=== PATIENT | female | born 1990 | race Caucasian/White ===

== ENCOUNTER 2022-04-04 09:40 | Emergency (ER) | payer OTHER, SELFPAY ==
--- NOTE | 2022-04-04 | ECG_ITS ---
Test Reason : syncopal episode Blood Pressure : / mmHG Vent. Rate : 076 BPM Atrial Rate : 076 BPM P-R Int : 142 ms QRS Dur : 086 ms QT Int : 360 ms P-R-T Axes : 047 057 038 degrees QTc Int : 405 ms Normal sinus rhythm Normal ECG No previous ECGs available Referred By: Generic ED Physician Electronically Signed By:Jaycob Gutiérrez
--- NOTE | ~2022-04-04 | XR_ITS ---
EXAMINATION: XR CHEST CLINICAL INFORMATION: Shortness of breath. COMPARISON: None TECHNIQUE: 2 views of the chest were obtained. FINDINGS: The lungs are clear. The cardiomediastinal silhouette is normal in size. There is no pleural effusion or pneumothorax. No acute osseous abnormality. XR/XR chest 2V IMPRESSION: No acute cardiopulmonary findings.
[2022-04-04 09:59] VITALS: BP 119/75; PULSE 78; RESP 18; TEMP 36.6; O2SAT 98; BMI 23.3
[2022-04-04 10:11] LABS: MANUAL DIFF FLAG NO
[2022-04-04 10:12] LABS: Basophils Percent Auto 0.2 % (0-2); Eosinophils Percent Auto 0.8 % (0-4); Hematocrit 38.3 % (37.0-47.0); Hemoglobin 12.8 g/dl (12.0-16.0); Imm Gran Abs Auto 0.01 X10*3/uL (0.00-0.03); Imm Gran Pct Auto 0.2 % (0.0-0.4); Lymphocytes Absolute Auto 0.7 X10*3/uL (1.2-4.9); Lymphocytes Percent Auto 13.1 % (20-40); Mean Corpuscular HGB Conc 33.4 g/dl (31.0-35.0); Mean Corpuscular Hemoglobin 29.9 pg (27.0-33.0); Mean Corpuscular Volume 89.5 fL (80.0-98.0); Mean Platelet Volume 10.2 fL (9.4-12.3); Monocytes Absolute Auto 0.2 X10*3/uL (0.1-1.2); Monocytes Percent Auto 4.8 % (2-11); Neutrophils Percent Auto 80.9 % (45-73); Platelet Count 203 X10*3/uL (160-400); Red Blood Count 4.28 X10*6/uL (4.20-5.50); Red Cell Distribution Width 13.2 % (11.0-16.0)
[2022-04-04 10:26] LABS: Alanine Aminotransferase < 6 U/L (0-31); Albumin Level 4.1 g/dL (3.5-5.0); Alkaline Phosphatase 53 U/L (39-117); Anion Gap 13 (12-20); Aspartate Amino Transferase 11 U/L (5-31); Bilirubin Total 0.6 mg/dL (0.0-1.0); Blood Urea Nitrogen 11 mg/dL (9-16); Calcium 8.4 mg/dL (8.4-10.2); Carbon Dioxide 22 mmol/L (22-29); Chloride 107 mmol/L (96-108); Creatinine Clr Calc Pharmacy 99.5; Estimated Glomerular Filt Rate > 60; Glucose Random 96 mg/dL (60-115); Potassium 3.7 mmol/L (3.3-5.1); Sodium 138 mmol/L (135-145); Total Protein 6.7 g/dL (6.5-8.0)
[2022-04-04 10:31] VITALS: BP 106/69; PULSE 83
[2022-04-04 10:33] VITALS: BP 118/79; PULSE 87
--- NOTE | 2022-04-04 10:33 | ED_ITS ---
HPI - General Adult General Chief complaint: Syncope Stated complaint: Syncope Time Seen by Provider: 04/04/22 10:16 Source: patient Mode of arrival: ambulatory History of Present Illness HPI narrative: 31-year-old female who presents after a reported ?passing out? last night at approximately 01:00. Patient states that yesterday she began feeling unwell with some epigastric discomfort that is not sharp in nature and denies any vomiting, patient states that she was experiencing a headache and went to take the dog outside and felt lightheaded as well some mild shortness of breath and then states ?it's the next thing I knew I was on the ground?. She then states that when she awoke she was sweaty, continues to feel mildly unwell with some ?body soreness?. Related Data Allergies Allergy/AdvReac Type Severity Reaction Status Date / Time Sulfa (Sulfonamide Allergy Intermediate Swelling Verified 04/04/22 10:25 Antibiotics) Review of Systems Review of Systems: Pertinent positives and negatives as stated in HPI [facility] Past Medical History Source: nursing notes reviewed Medical History Patient denies medical problems Social History Social History Alcohol intake: current Alcohol intake frequency: holidays/special occasions only Smoked in Last 30 Days: No Use of substances other than those prescribed or required for medical reasons: No Advance Directives: No Advance Directives Information Provided: No Patient : No Physical Exam ED Vital Signs: Vital Signs - 24 hr 04/04/22 09:59 04/04/22 10:31 04/04/22 10:33 Temperature 98 F Pulse Rate 78 83 87 Respiratory Rate 18 Blood Pressure 119/75 106/69 118/79 Pulse Oximetry 98 Oxygen Delivery Method Room Air 04/04/22 10:35 Temperature Pulse Rate 99 Respiratory Rate Blood Pressure 110/81 Pulse Oximetry Oxygen Delivery Method BMI result Body Mass Index 23.3 VITAL SIGNS: Reviewed. GENERAL: Well developed, well nourished, in no acute distress. HEAD: Normocephalic/atraumatic EYES: PERRLA, EOMI, no nystagmus EARS: Ext canals without abnormality, TMs non-bulging and non-erythematous NOSE: Nares patent bilateral OROPHARYNX: no oral lesions noted, posterior pharynx clear and non-erythematous without noted tonsillar enlargement/erythema/exudates NECK: Supple, no adenopathy LUNGS: Normal breath sounds. No adventitious sounds or accessory muscle use. SpO2<98> CARDIOVASCULAR: Regular rate and rhythm without noted murmurs, no JVD or lower extremity edema. ABDOMEN: Soft, non-tender, non-distended with bowel sounds. MUSCULOSKELETAL: No tenderness, deformities, or effusions noted on gross insp ection. EXTREMITIES: No cyanosis, clubbing or edema. SKIN: Inspection of the skin reveals no rashes NEUROLOGIC: Alert and oriented x 4. Strength and sensation to light touch were grossly intact x 4. Medical Decision Making Medical Decision Making [facility] Narrative: 31-year-old female with history of vasovagal syncope and on review of all investigations my interpretation is there is no evidence of acute infection, anemia, arrhythmia and viral testing at this time for COVID-19 and influenza is negative. Patient's orthostatics are negative. Review of all investigations and my interpretation is that although this patient is testing negative for COVID/RSV/influenza I suspect that this is a viral illness in etiology and she is otherwise discharged home with instructions for supportive treatment such as Tylenol/ibuprofen for body aches and headache, drinking plenty of fluids and resting. Orthostatics are negative and there are no focal findings. Differential Diagnosis Differential Diagnoses: The differential diagnosis associated with the presentation includes Please see the discussion above Lab Data [facility] Lab Attestation statement: I reviewed the patient's lab results. Please see the discussion above 04/04/22 10:07 04/04/22 10:07 Labs: Lab Results 04/04/22 04/04/22 04/04/22 Range/Units 10:07 10:07 10:07 WBC 5.0 (4.8-10.8) X10*3/uL RBC 4.28 (4.20-5.50) X10*6/uL Hgb 12.8 (12.0-16.0) g/dl Hct 38.3 (37.0-47.0) % MCV 89.5 (80.0-98.0) fL MCH 29.9 (27.0-33.0) pg MCHC 33.4 (31.0-35.0) g/dl RDW 13.2 (11.0-16.0) % Plt Count 203 (160-400) X10*3/uL MPV 10.2 (9.4-12.3) fL Immature Gran % (Auto) 0.2 (0.0-0.4) % Neut % (Auto) 80.9 H (45-73) % Lymph % (Auto) 13.1 L (20-40) % Amelia % (Auto) 4.8 (2-11) % Eos % (Auto) 0.8 (0-4) % Baso % (Auto) 0.2 (0-2) % Lymph # (Auto) 0.7 L (1.2-4.9) X10*3/uL Amelia # (Auto) 0.2 (0.1-1.2) X10*3/uL Eos # (Auto) 0.0 (0.0-0.4) X10*3/uL Baso # (Auto) 0.0 (0.0-0.2) X10*3/uL Abs Immat Gran (auto) 0.01 (0.00-0.03) X10*3/uL Absolute Neuts (auto) 4.0 (2.0-8.3) x10*3/uL Absolute Nucleated RBC 0.000 (0.0-0.012) X10*3/uL Nucleated RBC % (auto) 0.0 (0.0-0.2) /100WBC Sodium 138 (135-145) mmol/L Potassium 3.7 (3.3-5.1) mmol/L Chloride 107 (96-108) mmol/L Carbon Dioxide 22 (22-29) mmol/L Anion Gap 13 (12-20) BUN 11 (9-16) mg/dL Creatinine 0.75 (0.5-1.4) mg/dL Estim Creat Clear Calc 99.5 Estimated GFR > 60 Random Glucose 96 (60-115) mg/dL Calcium 8.4 (8.4-10.2) mg/dL Total Bilirubin 0.6 (0.0-1.0) mg/dL AST 11 (5-31) U/L ALT < 6 (0-31) U/L Alkaline Phosphatase 53 (39-117) U/L Total Protein 6.7 (6.5-8.0) g/dL Albumin 4.1 (3.5-5.0) g/dL Urine Color Urine Appearance Urine pH (5.0-9.0) Ur Specific [place] (1.005-1.025) Urine Protein (Neg-Trace) mg/dL Urine Glucose (UA) (Negative) mg/dL Urine Ketones (Negative) mg/dL Urine Blood (Negative) Urine Nitrite (Negative) Ur Leukocyte Esterase (Negative) Urine Test (NEGATIVE) Monoscreen (Negative) Influenza Type A (PCR) NEGATIVE (Negative) Influenza Type B (PCR) NEGATIVE (Negative) RSV RNA Qual (PCR) NEGATIVE (Negative) SARS-CoV-2 RNA (RT-PCR) NEGATIVE (Negative) 04/04/22 04/04/22 04/04/22 Range/Units 10:07 10:30 10:30 WBC (4.8-10.8) X10*3/uL RBC (4.20-5.50) X10*6/uL Hgb (12.0-16.0) g/dl Hct (37.0-47.0) % MCV (80.0-98.0) fL MCH (27.0-33.0) pg MCHC (31.0-35.0) g/dl RDW (11.0-16.0) % Plt Count (160-400) X10*3/uL MPV (9.4-12.3) fL Immature Gran % (Auto) (0.0-0.4) % Neut % (Auto) (45-73) % Lymph % (Auto) (20-40) % Amelia % (Auto) (2-11) % Eos % (Auto) (0-4) % Baso % (Auto) (0-2) % Lymph # (Auto) (1.2-4.9) X10*3/uL Amelia # (Auto) (0.1-1.2) X10*3/uL Eos # (Auto) (0.0-0.4) X10*3/uL Baso # (Auto) (0.0-0.2) X10*3/uL Abs Immat Gran (auto) (0.00-0.03) X10*3/uL Absolute Neuts (auto) (2.0-8.3) x10*3/uL Absolute Nucleated RBC (0.0-0.012) X10*3/uL Nucleated RBC % (auto) (0.0-0.2) /100WBC Sodium (135-145) mmol/L Potassium (3.3-5.1) mmol/L Chloride (96-108) mmol/L Carbon Dioxide (22-29) mmol/L Anion Gap (12-20) BUN (9-16) mg/dL Creatinine (0.5-1.4) mg/dL Estim Creat Clear Calc Estimated GFR Random Glucose (60-115) mg/dL Calcium (8.4-10.2) mg/dL Total Bilirubin (0.0-1.0) mg/dL AST (5-31) U/L ALT (0-31) U/L Alkaline Phosphatase (39-117) U/L Total Protein (6.5-8.0) g/dL Albumin (3.5-5.0) g/dL Urine Color Yellow Urine Appearance Clear Urine pH 6.0 (5.0-9.0) Ur Specific [place] <= 1.005 (1.005-1.025) Urine Protein Negative (Neg-Trace) mg/dL Urine Glucose (UA) Negative (Negative) mg/dL Urine Ketones Negative (Negative) mg/dL Urine Blood Negative (Negative) Urine Nitrite Negative (Negative) Ur Leukocyte Esterase Negative (Negative) Urine Test NEGATIVE (NEGATIVE) Monoscreen Negative (Negative) Influenza Type A (PCR) (Negative) Influenza Type B (PCR) (Negative) RSV RNA Qual (PCR) (Negative) SARS-CoV-2 RNA (RT-PCR) (Negative) Independent Interpretation I performed an independent interpretation of an: EKG Interpretation: Normal sinus rhythm, HR-76, no STEMI, OH/QRS/QTC is within normal limits. Radiology Impression Radiologist Impression: My interpretation is in agreement with radiology's impression of the imaging study. Discharge Plan Discharge Clinical Impression: Vasovagal syncope, Viral syndrome Patient Disposition: Home, Self-Care Additional Instructions: 1. Recommend [id number] Tylenol/ibuprofen as needed for any headaches or body aches or temperatures greater than 100.4. Drink plenty of water, rest, recommend bland diet. 2. Please follow-up with your primary care provider by calling the office on Tuesday and setting up an appointment for re-evaluation. Return to the ER for any worsening symptoms. Stand Alone Forms: Work/School Release
[2022-04-04 10:35] VITALS: BP 110/81; PULSE 99
--- NOTE | 2022-04-04 10:36 | PC.NURSE ---
AOx3, vss stable. 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 Ortho vitals obtained. waiting for provider.
[2022-04-04 10:38] LABS: Appearance Urine Clear; Color Urine Yellow; Glucose Urine UA Negative (Negative); Leukocyte Esterase Urine Negative (Negative); Nitrite Urine Negative (Negative); Specific Gravity - Urine <= 1.005 (1.005-1.025); Urine Blood Negative (Negative); Urine Ketones Negative (Negative); Urine Protein Negative (Neg-Trace)
[2022-04-04 10:40] LABS: UPreg QC Valid YES; Urine Pregnancy NEGATIVE (NEGATIVE)
[2022-04-04 10:50] LABS: Influenza A PCR NEGATIVE (Negative); Influenza B PCR NEGATIVE (Negative); Resp Syncy Virus RNA Qual PCR NEGATIVE (Negative); SARS COV2 PCR INHOUSE NEGATIVE (Negative)
[2022-04-04 11:33] LABS: Monotest Negative (Negative)
== END 2022-04-04 12:39 | disposition home or self-care (01) ==
PROVIDERS: Emergency Provider Student in an Organized Health Care Education/Training Program
DX: R55 Syncope and collapse (principal); B34.9 Viral infection, unspecified; R51.9 Headache, unspecified; M79.10 Myalgia, unspecified site; Z20.822 Contact with and (suspected) exposure to COVID-19; Z20.828 Contact with and (suspected) exposure to other viral communicable diseases; Z79.899 Other long term (current) drug therapy
CPT/HCPCS: 0241U; 36415; 71046; 80053; 81003; 81025; 85025; 86308; 93005; 99284

== ENCOUNTER 2024-01-12 11:00 | Outpatient (AMB) | payer OTHER, SELFPAY ==
--- NOTE | 2024-01-12 11:15 | MHC.OFFVIS ---
Vital Signs 01/12/24 11:18 Height 5 ft 5 in Weight 146 lb 8 oz BMI 24.4 BP 115/78 Blood Pressure Location Lt brachial Position Sitting Pulse 68 Pulse Source Pulse Oximeter Pulse Oximetry (%) 99 Oxygen Delivery Method Room Air Intake Visit Reasons: J-XL-Ztq-suncope/Change visual/fatigue Engagement Quality Consultant Required: No Accompanied by: Self / Same As Patient Allergies Sulfa (Sulfonamide Antibiotics) Allergy (Intermediate, Verified 01/12/24 11:19) Swelling Medication List - Last Reconciled 01/12/24 by CARLENE Vang sertraline 25 mg PO DAILY 30 days sumatriptan succinate 50 - 100 mg orally at onset of headache, may repeat in 2 hrs PRN; max 2 tabs per day or 4 tabs/week (may take with Ibuprofen) 30 days Do you need a note to return to daycare/school/sports/work: No HPI Comments Details: Right-handed 33-yr-old female presents for new pt evaluation of headache and brain fog. Pt reports she has had episodes of brain fog, poor recall, forgetfulness. The brain fog started about a year after having mild case of Covid-19 in Feb 2020. She has always been a prone to forgetfulness. The brain fog does not occur every day. Often feels that she cannot think, has run out of battery by the end of the day. She forgets why she went into a room, has poor time management, is always late, procrastinates- her whole life. She completed highschool- was a good student, but could not do work w/o waiting until the last minute. Started an associate's program- did not finish, ? difficulty focusing. Also reports her left eye became worse over a year period- saw an ferryboat operator cable at [facility], who dx'd dry eye. Pt reports that this has not improved. Her most bothersome symptoms are brain fog, forgetfulness, and back pain. 2022 Brain MRI w/wo- unremarkable Rheumatology work-up- labs and x-rays were normal. Was referred to cardiology- but missed appt. She also endorses constant phonophobia. When she the brain fog- has episodes of retroorbital or temporal mild sharp shooting pains She has a pressure headache about once a week which lasts until she goes to sleep, a/w eyes feel straining, photophobia, more phonophobia, overall tiredness. Bending over exacerbates head pressure and causes runny nose. She always feels off-balance. She has had a couple of syncope- states she knew she was about to pass out. She had stood up to take her dog out in the middle of the night- started sweating, ear ringing, f/b passing out for a brief moment (still felt like she was thinking)- denies interictal tongue biting or loss of spincter control. Denies being ill prior to the syncopal event. She has had other episodes of feeling near syncopal, which resolve with sitting down. She also endorses anemia. She works in [email or web address] in [place] [employer]. PMH and ROS are notable for:? General: anemia, purplish/blue extremities Musculoskeletal disorders or injury: neck and back pain. feeling of hair tied around her left 3rd toe. easily prone to limb falling asleep if limb compressed. Mood d/o: Anxiety History of syncope GI d/o: GERD, diarrhea alternating w/ constipation. Had stool sample for OP- neg. 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 History of concussion/head injury, Respiratory d/o, CV disease, Clotting or hematology d/o, Endocrine d/o, metabolic d/o. History of seizure. Family history of similar s/s [facility] [place] Medical History Patient denies medical problems Social History Alcohol intake: current Alcohol intake frequency: holidays/special occasions only Physical Exam Vital Signs: Last Vital Signs Pulse 68 01/12/24 11:18 BP 115/78 01/12/24 11:18 Pulse Ox 99 01/12/24 11:18 Oxygen Delivery Method Room Air 01/12/24 11:18 BMI result Body Mass Index 24.4 Const Orientation/consciousness: patient oriented x3 Resp Effort & Inspection: normal respiratory effort and able to speak in complete sentences Neuro Other: Bilateral marked posterior cervical tightness. Cervical ROM: limited cervical extension Kyphosis Bilateral Spurling: negative, though does induce posterior cervical discomfort Right shoulder drooped at rest Negative Fletcher's BLE purplish at rest, resolves with taking a few steps, but quickly returns General: patient oriented x3 Cranial nerves: Yes CN's II-XII intact bilaterally Cognition (Neuro): normal cognition Gait exam (Neuro): Normal gait present Motor exam (neuro): 5/5 motor strength present throughout Deep tendon reflexes (DTR's): Right triceps reflex intensity grade: 2+, Left triceps reflex intensity grade: 2+, Rt Biceps (C5, C6): 2+, Left biceps reflex intensity grade: 2+, Right brachioradialis reflex intensity grade: 2+, Left brachioradialis reflex intensity grade: 2+, Right patellar reflex intensity grade: 2+ and Left patellar reflex intensity grade: 2+ Coordination: [id number]-[id number] test normal, tandem gait normal and Romberg test negative Pupils: Normal pupillary reactivity/response: bilateral Psych Appearance: grossly normal Mental Status: mental status grossly normal Speech and movement: Normal speech and movement present Affect: normal affect Attitude: cooperative Thought process: Normal thought process present Assessment & Plan Assessment & Plan (1) Syncope: Code(s): R55 - Syncope and collapse Category: Medical Qualifiers: Syncope type: unspecified Qualified Code(s): R55 - Syncope and collapse (2) Pre-syncope: Code(s): R55 - Syncope and collapse Category: Medical (3) Brain fog: Comment: DDx includes migraine, vestibular migraine, ADHD, vascular d/o. Code(s): R41.89 - Other symptoms and signs involving cognitive functions and awareness Category: Medical (4) Cervicalgia: Code(s): M54.2 - Cervicalgia Category: Medical (5) Kyphosis: Code(s): M40.209 - Unspecified kyphosis, site unspecified Category: Medical Qualifiers: Kyphosis type: unspecified Spinal region: cervicothoracic Qualified Code(s): M40.203 - Unspecified kyphosis, cervicothoracic region (6) Decreased vision of left eye: Code(s): H54.62 - Unqualified visual loss, left eye, normal vision right eye Category: Medical (7) Anxiety: Code(s): F41.9 - Anxiety disorder, unspecified Category: Medical (8) Migraine without aura: Code(s): G43.009 - Migraine without aura, not intractable, without status migrainosus Category: Medical Qualifiers: Status migrainosus presence: without status migrainosus Intractability: not intractable Qualified Code(s): G43.009 - Migraine without aura, not intractable, without status migrainosus Plan Reviewed previous c-spine and t-spine XR reprots from July 2023 at the [facility]- read as normal. Pt advised to undergo: Cardiology consult d/t h/o syncope Psychiatry consult to eval for cognitive s/s, ? ADD Ophthalmology consult for visual testing if not completed PT eval & tx For overall management: Optimize good self-care, including but not limited to maintaining a healthy diet, adequate fluid intake, adequate sleep, and engaging in regular physical activity. Track headaches/brain fog/syncopal s/s, especially after any treatment regimen changes. Migraine [employer] is one of many headache tracking apps. Information shared on non-pharmacological interventions which may help to alleviate headache attack burden. For light sensitivity: Patient may benefit from trying blue light filtering glasses, green glasses orlight tx. For sound sensitivity: Patent may benefit from trying noise cancellation ear plugs. For acute headache treatment: Discussed importance of taking acute medications at the first sign of headache, however stressed importance of avoiding acute medication overuse (especially with combined headache medications). Trial Sumatriptan 100mg tab, 1/2 - 1 tab (50-100mg) at onset of headache, may repeat in 2 hours. Max of 2 tabs (200mg) per 24 hours. May adjunct with OTC Tylenol 650mg q 4 hours, Ibuprofen 600mg q 6 hours, or Naproxen 440mg q 12 hrs prn. Potential adverse effects of triptans, include but are not limited to nausea, fatigue, chest tightness/tingling (usually passes within a few minutes), medication overuse headaches. Would like to see which of her s/s are triptan responsive. Previous acute migraine medication trials: none at this time Acute migraine medication contraindications: None at this time For headache prevention medication: Preventative medications should be taken routinely as prescribed for best effect, it may take several weeks for full effect to take effect. Start Sertraline 25mg qam- may help syncopal/pre-syncopal episodes, dizziness, brain fog. Previous migraine prevention medication trials: none at this time Migraine prevention medication contraindications: caution w/ anti-hypertensives d/t h/o syncope. Aimovig d/t possible Raynaud's or diminished peripheral circulation. Pt seen in collaboration w/ Dr Kesha Pickens. Pt to follow-up in 3 months or sooner prn. Orders: Orders PT Evaluation and Treatment 01/12/24 M40.209 - Unspecified kyphosis, site unspecified, M54.2 - Cervicalgia, M54.9 - Dorsalgia, unspecified Referrals Ophthalmology Referral H54.62 - Unqualified visual loss, left eye, normal vision right eye Cardiology Referral R55 - Syncope and collapse Psychiatry Referral F41.9 - Anxiety disorder, unspecified, R41.89 - Other symptoms and signs involving cognitive functions and awareness Medications: New sertraline 25 mg PO DAILY 30 tabs 3RF 30 days sumatriptan succinate 50 - 100 mg orally at onset of headache, may repeat in 2 hrs PRN; max 2 tabs per day or 4 tabs/week (may take with Ibuprofen) 12 tabs 6RF migraine headache 30 days Coding Level of Care Code New Pt Level 4 (11650) Diagnoses Syncope, unspecified syncope type R55 Syncope type: unspecified Pre-syncope R55 Brain fog R41.89 Cervicalgia M54.2 Kyphosis of cervicothoracic region, unspecified kyphosis type M40.203 Kyphosis type: unspecified Spinal region: cervicothoracic Decreased vision of left eye H54.62 Anxiety F41.9 Migraine without aura and without status migrainosus, not intractable G43.009 Status migrainosus presence: without status migrainosus Intractability: not intractable
[2024-01-12 11:18] VITALS: BP 115/78; PULSE 68; O2SAT 99; BMI 24.4
== END 2024-01-12 12:33 | disposition home or self-care (01) ==
LOC: HO.HSMS 11:01
PROVIDERS: PCP Internal Medicine; Visit Provider Nurse Practitioner Family
DX: R55 Syncope and collapse (principal); R41.89 Other symptoms and signs involving cognitive functions and awareness; M54.2 Cervicalgia; M40.203 Unspecified kyphosis, cervicothoracic region; H54.62 Unqualified visual loss, left eye, normal vision right eye; F41.9 Anxiety disorder, unspecified; G43.009 Migraine without aura, not intractable, without status migrainosus
CPT/HCPCS: 99204

== ENCOUNTER 2024-02-09 13:53 | Outpatient (AMB) | payer OTHER, SELFPAY ==
--- NOTE | 2024-02-09 13:55 | A.OFFPSYCH_ITS ---
Intake Intake Visit Reasons: consultation Director Of Distance Learning Required: No Allergies Sulfa (Sulfonamide Antibiotics) Allergy (Intermediate, Verified 01/12/24 11:19) Swelling Medication List - Last Reconciled 02/09/24 by Lakisha Bruce APRN sertraline 25 mg PO DAILY 30 days sumatriptan succinate 50 - 100 mg orally at onset of headache, may repeat in 2 hrs PRN; max 2 tabs per day or 4 tabs/week (may take with Ibuprofen) 30 days HPI- Psychiatric Chief Complaint: consultation HPI Narrative: pt was referred by neurologist for evaluation of attention and concentration difficulties. Pt reports she is struggling with brain fog difficulty focusing, mind all ove rthe place frequently feeling overwhelemed with too much on her plate, too much nois, interuptions by others. She reports she has always struggled with these symptoms but she has more demands on her and finds herself tired from trying to deal with the symptoms; she has tried many things to cope. She uses reminders and calendars. she got good grades in school growing up but always waited till the last minute to do things. she procrastinated until she got so anxious and stressed that she would then complete assignments. Pt says she worries and feels anxious about lists of things she needs to do. she can get anxious and irritable if daughter interupts her focus or when tries to tell her too many items on schedule. She feels tired all the time. she finds it hard to relax and unwind. She is very forgetful. She scored an 18 on ADHD scale (ASRS-v1.1) Her PHQ9= 1 and her GAD7= 3. Pt does have trauma in her upbringing but has coped well and some intrusive memories but they are not overwhelming and her sleep is intact; she has nightmares occasionally but not consistently. she did not describe avoidance of traumatic reminders. Past Psychiatric History: none Subjective Subjective Subjective Medication Compliance: Yes Side effects from medications: No Review of Systems Medical Review of Systems: unchanged Mental Status Exam Mental Status Exam Patient Appearance: Well Grooomed and Appropriate Patient Orientation: Person, Place and Time Level of Consciousness: Awake, Appropriate and Alert Patient Behavior: Appropriate, Cooperative and Good Eye Contact Mood Description: Appropriate and Anxious Affect Description: Appropriate and Anxious Patient Cognition Impaired: No Ability to Follow Directions: Good Speech Pattern: Clear, Appropriate and Soft-Spoken Memory Description: Intact Hallucinations: None Delusions: Not Present Thought Process: Intact and Goal Oriented Thought Content: positive for Intact and positive for Goal Oriented Judgement: Good Assessment and Plan Assessment & Plan (1) ADHD (attention deficit hyperactivity disorder): Status: Acute Qualifiers: Attention deficit-hyperactivity disorder type: combined inattentive- hyperactive Qualified Code(s): F90.2 - Attention-deficit hyperactivity disorder, combined type Code(s): F90.9 - Attention-deficit hyperactivity disorder, unspecified type Plan Differential dx is PTSD discussed options for treating Adult ADHD trial of addertall 5mg BID; start with 1/2 tab and if no SE then increase to 5 mg and may increase to 10mg BID 4 hours apart return in 4 weeks labs ordered as below to rule out medical etiology to inattention and distractibility Medications: New dextroamphetamine-amphetamine 5 mg (Adderall) administer doses at least 4-6 hours apart; Partial Fill upon patient request. 5 mg PO BID 60 tabs 0RF Orders: Orders Vitamin B12 and Folate Today F90.9 - Attention-deficit hyperactivity disorder, unspecified type Vitamin B1 Today F90.9 - Attention-deficit hyperactivity disorder, unspecified type Vitamin B6 Today F90.9 - Attention-deficit hyperactivity disorder, unspecified type TSH reflex Free T4 Today F90.9 - Attention-deficit hyperactivity disorder, unspecified type Counseling and coordination of Care Pt. Self Management counseling: Maintenance-social rhythm, Mod caffeine/ETOH intake, Sleep hygiene, Behavior activation and General coping skills Medication management counseling: Effectiveness, Side effects, Dosing range, Duration, Drug interaction and Adherence Diagnosis and Prognosis Counseling: Accuracy of diagnosis, Prognosis over time, Impact of diagnosis on life functions, Impact of family relationship, Problematic behaviors secondary to diagnosis and Adequacy of current interventions Details: I spent 75 minutes reviewing the record, seeing the patient and documenting in the medical record. Counseling provided to the patient/caregiver as outlined below. Addressed patient/caregiver concerns regarding current medication regime including effective adherence. Addressed patient/caregiver concerns regarding diagnosis and prognosis including accuracy of diagnosis, prognosis over time, impact of diagnosis. Addressed patient/caregiver concerns regarding impact of recent stressors. 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 Grew up mostaly with grandmother as parents had addiction issues; she and her younger sister went to foster care off and on. She and sister spent 2 yrs in foster care until pt turned 20 and then she took custody of her younger sister. she also has 2 older sister one of whom recently from metastatic breast cancer. Substance History: none Trauma History: yes childhood Coding Level of Care Code Psych Diag Eval w/Med (24102) Diagnoses Attention deficit hyperactivity disorder (ADHD), combined type F90.2 Attention deficit-hyperactivity disorder type: combined inattentive-hyperactive
== END 2024-02-09 15:19 | disposition home or self-care (01) ==
LOC: HO.HOP 13:53
PROVIDERS: PCP Internal Medicine; Visit Provider Clinical Nurse Specialist Psychiatric/Mental Health
DX: F90.2 Attention-deficit hyperactivity disorder, combined type (principal)
CPT/HCPCS: 90792

== ENCOUNTER → 2024-02-09 13:53 | Outpatient (BNVA) | payer OTHER, SELFPAY | PROVIDERS: PCP Internal Medicine; Visit Provider Clinical Nurse Specialist Psychiatric/Mental Health | DX: F90.2 Attention-deficit hyperactivity disorder, combined type (principal); Z71.89 Other specified counseling | CPT/HCPCS: 90792 ==

== ENCOUNTER 2024-03-05 09:00 | Outpatient (RCR) | payer OTHER, SELFPAY ==
--- NOTE | 2024-02-15 09:44 | MHC.PT.EP ---
[facility] [place] Office [place] Office [place] Office [address] Evelin Madrigal [address] [phone] F: [phone] F: [phone] F: [phone] F: [phone] Physical Therapy Plan of Care Date of Evaluation: 02/15/24 Date of Surgery: n/a Diagnosis: cervicalgia Assessment: Patient is a 33 year old female presenting to PT with complaints of pain in her neck. Pt reports onset of pain began July2023 due to insidious onset. She presents today with impairments in posture, tenderness to palpation. 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 Pt expresses custodial goal of reducing pain, and is motivated to work towards this in PT. Clinical presentation today is most consistent with signs and sx associated with neck pain and pt will benefit from skilled PT 2 week x 4 weeks to address the following problems and impairments noted upon evaluation: posture, tenderness to palpation. These problems limit the patient with the following functional activities: work, ADLs, household duties. The prescribed treatment plan of care is medically necessary. Co-morbidities of hx seizure were identified and taken into considerations of plan of care. Pt was educated on HEP, role of PT, prognosis, POC. Frequency and Duration: The patient will be seen 2 x week x 4 weeks Short Term Goals: Pt will demonstrate ability to move through cervical ROM with min to no tightness in 2 weeks. Pt will demonstrate improved posture as evidence by min to no cues during session in 2 weeks. Pt will demonstrate less tenderness to palpation of UT, rhomboids, and cervical paraspinals in 2 weeks. Jail Goals: Pt will demonstrate improved NDI score by 10% in 4 weeks for improved functional mobility. Pt will demonstrate compliance and independence with HEP for custodial management of sx in 4 weeks. Pt will demonstrate ability to work a full day with min to no pain at the end in 4 weeks for return to PLOF. Treatment Plan: Modalities to reduce pain, spasms and effusion. Manual therapy to restore motion and function. Therapeutic exercise to improve strength and flexibility. Neuromuscular re-education for posture and balance. Therapeutic activities to return to functional activities of daily living. Electronically signed by: Nadine Kahn, PT, DPT, ATC Please sign and return to therapist. Thank you for your referral.
--- NOTE | 2024-04-09 08:13 | MHC.PT.DC ---
[facility] [place] Office [place] Office [place] Office [address] Evelin Madrigal [address] [phone] F: [phone] F: [phone] F: [phone] F: [phone] Physical Therapy Discharge Report Diagnosis: cervicalgia Date of Surgery: n/a Date of Evaluation: 02/15/24 Date of Discharge: 04/09/24 Treatments to Date: 3 Cancellations to Date: 2 No Shows to Date: 0 Discharge Status: Discharge Summary: Pt cancelled last scheduled appointment and has not called to be scheduled in > 30 days. Pt therefore to be d/c per policy. Electronically signed by: Nadine Kahn, PT, DPT, ATC Please sign and return to therapist. Thank you for your referral.
== END 2024-04-09 08:14 | disposition home or self-care (01) ==
LOC: HO.PTCHIC 09:00
PROVIDERS: PCP Internal Medicine; Visit Provider Nurse Practitioner Family
DX: M54.2 Cervicalgia (principal); M54.9 Dorsalgia, unspecified; M40.209 Unspecified kyphosis, site unspecified
CPT/HCPCS: 97110; 97161

== ENCOUNTER 2024-03-08 09:36 | Outpatient (AMB) | payer OTHER, SELFPAY ==
--- NOTE | 2024-03-08 09:23 | A.OFFPSYCH_ITS ---
Intake Intake Visit Reasons: consultation Director Of Financial Reporting Required: No Allergies Sulfa (Sulfonamide Antibiotics) Allergy (Intermediate, Verified 01/12/24 11:19) Swelling Medication List - Last Reconciled 03/08/24 by Lakisha Bruce APRN dextroamphetamine-amphetamine 5 mg (Adderall) 5 mg PO BID sertraline 25 mg PO DAILY 30 days sumatriptan succinate 50 - 100 mg orally at onset of headache, may repeat in 2 hrs PRN; max 2 tabs per day or 4 tabs/week (may take with Ibuprofen) 30 days HPI- Psychiatric Chief Complaint: consultation HPI Narrative: pt reports adderall 5 mg qam is very helpful; she feels calm and focused. she is more able to stay on task. no side effects; sleep and appetite intact. mood stable anxiety is reduced; no SI or HI. no medical changes. Past Psychiatric History: none Subjective Subjective Subjective Medication Compliance: Yes Side effects from medications: No Review of Systems Medical Review of Systems: unchanged Mental Status Exam Mental Status Exam Patient Appearance: Well Grooomed and Appropriate Patient Orientation: Person, Place, Time and Situation Level of Consciousness: Awake and Appropriate Patient Behavior: Appropriate, Cooperative and Good Eye Contact Mood Description: Calm Affect Description: Calm and Constricted Patient Cognition Impaired: No Ability to Follow Directions: Good Speech Pattern: Clear, Appropriate and Coherent Memory Description: Intact Hallucinations: None Delusions: Not Present Thought Process: Intact and Goal Oriented Thought Content: positive for Intact Judgement: Good Assessment and Plan Assessment & Plan (1) ADHD (attention deficit hyperactivity disorder): Status: Acute Qualifiers: Attention deficit-hyperactivity disorder type: combined inattentive- hyperactive Qualified Code(s): F90.2 - Attention-deficit hyperactivity disorder, combined type Code(s): F90.9 - Attention-deficit hyperactivity disorder, unspecified type Plan continue adderall - may increase by 5 mg increments to bis or tid 4 hours apart; pt starts day at 530am and may need tid dosing; will see again in 8 weeks to adjust dose or switch to long acting if needed Medications: New dextroamphetamine-amphetamine 10 mg (Adderall) administer doses at least 4-6 hours apart; Partial Fill upon patient request. 10 mg PO BID 60 tabs 0RF Discontinued sertraline Discontinued Reason: Doctor's Order 25 mg PO DAILY 30 days 30 tabs 3RF Counseling and coordination of Care Pt. Self Management counseling: Exercise, Maintenance-social rhythm, Mod caffeine/ETOH intake, Nutrition education and improvement, Sleep hygiene, Behavior activation and General coping skills Medication management counseling: Effectiveness, Side effects, Dosing range, Duration, Drug interaction and Adherence Diagnosis and Prognosis Counseling: Accuracy of diagnosis, Prognosis over time, Impact of diagnosis on life functions, Impact of family relationship, Problematic behaviors secondary to diagnosis and Adequacy of current interventions Details: I spent 40 minutes reviewing the record, seeing the patient and documenting in the medical record. Counseling provided to the patient/caregiver as outlined below. Addressed patient/caregiver concerns regarding current medication regime including effective adherence. Addressed patient/caregiver concerns regarding diagnosis and prognosis including accuracy of diagnosis, prognosis over time, impact of diagnosis. Addressed patient/caregiver concerns regarding impact of recent stressors. 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 Grew up mostaly with grandmother as parents had addiction issues; she and her younger sister went to foster care off and on. She and sister spent 2 yrs in foster care until pt turned 20 and then she took custody of her younger sister. she also has 2 older sister one of whom recently from metastatic breast cancer. Substance History: none Trauma History: yes childhood Coding Level of Care Code Est Pt Level 4 (15533) Diagnoses Attention deficit hyperactivity disorder (ADHD), combined type F90.2 Attention deficit-hyperactivity disorder type: combined inattentive- hyperactive
== END 2024-03-08 09:40 | disposition home or self-care (01) ==
PROVIDERS: PCP Internal Medicine; Visit Provider Clinical Nurse Specialist Psychiatric/Mental Health
DX: F90.2 Attention-deficit hyperactivity disorder, combined type (principal)
CPT/HCPCS: 99214

== ENCOUNTER → 2024-03-08 09:36 | Outpatient (BNVA) | payer OTHER, SELFPAY | PROVIDERS: PCP Internal Medicine; Visit Provider Clinical Nurse Specialist Psychiatric/Mental Health | DX: F90.9 Attention-deficit hyperactivity disorder, unspecified type (principal) ==

== ENCOUNTER 2024-05-04 09:03 | Outpatient (AMB) | payer OTHER, SELFPAY ==
--- NOTE | 2024-05-04 09:09 | MHC.OFFVISPS ---
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 Required: No Allergies Sulfa (Sulfonamide Antibiotics) Allergy (Intermediate, Verified 01/12/24 11:19) Swelling Medication List - Last Reconciled 05/04/24 by Lakisha Bruce APRN dextroamphetamine-amphetamine 10 mg (Adderall) 10 mg PO BID sumatriptan succinate 50 - 100 mg orally at onset of headache, may repeat in 2 hrs PRN; max 2 tabs per day or 4 tabs/week (may take with Ibuprofen) 30 days HPI- Psychiatric Chief Complaint: consultation HPI Narrative: taking adderall 10mg daily and sometimes takes the second dose; she reports improvement; she feels less foggy; she can focus and concentrate better; she iss more productive at work; she denies side effects; appetite and sleep intact; no syncopal episodes; no chest pain. no increase in anxiety; pt does report that after our first meeting she relaized that she does have nightmaress several times a week. she also describes intrusive fearful thoughts and compulsions to do things t dhillon off negative consequences. fro example she must use 4 pumps of body wash or she'll have a bad day- she knows its irrational but has to follwo through on using 4 pumps when 2 would actually be adquate. although she knows its irrational she feels compelled to do it or risk a bad day. she also gives the example of cutting her 8 year olds grapes up very small for lunch at school to prevent choking - she knows its irrational but can not leave them whole due to the intrusive thought that her daughter will choke; we discussed the possibility of OCD and or PTSD. discussed options for meds but she does not want tto take ore medications at this time; she will try thera[y; she has reached out to [facility] but no one has returned her call. Past Psychiatric History: none Subjective Subjective Subjective Medication Compliance: Yes Side effects from medications: No Review of Systems Medical Review of Systems: unchanged Mental Status Exam Mental Status Exam Patient Appearance: Well Grooomed and Appropriate Patient Orientation: Person, Place, Time and Situation Level of Consciousness: Awake, Appropriate and Alert Patient Behavior: Appropriate and Cooperative Mood Description: Anxious Affect Description: Anxious Patient Cognition Impaired: No Ability to Follow Directions: Good Speech Pattern: Clear and Appropriate Memory Description: Intact Hallucinations: None Delusions: Not Present Thought Process: Intact Thought Content: positive for Intact Judgement: Fair Assessment and Plan Assessment & Plan (1) ADHD (attention deficit hyperactivity disorder): Status: Acute Qualifiers: Attention deficit-hyperactivity disorder type: combined inattentive-hyperactive Qualified Code(s): F90.2 - Attention-deficit hyperactivity disorder, combined type Code(s): F90.9 - Attention-deficit hyperactivity disorder, unspecified type Plan rule out OCD rule out PTSD continue adderall 10mg bid as needed Medications: Refilled dextroamphetamine-amphetamine 10 mg (Adderall) administer doses at least 4-6 hours apart; Partial Fill upon patient request. 10 mg PO BID 60 tabs 0RF Counseling and coordination of Care Pt. Self Management counseling: Nutrition education and improvement, Sleep hygiene and General coping skills Medication management counseling: Effectiveness, Side effects, Dosing range, Duration, Drug interaction and Adherence Diagnosis and Prognosis Counseling: Accuracy of diagnosis, Prognosis over time, Impact of diagnosis on life functions, Impact of family relationship, Problematic behaviors secondary to diagnosis and Adequacy of current interventions Details: I spent 35 minutes reviewing the record, seeing the patient and documenting in the medical record. Counseling provided to the patient/caregiver as outlined below. Addressed patient/caregiver concerns regarding current medication regime including effective adherence. Addressed patient/caregiver concerns regarding diagnosis and prognosis including accuracy of diagnosis, prognosis over time, impact of diagnosis. Addressed patient/caregiver concerns regarding impact of recent stressors. 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 Grew up mostaly with grandmother as parents had addiction issues; she and her younger sister went to foster care off and on. She and sister spent 2 yrs in foster care until pt turned 20 and then she took custody of her younger sister. she also has 2 older sister one of whom recently from metastatic breast cancer. Substance History: none Trauma History: yes childhood Coding Level of Care Code Est Pt Level 4 (28488) Diagnoses Attention deficit hyperactivity disorder (ADHD), combined type F90.2 Attention deficit-hyperactivity disorder type: combined inattentive-hyperactive
== END 2024-05-04 09:39 | disposition home or self-care (01) ==
LOC: HO.HOP 09:03
PROVIDERS: PCP Internal Medicine; Visit Provider Clinical Nurse Specialist Psychiatric/Mental Health
DX: F90.2 Attention-deficit hyperactivity disorder, combined type (principal)
CPT/HCPCS: 99214

== ENCOUNTER → 2024-05-04 09:03 | Outpatient (BNVA) | payer OTHER, SELFPAY | PROVIDERS: PCP Internal Medicine; Visit Provider Clinical Nurse Specialist Psychiatric/Mental Health | DX: F90.9 Attention-deficit hyperactivity disorder, unspecified type (principal) ==

== ENCOUNTER 2024-06-06 10:02 | Outpatient (AMB) | payer OTHER, SELFPAY ==
[2024-06-06 10:06] VITALS: BP 100/60; PULSE 68; BMI 22.4
--- NOTE | 2024-06-06 10:06 | A.OFFVIS_ITS ---
Vital Signs 06/06/24 10:06 06/06/24 10:23 06/06/24 10:24 06/06/24 10:27 Height 5 ft 5 in Weight 134 lb 7.712 oz BMI 22.4 BP 100/60 114/71 114/73 118/74 Blood Pressure Location Lt brachial Lt brachial Lt brachial Lt brachial Position Sitting Supine Sitting Standing Pulse 68 73 75 105 H Pulse Source Pulse Oximeter Pulse Oximeter Pulse Oximeter Pulse Oximeter Intake Visit Reasons: Syncope and collapse Allergies Sulfa (Sulfonamide Antibiotics) Allergy (Intermediate, Verified 01/12/24 11:19) Swelling HPI Comments Details: Thank you for referring Keily in cardiology consultation today for symptoms of syncope. Patient was a pleasant 33-year-old female with longstanding history of orthostatic lightheadedness since age of 20. She was started managing this with increase fluid and now increase salt intake. However symptoms persist. She gets symptoms of lightheadedness and tunnel vision and if she does not sit down she has a tendency to pass out. The last episode of syncope was 2 years ago when she was at home and she did not sit down immediately and she found herself on the floor. Symptoms and regained consciousness within less than a minute. There were no seizure-like activities noted. She was sweating profusely at time and with rapid heart rate. She was noted elevated heart rate when she was these episodes of lightheadedness but no rapid palpitations. She has not had any workup in the past for the same. She denies any other symptoms. She exercises regularly and does not get symptoms with exercise. Denies any exertional chest pain or shortness of breath. No heart failure symptoms. Other think she notices when she is sitting for prolonged period of time she notices change in the skin color in the lower extremity. [facility] Medical History Patient denies medical problems Family History Mother No problems noted. Father No problems noted. Social History Alcohol intake: current Alcohol intake frequency: holidays/special occasions only Patient Tobacco Use Status: Never used Tobacco Review of Systems Const Reports daytime sleepiness and Denies weakness ENT Reports dizziness Card Denies chest pain, Denies chest pain with activity, Denies syncope, Denies rapid heart rate, Denies pedal edema, Denies edema, Denies leg edema, Denies lightheadedness, Reports palpitations, Denies dyspnea, Denies dyspnea on exertion and Denies orthopnea Resp Denies cough, Denies dyspnea and Denies dyspnea on exertion GI Denies hematochezia and Denies change in stool character Musc Denies abnormal gait, Denies muscle cramps, Denies muscle weakness, Denies numbness, Denies radiating pain into limb and Denies tingling Neuro Denies abnormal gait, Reports dizziness, Denies syncope, Denies numbness, Denies tingling and Denies weakness Endo Reports palpitations Physical Exam Vital Signs: Last Vital Signs Pulse 105 H 06/06/24 10:27 BP 118/74 06/06/24 10:27 BMI result Body Mass Index 22.4 Const General: cooperative, comfortable, no acute distress, well developed, alert, awake, Physically active and well groomed Nutritional Appearance: well nourished and thin Orientation/consciousness: patient oriented x3 Limitations: no limitations HEENT Head: Yes normocephalic and Yes atraumatic Neck Neck: Yes trachea midline, Yes supple and Yes no JVD Resp Effort & Inspection: normal respiratory effort Auscultation: clear to auscultation bilaterally Cardio Jugular venous distension: no JVD Palpation: normal PMI Rate: regular rate Rhythm: regular rhythm Heart sounds: S1 normal heart sound present, S2 normal heart sound present, no click, no gallops, no murmurs and no rubs GI Auscultation: normal bowel sounds Skin General skin exam: no rashes or lesions noted Neuro General: patient oriented x3 and no focal motor deficits Extrem General: Yes no clubbing, cyanosis or edema Office Procedures EKG Details: EKG shows normal sinus rhythm with short VA otherwise normal EKG with no pre- excitation and normal QT interval 98420-Kmcyxohvbcklqhqpq, Complete Assessment & Plan Assessment & Plan (1) Syncope: Code(s): R55 - Syncope and collapse Category: Medical Qualifiers: Syncope type: unspecified Qualified Code(s): R55 - Syncope and collapse Plan: 1 episode of syncope couple of years ago with repeated and persistent symptoms of orthostatic lightheadedness is young woman which has been longstanding. She says she has not had significant change in his lifestyle related to these episodes but wants to figure out as to the cause of this episode and treatment. She has self-treated with increase water and salt intake. We discussed about potential differential diagnose including vasovagal syncope and/or postural orthostatic tachycardia syndrome. Would suggest further treatment based on the findings. Have recommended her to undergo head-up tilt-table test to assess for her hemodynamic response to orthostatic tilt as well as a Holter monitor to assess for any significant arrhythmias. Will also suggest echocardiogram to evaluate the structure of her heart. Further treatment based on the findings. Advised to continue pursue increase water and salt intake. Also discussed about potential support stockings with pressure to help with adequate venous return during standing posture to help maintain stroke volume and cardiac output. Orthostatic precautions were discussed and she understands them well. Will follow up in the clinic after above-mentioned test. Thank you for allowing me to partake in his care Coding Level of Care Code New Pt Level 4 (84075) Complex EM visit Add On G2211 Diagnoses Syncope, unspecified syncope type R55 Syncope type: unspecified CPT Codes EKG - CPT: 77956-Qbylotegxdgabllzc, Complete ([id number])
[2024-06-06 10:23] VITALS: BP 114/71; PULSE 73
[2024-06-06 10:24] VITALS: BP 114/73; PULSE 75
[2024-06-06 10:27] VITALS: BP 118/74; PULSE 105
--- OUTSIDE RECORDS SUMMARY | 2024-06-06 11:35 | XMS_ITS | Encounter Summary ---
Author Organization [facility] Address [address] [place] [address] Care Team Providers Care Business Intelligence Engineer Name Role Phone Dorys Tan MD Primary Care Prov ider Reason for Referral * Imaging (Routine) - Closed Specialty Diagnoses / Procedures Referred By Phil davdi Referred To Contact Radiology Diagnoses Breast lump Procedures US Breast Limited Right Dorys Tan MD [address] [place] [address] Phone: tel: fax: [address] Phone: tel: Referral ID Status Reason Start Date Expiration Date Visits Re quested Visits Authorized [id number] Closed 05/31/2024 05/31/2025 1 1 Reason for Visit * Imaging (Routine) - Closed Specialty Diagnoses / Procedures Referred By Phil david Referred To Contact Radiology Diagnoses Breast lump Procedures US Breast Limited Right Dorys Tan MD [address] [place] [address] Phone: tel: fax: [address] Phone: tel: Referral ID Status Reason Start Date Expiration Date Visits Re quested Visits Authorized [id number] Closed 05/31/2024 05/31/2025 1 1 Encounter Details Date Type Department Care Team (Latest Contact Info) Description 05/31/2024 1:59 PM EDT - 05/31/2024 11:59 PM EDT Hospital Encounter Radiology Department - [address] [address] Breast lump Discharge Disposition: Home or Self Care Social History Tobacco Use Types Packs/Day Years Used Date Smoking Tobacco: Former Cigarettes Q uit: 03/07/2014 Smokeless Tobacco: Never Alcohol Use Standard Drinks/Week Comments Yes 0 (1 standard drink = 0.6 oz pur e alcohol) Comments Unknown Sex and Gender Information Value Date Recorded Sex Assigned at Not on file Legal Sex Female 9:54 PM EST Gender Identity Not on file Sexual Orientation Not on file documented as of this encounter Discharge Disposition Disposition Code Departure Means Destination Home or Self Care documented in this encounter Plan of Treatment Upcoming Encounters Date Type Department Care Team (Late st Contact Info) Description 07/24/2024 2:30 PM EDT Appointment [address] [address] 12/01/2024 11:00 AM EDT Appointment Radiology Department - [address] [address] documented as of this encounter Procedures Procedure Name Priority Date/Time Associated Diagnosis Comments US BREAST LIMITED RIGHT Routine 05/31/2024 2:05 PM EDT Breast lump documented in this encounter Results * US Breast Limited Right (05/31/2024 2:05 PM EDT) Anatomical Region Laterality Modality Breast Right Ultrasound 05/31/2024 2:16 PM EDT Impressions 05/31/2024 3:39 PM EDT LEFT: Biopsy-proven fibroadenomas (2 adjacent solid masses) at 2 o'clock position retroareolar, stable in size from prior ultrasound from November 2023. ??Benign, no evidence of malignancy. ??Clinical follow-up is recommended. RIGHT: Palpable concern centered at 7 o'clock position 5 cm from the nipple correlates with an area of multiple groups of cysts, some of them septated. ??Benign, no evidence of malignancy. ??Clinical follow-up is recommended. Given patient's strong family history of breast cancer, patient is scheduled to return to routine screening mammogram in November 2024. Findings and recommendations communicated to the patient via technologist infectious disease. BI-RADS CATEGORY: 2 - BENIGN RECOMMENDATION: Return to annual mammography. -------- FINAL REPORT -------- Dictated By: Roscoe Rene Dictated Date: 05/31/2024 14:16 ET Assigned Physician: Roscoe Rene Reviewed and Electronically Signed By: Roscoe Rene Signed Date: 05/31/2024 15:39 ET Workstation ID: [id number] Transcribed By: Self Edit Transcribed Date: 05/31/2024 14:56 ET Narrative 05/31/2024 3:39 PM EDT US BREAST LIMITED RIGHT US BREAST LIMITED LEFT CLINICAL: Left: This is a 6 month follow-up of enlarging biopsy-proven 2 adjacent fibroadenomas located at 2 o'clock position retroareolar. ??The biopsy was performed at the [facility] on May 13, 2021. Right: Today, the patient also complained of palpable concern at 7 o'clock position. COMPARISON: Bilateral mammogram on December 02, 2023. ??Left breast ultrasound on December 02, 2023, May 13, 2021, March 26, 2021 and September 24, 2020. ?? FINDINGS: LEFT: Targeted ultrasound was performed at the location of previously described sonographic finding. ??Redemonstration of the 2 adjacent solid masses at 2 o'clock position retroareolar. ??The larger mass measures 2.1 x 1.2 x 1.9 cm and now contains internal cysts; prior measurements were 2.0 x 1.1 x 2.0 cm in November 2023, and 1.7 x 0.8 x 1.3 cm in March 2021. ??The smaller mass measures 1.8 x 0.8 x 1.7 cm, with prior measurements of 1.8 x 0.8 x 1.7 cm in November 2023 and 1.3 x 0.6 x 1.3 cm in March 2021. ??No abnormal vascularity demonstrated with color Doppler evaluation. RIGHT: Targeted ultrasound was performed at the location of the palpable concern. ??The survey centered at 7 o'clock position 5 cm from the nipple shows multiple groups of cysts, some of them septated, with the palpable area measuring 1.6 x 0.7 x 1.0 cm. ??No abnormal vascularity demonstrated with color Doppler evaluation. Procedure Note Roscoe Rene MD - 05/31/2024 US BREAST LIMITED RIGHT US BREAST LIMITED LEFT CLINICAL: Left: This is a 6 month follow-up of enlarging biopsy-proven 2 adjacentfibroadenomas located at 2 o'clock position retroareolar. The biopsy wasperformed at the [facility] on May 13, 2021. Right: Today, the patient also complained of palpable concern at 7 o'clockposition. COMPARISON: Bilateral mammogram on December 02, 2023. Left breastultrasound on December 02, 2023, May 13, 2021, March 26, 2021 and 2020. FINDINGS: LEFT: Targeted ultrasound was performed at the location of previouslydescribed sonographic finding. Redemonstration of the 2 adjacent solidmasses at 2 o'clock position retroareolar. The larger mass measures 2.1 x1.2 x 1.9 cm and now contains internal cysts; prior measurements were 2.0x 1.1 x 2.0 cm in November 2023, and 1.7 x 0.8 x 1.3 cm in March 2021.The smaller mass measures 1.8 x 0.8 x 1.7 cm, with prior measurements of1.8 x 0.8 x 1.7 cm in November 2023 and 1.3 x 0.6 x 1.3 cm in March2021. No abnormal vascularity demonstrated with color Dopplerevaluation. RIGHT: Targeted ultrasound was performed at the location of the palpableconcern. The survey centered at 7 o'clock position 5 cm from the nippleshows multiple groups of cysts, some of them septated, with the palpablearea measuring 1.6 x 0.7 x 1.0 cm. No abnormal vascularity demonstratedwith color Doppler evaluation. IMPRESSION: LEFT: Biopsy-proven fibroadenomas (2 adjacent solid masses) at 2 o'clockposition retroareolar, stable in size from prior ultrasound from November2023. Benign, no evidence of malignancy. Clinical follow-up isrecommended. RIGHT: Palpable concern centered at 7 o'clock position 5 cm from thenipple correlates with an area of multiple groups of cysts, some of themseptated. Benign, no evidence of malignancy. Clinical follow-up isrecommended. Given patient's strong family history of breast cancer, patient isscheduled to return to routine screening mammogram in November 2024. Findings and recommendations communicated to the patient via ultrasoundtechnologist. BI-RADS CATEGORY: 2 - BENIGN RECOMMENDATION: Return to annual mammography. -------- FINAL REPORT -------- Dictated By: Roscoe Rene Dictated Date: 05/31/2024 14:16 ET Assigned Physician: Roscoe Rene Reviewed and Electronically Signed By: Roscoe Rene Signed Date: 05/31/2024 15:39 ET Workstation ID: [id number] Transcribed By: Self Edit Transcribed Date: 05/31/2024 14:56 ET us Dorys Tan MD IMG US PROCEDURES Final Result documented in this encounter Visit Diagnoses Diagnosis Breast lump Lump or mass in breast Encounter for screening mammogram for breast cancer documented in this encounter Care Teams Business Intelligence Engineer Relationship Specialty Start Date End Date Dorys Tan MD [address] [place] [id number] PCP - General Internal Medicine 12/10/21 documented as of this encounter
--- OUTSIDE RECORDS SUMMARY | 2024-06-06 11:35 | XMS_ITS | Encounter Summary ---
Author Organization [facility] Address [address] [place] [address] Care Team Providers Care Cadet Deck Name Role Phone Dorys Tan MD Primary Care Prov ider Reason for Referral * Imaging (Routine) - Closed Specialty Diagnoses / Procedures Referred By Phil david Referred To Contact Radiology Diagnoses Breast lump Procedures US Breast Limited Left US Breast Limited Dorys Garcia MD [address] [place] [address] Phone: tel: fax: [facility] Referral ID Status Reason Start Date Expiration Date Visits Re quested Visits Authorized [id number] Closed 12/24/2023 12/23/2024 1 1 Reason for Visit * Imaging (Routine) - Closed Specialty Diagnoses / Procedures Referred By Phil david Referred To Contact Radiology Diagnoses Breast lump Procedures US Breast Limited Left US Breast Limited Dorys Garcia MD [address] [place] [address] Phone: tel: fax: [facility] Referral ID Status Reason Start Date Expiration Date Visits Re quested Visits Authorized [id number] Closed 12/24/2023 12/23/2024 1 1 Encounter Details Date Type Department Care Team (Latest Contact Info) Description 05/31/2024 1:38 PM EDT - 05/31/2024 11:59 PM EDT Hospital Encounter Radiology Department - [address] [address] Breast lump Discharge Disposition: Home or Self [...] Info) Description 07/24/2024 2:30 PM EDT Appointment [facility] Xray [address] [place] [address] 12/01/2024 11:00 AM EDT Appointment Radiology Department - [address] [address] documented as of this encounter Procedures Procedure Name Priority Date/Time Associated Diagnosis Comments US BREAST LIMITED LEFT Routine 05/31/2024 1:53 PM EDT Breast lump documented in this encounter Results * US Breast Limited Left (05/31/2024 1:53 PM EDT) Anatomical Region Laterality Modality Breast Left Ultrasound 05/31/2024 2:16 PM EDT Impressions 05/31/2024 [...] and recommendations communicated to the patient via office technologist. BI-RADS CATEGORY: 2 - BENIGN RECOMMENDATION: Return to annual mammography. -------- FINAL REPORT -------- Dictated By: Roscoe Rene Dictated Date: 05/31/2024 14:16 ET Assigned Physician: Roscoe Rene Reviewed and Electronically Signed By: Roscoe Rene Signed Date: 05/31/2024 15:39 ET Workstation ID: [id number] Transcribed By: Self Edit Transcribed Date: 05/31/2024 14:56 ET Narrative 05/31/2024 3:39 PM EDT US BREAST LIMITED RIGHT US BREAST LIMITED LEFT CLINICAL: Left: This is a 6 month follow-up of enlarging biopsy-proven 2 adjacent fibroadenomas located at 2 o'clock position retroareolar. ??The biopsy was performed at the [facility] on May 13, 2021. Right: Today, [...] position retroareolar. The biopsy wasperformed at the [facility] on May 13, 2021. Right: Today, [...] Signed Date: 05/31/2024 15:39 ET Workstation ID: [id number] Transcribed By: Self Edit Transcribed Date: 05/31/2024 14:56 ET us Dorys Tan MD IMG US PROCEDURES Final Result documented in this encounter Visit Diagnoses Diagnosis Breast lump Lump or mass in breast Encounter for screening mammogram for breast cancer documented in this encounter Care Teams Cadet Deck Relationship Specialty Start Date End Date Dorys Tan MD [address] [place] [phone] PCP - General Internal Medicine 12/10/21 documented as of this encounter
--- OUTSIDE RECORDS SUMMARY | 2024-06-06 11:35 | XMS_ITS | Clinical Summary ---
Author Organization [facility] [address] [place] [address] [place] [address] Phone Care Team Providers Care Sdet Name Role Phone Dorys Tan MD Primary Care Prov ider Allergies Active Allergy Reactions Criticality Noted Date Comments Sulfa (Sulfonamide Antibiotics) Swelling 08/2014 Active Problems Problem Noted Date Diagnosed Date Left breast mass 05/11/2021 Overview (03/02/2024): 05/2021- Breast center Recommendations: * Annual screening mammography. * Biannual clinical breast exam. These will be performed in our office. * Monthly SBE. * Heart healthy diet. * Moderate daily exercise (30 minutes 5x per week). * Limit or omit alcohol from diet.* Annual screening bilateral breast MRI. We discussed the risks/benefits of screening breast MRI. Benefits include potential detection of small breast cancers at an earleir size/stage, improved radiographoic visulaiztion of dense breast patencyhma and/or areas of prior scarring/surgery/biopsy. Risks of screening breast MRI include potential for false positive results, potential need for biopsy, need for IV, contrast reaction, cost. Breast MRI was ordered today. * Genetic consultation / testing. This has been performed previously and was found to be negative. * Medical oncology consultation regarding chemoprophylaxis. Patient declined referral to medical oncology. GERD (gastroesophageal reflux disease) 5 Encounters Date Type Department Care Team Description 05/31/2024 1:59 PM EDT - 05/31/2024 11:59 PM EDT Hospital Encounter Radiology Department - [address] [phone] Breast lump Discharge Disposition: Home or Self Care 05/31/2024 1:38 PM EDT - 05/31/2024 11:59 PM EDT Hospital Encounter Radiology Department [address] [phone] Breast lump Discharge Disposition: Home or Self Care from Last 3 Months Immunizations Name Administration Dates Next Due DTaP (Infanrix) 6wks to less than 7yo ,02/25/1994,07/03/1993,02/09 [id number] (Pentacel) 2mo to less than 5yo 02/09/1993 HPV, Quadrivalent 05/14/2010,01/09/2010,10/31/19 10 Hepatitis B Pediatric (Enger ix B; Recombivax HB) to less than 20 yo 04/24/1997 Influenza trivalent, 0.5mL, preservative free (Fluarix; FluLaval; Fluzone) ages 6mo and older (Afluria) 3 years and older 12/09/2014,11/28/2013 Influenza, Unspecified 01/05/2014 Influenza, live, intranasal, trivalent (FluMist) 2yo to less than 50yo 12/11/2010,10/30/2009 MMR, measles mumps and rubel la Live (Priorix; M-M-R II) 12mo and older 04/24/1997,02/26/1994 Meningococcal MCV4P 01/09/2010 OPV 04/24/1997, 4,07/03/1993,02/09 Td Tetanus diptheria (Tdvax) 7yo and older 11/13/2004 Tdap Tetanus diptheria acell ular pertussis (Boostrix; Adacel) 7yo and older 08/30/2009 Varicella live (Varivax) 12m o and older 05/06/1995 Surgical History Surgery Date Site/Laterality Comments WISDOM TOOTH EXTRACTION PROCEDURE: HISTORICAL WISDOM TEETH EXTRACTION BREAST BIOPSY 05/2021 Left PROCEDURE: BX BREAST; PERC NEEDLE CORE W/IMAG GUID; COMMENT: fibroadenoma-benign Medical History Medical History Date Comments Migraines DX:Migraines; CO MMENT: with aura Left breast mass DX:Left breast mass; COMMENT: seen at Breast center See Problem list for recommendations IBS (irritable bowel syndrome) D X:IBS (irritable bowel syndrome) Change in stool habits DX:Change in stool habits Abdominal cramping DX:Abdominal cramping Diarrhea DX:Diarrhea Family History Medical History Relation Name Comments No Known Problems Father Other: TIA Maternal Grandmother Breast cancer Mother colon? breast? metastatic Thyroid disease Mother colon? breast? Breast cancer Mother's side 1 Great aunt Breast cancer Mother's side 2 Great aunt Other: bone cancer Mother's side 3 great grandmother Testicular cancer Mother's side 4 great g randfather Heart attack Paternal Grandfather Stomach cancer Paternal Grandmother Breast cancer Sister 1 [id number] No Known Problems Sister 2 No Known Problems Sister 3 No Known Problems Sister 4 Ovarian cancer Neg Hx Uterine cancer Neg Hx Relation Name Status Comments Father Alive Maternal Grandmother Alive Mother colon? breast? Mother's side 1 Alive Mother's side 2 Alive Mother's side 3 Mother's side 4 Paternal Grandfather Paternal Grandmother Sister 1 dx'[id number] Sister 2 Alive Sister 3 Alive Sister 4 Social History Tobacco Use Types Packs/Day Years [...] on file Sexual Orientation Not on file Obstetrics History Last Filed Vital Signs Vital Sign Reading Time Taken Comments Blood Pressure 104/67 11/29/2023 12:36 PM EDT Pulse 75 11/29/2023 12:36 PM EDT Temperature - - Respiratory Rate - - Oxygen Saturation - - Inhaled Oxygen Concentration - - Weight 66.3 kg (146 lb 3.2 oz) 11/29/2023 12:36 PM EDT Height 167.6 cm (5' 6 ) 11/29/2023 12:36 PM EDT Body Mass Index 23.6 11/29/2023 12:36 PM EDT Plan of Treatment Upcoming Encounters Date Type Department Care Team (Late st Contact Info) Description 07/24/2024 2:30 PM EDT Appointment [facility] Xray [address] [place] [address] 12/01/2024 11:00 AM EDT Appointment Radiology Department [address] [place] [phone] Health Maintenance Due Date Last Done Comments Hepatitis B Vaccines (2 of 3 - 3-dose series) 05/22/1997 04/24/1997 DTaP,Tdap,and Td Vaccines (7 - Td or Tdap) 08/31/2019 08/30/2009, 11/13/2004, 04/24/1997, Additional history exists Social Influencers of Health Screening 02/13/2022 COVID-19 Vaccine ( season) 2023 Influenza Vaccine (#1) 2023 5, 01/05/2014, 11/28/2013, Additional history exists Depression Screening 11/28/2024 11/29/2023 Cholesterol Screening (Lipid Panel) 04/15/2027 04/15/2022 Cervical Cancer Screening: HPV 03/10/2028 03/10/2023 HIB Vaccines Aged Out 02/09/1993 No longer eligi ble based on patient's age to complete this topic Varicella Vaccines Aged Out 05/06/1995 No longer eligible based on patient's age to complete this topic IPV Vaccines Completed 04/24/1997, 02/05, 07/03/1993, Additional history exists MMR Vaccines Completed 04/24/1997, 02/26/1994 Meningococcal ACWY Vaccine Completed 01/09/2010 HPV Vaccines Completed 05/14/2010, 07/2009, 10/30/2009 HIV Screening Completed 09/22/2020 Hepatitis C Screening Completed 09/22/2020 Hepatitis A Vaccines Aged Out No long er eligible based on patient's age to complete this topic Meningococcal B Vacine Aged Out No lo nger eligible based on patient's age to complete this topic Pneumococcal Vaccine: Pediatrics (0 to 5 Years) and At-Risk Patients (6 to 64 Years) Aged Out No longer eligible based on patient's age to complete this topic RSV Immunization Patients Under 20 months Aged Out No longer eligible based on patient's age to complete this topic Procedures Procedure Name Priority Date/Time Associated Diagnosis Comments US BREAST LIMITED RIGHT Routine 05/31/2024 2:05 PM EDT Breast lump US BREAST LIMITED LEFT Routine 05/31/2024 1:53 PM EDT Breast lump DEPRESSION SCREENING Routine 11/29/2023 HPV Routine 03/10/2023 LIPID PANEL Routine 04/15/2022 HEPATITIS C SCREENING Routine 09/22/2020 HIV SCREENING Routine 09/22/2020 from Last 3 Months or Most Recently Relevant to Health Maintenance Results * US Breast Limited Right (05/31/2024 [...] and recommendations communicated to the patient via research technologist. BI-RADS CATEGORY: 2 - BENIGN RECOMMENDATION: Return to annual mammography. -------- FINAL REPORT -------- Dictated By: Roscoe Rene Dictated Date: 05/31/2024 14:16 ET Assigned Physician: Roscoe Rene Reviewed and Electronically Signed By: Roscoe Rene Signed Date: 05/31/2024 15:39 ET Workstation ID: [id number] Transcribed By: Self Edit Transcribed Date: 05/31/2024 14:56 ET Narrative 05/31/2024 3:39 PM EDT US BREAST LIMITED RIGHT US BREAST LIMITED LEFT CLINICAL: Left: This is a 6 month follow-up of enlarging biopsy-proven 2 adjacent fibroadenomas located at 2 o'clock position retroareolar. ??The biopsy was performed at the [facility] on May 13, 2021. Right: Today, the [...] position retroareolar. The biopsy wasperformed at the [facility] on May 13, 2021. Right: Today, the [...] Signed Date: 05/31/2024 15:39 ET Workstation ID: [id number] Transcribed By: Self Edit Transcribed Date: 05/31/2024 14:56 ET us Dorys Tan MD IMG US PROCEDURES Final Result * US Breast Limited Left (05/31/2024 1:53 [...] and recommendations communicated to the patient via research technologist. BI-RADS CATEGORY: 2 - BENIGN RECOMMENDATION: Return to annual mammography. -------- FINAL REPORT -------- Dictated By: Roscoe Rene Dictated Date: 05/31/2024 14:16 ET Assigned Physician: Roscoe Rene Reviewed and Electronically Signed By: Roscoe Rene Signed Date: 05/31/2024 15:39 ET Workstation ID: [id number] Transcribed By: Self Edit Transcribed Date: 05/31/2024 14:56 ET Narrative 05/31/2024 3:39 PM EDT US BREAST LIMITED RIGHT US BREAST LIMITED LEFT CLINICAL: Left: This is a 6 month follow-up of enlarging biopsy-proven 2 adjacent fibroadenomas located at 2 o'clock position retroareolar. ??The biopsy was performed at the [facility] on May 13, 2021. Right: Today, the [...] position retroareolar. The biopsy wasperformed at the [facility] on May 13, 2021. Right: Today, the [...] Signed Date: 05/31/2024 15:39 ET Workstation ID: [id number] Transcribed By: Self Edit Transcribed Date: 05/31/2024 14:56 ET us Dorys Tan MD [facility] US PROCEDURES Final Result * Depression Screening (11/29/2023) Depression Screening abstracted us Historical Provider HEALTH MAINTENANCE Final Result * Cervical Cancer Screening: HPV (03/10/2023) [facility] Cervical Cancer Screening: HPV negative, abstracted [facility] Provider HEALTH MAINTENANCE Final Result * Lipid panel (04/15/2022) [facility] LDL/HDL Ratio 3 0 - 4 Triglycerides 121 0 - 150 mg/dL Cholesterol 173 0 - 200 mg/dL HDL 61 >=40 mg/dL LDL Cholesterol 88 0 - 100 mg/dL Blood Venous blood specimen / Unknown [facility] Provider LAB BLOOD ORDERABLES Carly l Result * HIV Screening (09/22/2020) [facility] HIV Screening abstracted [facility] Provider HEALTH MAINTENANCE Final Result * Hepatitis C Screening (09/22/2020) [facility] Hepatitis C Screening abstracted [facility] Provider HEALTH MAINTENANCE Final Result from Last 3 Months or Most Recently Relevant to Health Maintenance Insurance [facility] Care Teams Sdet Relationship Specialty Start Date End Date Dorys Tan MD [address] [place] [address] [phone] PCP - General Internal Medicine 10/6/22
== END 2024-06-06 10:53 | disposition home or self-care (01) ==
LOC: HO.HCS 10:02
PROVIDERS: PCP Internal Medicine; Visit Provider Internal Medicine Cardiovascular Disease
DX: R55 Syncope and collapse (principal)
CPT/HCPCS: 93010; 99204

== ENCOUNTER 2024-06-06 10:02 | Outpatient (REF) | payer OTHER, SELFPAY ==
--- OUTSIDE RECORDS SUMMARY | 2024-06-06 13:31 | XMS_ITS | Clinical Summary ---
Author Organization [facility] [address] [place] [address] [place] [address] Phone Care Team Providers Care Public Housing Interviewer Name Role Phone Dorys Tan MD Primary [...] PM EDT Hospital Encounter Radiology Department - [address] [phone] Breast lump Discharge Disposition: Home or Self Care 05/31/2024 1:38 PM EDT - 05/31/2024 11:59 PM EDT Hospital Encounter Radiology Department [address] [phone] Breast lump Discharge Disposition: Home or Self Care from Last 3 Months Immunizations Name Administration Dates Next Due DTaP (Infanrix) 6wks to less than 7yo ,02/25/1994,07/03/1993,02/09 [id number] (Pentacel) 2mo to less than 5yo 02/09/1993 [...] cancer Paternal Grandmother Breast cancer Sister 1 dx'p35-uvta No Known Problems Sister 2 No Known Problems Sister 3 No Known Problems Sister 4 Ovarian cancer Neg Hx Uterine cancer Neg Hx Relation Name Status Comments Father Alive Maternal Grandmother Alive Mother colon? breast? Mother's side 1 Alive Mother's side 2 Alive Mother's side 3 Mother's side 4 Paternal Grandfather Paternal Grandmother Sister 1 dx'a53-jild Sister 2 Alive Sister 3 Alive Sister [...] Info) Description 07/24/2024 2:30 PM EDT Appointment [facility] Xray [address] [place] [address] 12/01/2024 11:00 AM EDT Appointment Radiology Department [address] [place] [phone] Health Maintenance Due Date Last Done Comments [...] and recommendations communicated to the patient via operating room technologist. BI-RADS CATEGORY: 2 - BENIGN RECOMMENDATION: Return to annual mammography. -------- FINAL REPORT -------- Dictated By: Roscoe Rene Dictated Date: 05/31/2024 14:16 ET Assigned Physician: Roscoe Rene Reviewed and Electronically Signed By: Roscoe Rene Signed Date: 05/31/2024 15:39 ET Workstation ID: [id number] Transcribed By: Self Edit Transcribed Date: 05/31/2024 14:56 ET Narrative 05/31/2024 3:39 PM EDT US BREAST LIMITED RIGHT US BREAST LIMITED LEFT CLINICAL: Left: This is a 6 month follow-up of enlarging biopsy-proven 2 adjacent fibroadenomas located at 2 o'clock position retroareolar. ??The biopsy was performed at the [facility] on May 13, 2021. Right: Today, [...] position retroareolar. The biopsy wasperformed at the [facility] on May 13, 2021. Right: Today, [...] Signed Date: 05/31/2024 15:39 ET Workstation ID: [id number] Transcribed By: Self Edit Transcribed Date: 05/31/2024 [...] and recommendations communicated to the patient via operating room technologist. BI-RADS CATEGORY: 2 - BENIGN RECOMMENDATION: Return to annual mammography. -------- FINAL REPORT -------- Dictated By: Roscoe Rene Dictated Date: 05/31/2024 14:16 ET Assigned Physician: Roscoe Rene Reviewed and Electronically Signed By: Roscoe Rene Signed Date: 05/31/2024 15:39 ET Workstation ID: [id number] Transcribed By: Self Edit Transcribed Date: 05/31/2024 14:56 ET Narrative 05/31/2024 3:39 PM EDT US BREAST LIMITED RIGHT US BREAST LIMITED LEFT CLINICAL: Left: This is a 6 month follow-up of enlarging biopsy-proven 2 adjacent fibroadenomas located at 2 o'clock position retroareolar. ??The biopsy was performed at the [facility] on May 13, 2021. Right: Today, [...] position retroareolar. The biopsy wasperformed at the [facility] on May 13, 2021. Right: Today, [...] Signed Date: 05/31/2024 15:39 ET Workstation ID: [id number] Transcribed By: Self Edit Transcribed Date: 05/31/2024 14:56 ET us Dorys Tan MD [facility] US PROCEDURES Final Result * Depression Screening (11/29/2023) Depression Screening abstracted us Historical Provider HEALTH MAINTENANCE Final Result * Cervical Cancer Screening: HPV (03/10/2023) [facility] Cervical Cancer Screening: HPV negative, abstracted [facility] Provider HEALTH MAINTENANCE Final Result * Lipid panel (04/15/2022) [facility] LDL/HDL Ratio 3 0 - 4 Triglycerides 121 0 - 150 mg/dL Cholesterol 173 0 - 200 mg/dL HDL 61 >=40 mg/dL LDL Cholesterol 88 0 - 100 mg/dL Blood Venous blood specimen / Unknown [facility] Provider LAB BLOOD ORDERABLES Carly l Result * HIV Screening (09/22/2020) [facility] HIV Screening abstracted [facility] Provider HEALTH MAINTENANCE Final Result * Hepatitis C Screening (09/22/2020) [facility] Hepatitis C Screening abstracted [facility] Provider HEALTH MAINTENANCE Final Result from Last 3 Months or Most Recently Relevant to Health Maintenance Insurance [facility] Care Teams Public Housing Interviewer Relationship Specialty Start Date End Date Dorys Tan MD [address] [place] [address] [phone] PCP - General Internal Medicine 10/6/22
--- OUTSIDE RECORDS SUMMARY | 2024-06-06 13:31 | XMS_ITS | Encounter Summary ---
Author Organization [facility] Address [address] [place] [address] Care Team Providers Care Tenant Relations Coordinator Name Role Phone Dorys Tan MD Primary Care Prov ider Reason for Referral * Imaging (Routine) - Closed Specialty Diagnoses / Procedures Referred By Phil david Referred To Contact Radiology Diagnoses Breast lump Procedures US Breast Limited Left US Breast Limited Dorys Garcia MD [address] [place] [phone] Phone: tel: fax: [facility] Referral ID Status Reason Start Date Expiration Date Visits Re quested Visits Authorized [id number] Closed 12/24/2023 12/23/2024 1 1 Reason for Visit * Imaging (Routine) - Closed Specialty Diagnoses / Procedures Referred By Phil david Referred To Contact Radiology Diagnoses Breast lump Procedures US Breast Limited Left US Breast Limited Dorys Garcia MD [address] [place] [phone] Phone: tel: fax: [facility] Referral ID Status Reason Start Date Expiration Date Visits Re quested Visits Authorized [id number] Closed 12/24/2023 12/23/2024 1 1 Encounter Details Date Type Department Care Team (Latest Contact Info) Description 05/31/2024 1:38 PM EDT - 05/31/2024 11:59 PM EDT Hospital Encounter Radiology Department - [address] [phone] Breast lump Discharge Disposition: Home or Self [...] Info) Description 07/24/2024 2:30 PM EDT Appointment [facility] Xray [address] [place] [address] 12/01/2024 11:00 AM EDT Appointment Radiology Department - [address] [phone] documented as of this encounter Procedures Procedure [...] Signed Date: 05/31/2024 15:39 ET Workstation ID: [id number] Transcribed By: Self Edit Transcribed Date: 05/31/2024 14:56 ET Narrative 05/31/2024 3:39 PM EDT US BREAST LIMITED RIGHT US BREAST LIMITED LEFT CLINICAL: Left: This is a 6 month follow-up of enlarging biopsy-proven 2 adjacent fibroadenomas located at 2 o'clock position retroareolar. ??The biopsy was performed at the [facility] on May 13, 2021. Right: [...] position retroareolar. The biopsy wasperformed at the [facility] on May 13, 2021. Right: [...] Signed Date: 05/31/2024 15:39 ET Workstation ID: [id number] Transcribed By: Self Edit Transcribed Date: 05/31/2024 14:56 ET us Dorys Tan MD IMG US PROCEDURES Final Result documented in this encounter Visit Diagnoses Diagnosis Breast lump Lump or mass in breast Encounter for screening mammogram for breast cancer documented in this encounter Care Teams Tenant Relations Coordinator Relationship Specialty Start Date End Date Dorys Tan MD [address] [place] [phone] PCP - General Internal Medicine 12/10/21 documented as of this encounter
--- OUTSIDE RECORDS SUMMARY | 2024-06-06 13:31 | XMS_ITS | Encounter Summary ---
Author Organization [facility] Address [address] [place] [address] Care Team Providers Care Maple Products Supervisor Name Role Phone Dorys Tan MD Primary Care Prov ider Reason for Referral * Imaging (Routine) - Closed Specialty Diagnoses / Procedures Referred By Phil david Referred To Contact Radiology Diagnoses Breast lump Procedures US Breast Limited Right Dorys Tan MD [address] [place] [address] Phone: tel: fax: [address] Phone: tel: Referral ID Status Reason Start Date Expiration Date Visits Re quested Visits Authorized [id number] Closed 05/31/2024 05/31/2025 1 1 Reason for Visit * Imaging (Routine) - Closed Specialty Diagnoses / Procedures Referred By Phil david Referred To Contact Radiology Diagnoses Breast lump Procedures US Breast Limited Right Dorys Tan MD [address] [place] [address] Phone: tel: fax: [address] Phone: tel: Referral ID Status Reason Start Date Expiration Date Visits Re quested Visits Authorized [id number] Closed 05/31/2024 05/31/2025 1 1 Encounter Details Date Type Department Care Team (Latest Contact Info) Description 05/31/2024 1:59 PM EDT - 05/31/2024 11:59 PM EDT Hospital Encounter Radiology Department - [address] [phone] Breast lump Discharge Disposition: Home or Self [...] Info) Description 07/24/2024 2:30 PM EDT Appointment [address] [address] 12/01/2024 11:00 AM EDT Appointment Radiology Department - [address] [phone] documented as of this encounter Procedures Procedure [...] and recommendations communicated to the patient via manufacturing technologist. BI-RADS CATEGORY: 2 - BENIGN RECOMMENDATION: Return to annual mammography. -------- FINAL REPORT -------- Dictated By: Roscoe Rene Dictated Date: 05/31/2024 14:16 ET Assigned Physician: Roscoe Rene Reviewed and Electronically Signed By: Roscoe Rene Signed Date: 05/31/2024 15:39 ET Workstation ID: [id number] Transcribed By: Self Edit Transcribed Date: 05/31/2024 [...] Signed Date: 05/31/2024 15:39 ET Workstation ID: [id number] Transcribed By: Self Edit Transcribed Date: 05/31/2024 14:56 ET us Dorys Tan MD IMG US PROCEDURES Final Result documented in this encounter Visit Diagnoses Diagnosis Breast lump Lump or mass in breast Encounter for screening mammogram for breast cancer documented in this encounter Care Teams [employer] Supervisor Relationship Specialty Start Date End Date Dorys Tan MD [address] [place] [phone] PCP - General Internal Medicine 12/10/21 documented as of this encounter
[2024-06-10 07:49] LABS: Metanephrine, Free 40 pg/mL (<=57); Normetanephrines, Free 58 pg/mL (<=148); Total Metanephrine, Free 98 pg/mL (<=205)
== END 2024-06-06 10:03 | disposition home or self-care (01) ==
LOC: HO.LAB 10:02
PROVIDERS: PCP Internal Medicine; Visit Provider Internal Medicine Cardiovascular Disease
DX: R55 Syncope and collapse (principal)
CPT/HCPCS: 36415; 83835; 93005

== ENCOUNTER → 2024-06-27 08:04 | Outpatient (REF) | payer OTHER, SELFPAY ==
--- NOTE | 2024-06-27 08:07 | CA_ITS ---
Transthoracic Echocardiogram Patient (Last, First, Middle): Keily Gallo L Gender: Female Date of : 1990 Age: 33 Procedure Date: 06/27/2024 Procedure Type: Transthoracic Echocardiogram Location: OP Height: 165.1 cm Weight: 60.78 kg BSA: 1.67 m2 Heart Rate: 72 bpm BP: 118 / 72 mmHg Overseer [employer] Kitchen: SANKET Referring MD: Chris Mills MD Symptoms: R55 - Syncope and collapse Study Quality: Adequate ECG Rhythm: Sinus Conclusions: - The left ventricular systolic function is normal. The visually estimated ejection fraction is between 60-65%. - No obvious valvular pathology seen on this study. Findings Left Ventricle Normal left ventricular cavity size. There is normal left ventricular wall thickness. The left ventricular systolic function is normal. The visually estimated ejection fraction is between 60-65%. There is no evidence of regional wall motion abnormalities. Diastolic function is normal for age. Right Ventricle Normal right ventricular cavity size and systolic function. Atria Both atria are normal in size. Aortic Valve There is a normal trileaflet aortic valve. There is no aortic valve stenosis. There is no aortic valve regurgitation. Mitral Valve The mitral valve appears normal. There is no mitral valve regurgitation. There is no mitral valve stenosis. Pulmonic Valve The pulmonic valve is likely normal. Tricuspid Valve There is trace tricuspid valve regurgitation. There is no evidence of pulmonary hypertension. Great Vessels The aorta was not well visualized. The sinuses of valsalva is normal in size. Venous The inferior vena cava is normal in size and collapses greater than 50% with inspiration. Pericardium/Pleural There is no evidence of pericardial effusion. Prior Study Comparison No prior study available for comparison. Recommendations, Care & Conclusions No obvious valvular pathology seen on this study. Measurements 2D Linear Measurements IVSd: 0.82 0.6-0.9/0.6-1.0 cm LVIDd: 4.79 3.9-5.3/4.2-5.9 cm LVIDd Index: 2.87 2.4-3.2/2.2-3.1 cm/m2 LVIDs: 3.42 2.0-3.6 cm LVPWd: 0.60 0.7-1.1 cm LA Diam: 3.40 2.7-3.8/3.0-4.0 cm LAIDs Index: 2.04 1.5-2.3 cm/m2 LV Mass: 134.76 67-162/88-224 g LV Mass Index: 80.70 43-95/49-115 g/m2 LVOT Diam: 2.20 3.0+(-)1.3 cm 2D Systolic Function EF 4C: 67.60 >55% EF 2C: 65.90 >55% EF BiP: 66.80 >55% Mitral Valve MV Pk E: 0.66 MV PK A: 0.43 MV Decel Time: 176.00 E/A: 1.60 E'Lateral: 21.00 E'Medial: 12.80 E/E' Med: 5.20 E/E' Lat: 3.20 PHT: 52.00 MVA PHT: 4.23 Decel Sharp: 3.77 Aortic Valve AoV Pk Spenser: 1.12 AoV Pk Grad: 5.00 ALEX: 2.73 LVOT LVOT Pk Spenser: 0.83 LVOT Mn Spenser: 0.57 LVOT VTI: 0.18 LVOT Pk Grad: 3.00 LVOT Mn Grad: 1.00 LVOT Diam: 2.20 LVOT Area: 3.80 Diastolic Function MV Pk E: 0.66 MV Pk A: 0.43 E/A: 1.60 E'Medial: 12.80 E/E' Med: 5.20 E' Laterial: 21.00 E/E' Lat: 3.20 Right Ventricle TAPSE (mm): 19.90 TVS' Spenser: 10.00 Tricuspid Valve TR Pk Spenser: 2.07 TR Pk Grad: 17.00 RA Press: 3.00 RVSP: 20.00 Great Vessels Aorta Sinus of Valsalva: 3.20 2.0-3.5 cm Ao Arch: 2.50 Ao Desc: 1.10 Pulmonary Veins Pulm Vein S/D 1.10 Pulmonary Valve PV Pk Spenser: 0.81 Peak PV Grad: 3.00 Updated in Other Vendor System with Status of Final Marvin Daigle MD electronically signed on 06/28/2024 11:47:59 AM with status of Final
--- OUTSIDE RECORDS SUMMARY | 2024-06-27 08:13 | XMS_ITS | Clinical Summary ---
Author Organization [facility] [address] [place] [address] [place] [address] Phone Care Team Providers Care Electrophysiology Technician Name Role Phone Dorys Tan MD Primary [...] PM EDT Hospital Encounter Radiology Department - [address] [phone] Breast lump Discharge Disposition: Home or Self Care 05/31/2024 1:38 PM EDT - 05/31/2024 11:59 PM EDT Hospital Encounter Radiology Department [address] [phone] Breast lump Discharge Disposition: Home or Self Care from Last 3 Months Immunizations Name Administration Dates Next Due DTaP (Infanrix) 6wks to less than 7yo ,02/25/1994,07/03/1993,02/09 [id number] (Pentacel) 2mo to less than 5yo 02/09/1993 [...] cancer Paternal Grandmother Breast cancer Sister 1 dx'[id number] No Known Problems Sister 2 No Known Problems Sister 3 No Known Problems Sister 4 Ovarian cancer Neg Hx Uterine cancer Neg Hx Relation Name Status Comments Father Alive Maternal Grandmother Alive Mother colon? breast? Mother's side 1 Alive Mother's side 2 Alive Mother's side 3 Mother's side 4 Paternal Grandfather Paternal Grandmother Sister 1 dx'n33-neyu Sister 2 Alive Sister 3 Alive Sister [...] Info) Description 07/24/2024 2:30 PM EDT Appointment [facility] Xray [address] [place] [address] 12/01/2024 11:00 AM EDT Appointment Radiology Department [address] [place] [phone] Health Maintenance Due Date Last Done Comments Hepatitis B Vaccines (2 of 3 - 3-dose series) 05/22/1997 04/24/1997 DTaP,Tdap,and Td Vaccines (7 - Td or Tdap) 08/31/2019 08/30/2009, 11/13/2004, 04/24/1997, Additional history exists Social Influencers of Health Screening 02/13/2022 COVID-19 Vaccine ( season) 2023 Influenza Vaccine (Season Ended) 2024 12/09/2014, 01/05/2014, 11/28/2013, Additional history exists Depression Screening [...] age to complete this topic Meningococcal B Vaccine Aged Out No l onger eligible based on patient's age to complete [...] and recommendations communicated to the patient via arrt technologist. BI-RADS CATEGORY: 2 - BENIGN RECOMMENDATION: Return to annual mammography. -------- FINAL REPORT -------- Dictated By: Roscoe Rene Dictated Date: 05/31/2024 14:16 ET Assigned Physician: Roscoe Rene Reviewed and Electronically Signed By: Roscoe Rene Signed Date: 05/31/2024 15:39 ET Workstation ID: [id number] Transcribed By: Self Edit Transcribed Date: 05/31/2024 14:56 ET Narrative 05/31/2024 3:39 PM EDT US BREAST LIMITED RIGHT US BREAST LIMITED LEFT CLINICAL: Left: This is a 6 month follow-up of enlarging biopsy-proven 2 adjacent fibroadenomas located at 2 o'clock position retroareolar. ??The biopsy was performed at the [facility] on May 13, 2021. Right: Today, [...] position retroareolar. The biopsy wasperformed at the [facility] on May 13, 2021. Right: Today, [...] Signed Date: 05/31/2024 15:39 ET Workstation ID: [id number] Transcribed By: Self Edit Transcribed Date: 05/31/2024 [...] and recommendations communicated to the patient via arrt technologist. BI-RADS CATEGORY: 2 - BENIGN RECOMMENDATION: Return to annual mammography. -------- FINAL REPORT -------- Dictated By: Roscoe Rene Dictated Date: 05/31/2024 14:16 ET Assigned Physician: Roscoe Rene Reviewed and Electronically Signed By: Roscoe Rene Signed Date: 05/31/2024 15:39 ET Workstation ID: [id number] Transcribed By: Self Edit Transcribed Date: 05/31/2024 14:56 ET Narrative 05/31/2024 3:39 PM EDT US BREAST LIMITED RIGHT US BREAST LIMITED LEFT CLINICAL: Left: This is a 6 month follow-up of enlarging biopsy-proven 2 adjacent fibroadenomas located at 2 o'clock position retroareolar. ??The biopsy was performed at the [facility] on May 13, 2021. Right: Today, [...] position retroareolar. The biopsy wasperformed at the [facility] on May 13, 2021. Right: Today, [...] Signed Date: 05/31/2024 15:39 ET Workstation ID: [id number] Transcribed By: Self Edit Transcribed Date: 05/31/2024 14:56 ET us Dorys Tan MD [facility] [place] [place] US PROCEDURES Final Result * Depression Screening (11/29/2023) Depression Screening abstracted us Historical Provider HEALTH MAINTENANCE Final Result * Cervical Cancer Screening: HPV (03/10/2023) [facility] Cervical Cancer Screening: HPV negative, abstracted [facility] Provider HEALTH MAINTENANCE Final Result * Lipid panel (04/15/2022) [facility] LDL/HDL Ratio 3 0 - 4 Triglycerides 121 0 - 150 mg/dL Cholesterol 173 0 - 200 mg/dL HDL 61 >=40 mg/dL LDL Cholesterol 88 0 - 100 mg/dL Blood Venous blood specimen / Unknown Result [facility] Provider LAB BLOOD ORDERABLES Carly l Result * HIV Screening (09/22/2020) [facility] HIV Screening abstracted Result [facility] Provider HEALTH MAINTENANCE Final Result * Hepatitis C Screening (09/22/2020) [facility] Hepatitis C Screening abstracted Result [facility] Provider HEALTH MAINTENANCE Final Result from Last 3 Months or Most Recently Relevant to Health Maintenance Insurance [facility] Care Teams Electrophysiology Technician Relationship Specialty Start Date End Date Dorys Tan MD [address] [place] [address] [phone] PCP - General Internal Medicine 12/10/21
== END ==
LOC: HO.CARD 08:04
PROVIDERS: PCP Internal Medicine; Visit Provider Internal Medicine Cardiovascular Disease
DX: R55 Syncope and collapse (principal)
CPT/HCPCS: 93242; 93306

== ENCOUNTER → 2024-06-27 08:07 | Outpatient (BNV) | payer OTHER, SELFPAY | PROVIDERS: PCP Internal Medicine; Visit Provider Internal Medicine | DX: R55 Syncope and collapse (principal) | CPT/HCPCS: 93306 ==

== ENCOUNTER 2024-07-16 09:15 | Outpatient (AMB) | payer OTHER, SELFPAY ==
--- NOTE | 2024-07-16 09:18 | A.OFFPSYCH_ITS ---
Intake Intake Visit Reasons: f/u consultation Steward/Stewardess Economy Class Required: No Allergies Sulfa (Sulfonamide Antibiotics) Allergy (Intermediate, Verified 01/12/24 11:19) Swelling Medication List - Last Reconciled 07/16/24 by Lakisha Bruce APRN dextroamphetamine-amphetamine 5 mg (Adderall) 10 mg (2 x 5 mg) PO BID HPI- Psychiatric Chief Complaint: f/u consultation HPI Narrative: pt reports she is responding well to the adderall 5mg daily; she is able to stay on taks, her attention and focus is good. She reports trouble falling and staying asleep, she feels tired frequently, and has trouble concentrating still; she worries and feels anxious often; she reports that the symptoms are not difficult at all. She reports she has intrusive thoughts of bad things happening mostly worries about her daughter; she feels compelled to warn her daughter and daughter's other caretakers about any dangers they may encounter; she know she does not need to but feels comppelled and cannot stop herself; she feels superstitious that if she doesn't then something bad will happen; she has had more tress due to work pressures and her grandmother was very sick. Pt does not want to take a medication for the anxiety and worry; she is afraid she will feel like a different person and not beable to care for her daughter that way she wants to. We discussed CBT therapy as an option to address the worries. Education done re: SSRIs for PTSd and OCD and nmanaging side effects; she declines for now. Past Psychiatric History: none Subjective Subjective Subjective Medication Compliance: Yes Side effects from medications: No Review of Systems Medical Review of Systems: unchanged Mental Status Exam Mental Status Exam Patient Appearance: Well Grooomed and Appropriate Patient Orientation: Person, Place, Time and Situation Level of Consciousness: Awake, Appropriate and Alert Patient Behavior: Appropriate, Cooperative and Good Eye Contact Mood Description: Cheerful and Anxious Affect Description: Cheerful and Anxious Patient Cognition Impaired: No Ability to Follow Directions: Good Speech Pattern: Clear Memory Description: Intact Hallucinations: None Delusions: Not Present Thought Process: Intact Thought Content: positive for Intact Judgement: Good Assessment and Plan Assessment & Plan (1) ADHD (attention deficit hyperactivity disorder): Status: Acute Qualifiers: Attention deficit-hyperactivity disorder type: combined inattentive- hyperactive Qualified Code(s): F90.2 - Attention-deficit hyperactivity disorder, combined type Code(s): F90.9 - Attention-deficit hyperactivity disorder, unspecified type Plan rule out PTSD and OCD Medications: Refilled dextroamphetamine-amphetamine 5 mg (Adderall) administer doses at least 4-6 hours apart; Partial Fill upon patient request. NO SANDOZ BRAND 10 mg (2 x 5 mg) PO BID 120 tabs 0RF Counseling and coordination of Care Pt. Self Management counseling: Sleep hygiene and Cognitive restructuring Medication management counseling: Effectiveness, Side effects, Dosing range, Duration, Drug interaction and Adherence Diagnosis and Prognosis Counseling: Accuracy of diagnosis, Prognosis over time, Impact of diagnosis on life functions, Impact of family relationship, Problematic behaviors secondary to diagnosis and Adequacy of current interventions Details: I spent 35 minutes reviewing the record, seeing the patient and documenting in the medical record. Counseling provided to the patient/caregiver as outlined below. Addressed patient/caregiver concerns regarding current medication regime including effective adherence. Addressed patient/caregiver concerns regarding diagnosis and prognosis including accuracy of diagnosis, prognosis over time, impact of diagnosis. Addressed patient/caregiver concerns regarding impact of recent stressors. [facility]LY [facility], [facility] Medical History Patient denies medical problems Family History Mother No problems noted. Father No problems noted. 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 Grew up mostaly with grandmother as parents had addiction issues; she and her younger sister went to foster care off and on. She and sister spent 2 yrs in foster care until pt turned 20 and then she took custody of her younger sister. she also has 2 older sister one of whom recently from metastatic breast cancer. Substance History: none Trauma History: yes childhood Coding Level of Care Code Est Pt Level 4 (54328) Diagnoses Attention deficit hyperactivity disorder (ADHD), combined type F90.2 Attention deficit-hyperactivity disorder type: combined inattentive-hype ractive
--- OUTSIDE RECORDS SUMMARY | 2024-07-16 09:23 | XMS_ITS | Clinical Summary ---
Author Organization [facility] [address] [place] [address] [place] [address] Phone Care Team Providers Care Worm Grower Name Role Phone Dorys Tan MD Primary [...] PM EDT Hospital Encounter Radiology Department - [address] [phone] Breast lump Discharge Disposition: Home or Self Care 05/31/2024 1:38 PM EDT - 05/31/2024 11:59 PM EDT Hospital Encounter Radiology Department [address] [phone] Breast lump Discharge Disposition: Home or Self Care from Last 3 Months Immunizations Name Administration Dates Next Due DTaP (Infanrix) 6wks to less than 7yo ,02/25/1994,07/03/1993,02/09 [id number] (Pentacel) 2mo to less than 5yo 02/09/1993 [...] cancer Paternal Grandmother Breast cancer Sister 1 [id number]-[id number] No Known Problems Sister 2 No Known Problems Sister 3 No Known Problems Sister 4 Ovarian cancer Neg Hx Uterine cancer Neg Hx Relation Name Status Comments Father Alive Maternal Grandmother Alive Mother colon? breast? Mother's side 1 Alive Mother's side 2 Alive Mother's side 3 Mother's side 4 Paternal Grandfather Paternal Grandmother Sister 1 dx'i04-gmni Sister 2 Alive Sister 3 Alive Sister [...] Info) Description 07/24/2024 2:30 PM EDT Appointment [facility] Xray [address] [place] [address] 12/01/2024 11:00 AM EDT Appointment Radiology Department [address] [place] [address] Health Maintenance Due Date Last Done Comments [...] and recommendations communicated to the patient via tissue technologist. BI-RADS CATEGORY: 2 - BENIGN RECOMMENDATION: Return to annual mammography. -------- FINAL REPORT -------- Dictated By: Roscoe Rene Dictated Date: 05/31/2024 14:16 ET Assigned Physician: Roscoe Rene Reviewed and Electronically Signed By: Roscoe Rene Signed Date: 05/31/2024 15:39 ET Workstation ID: [id number] Transcribed By: Self Edit Transcribed Date: 05/31/2024 14:56 ET Narrative 05/31/2024 3:39 PM EDT US BREAST LIMITED RIGHT US BREAST LIMITED LEFT CLINICAL: Left: This is a 6 month follow-up of enlarging biopsy-proven 2 adjacent fibroadenomas located at 2 o'clock position retroareolar. ??The biopsy was performed at the [facility] on May 13, 2021. Right: [...] position retroareolar. The biopsy wasperformed at the [facility] on May 13, 2021. Right: [...] Signed Date: 05/31/2024 15:39 ET Workstation ID: [id number] Transcribed By: Self Edit Transcribed Date: 05/31/2024 [...] and recommendations communicated to the patient via tissue technologist. BI-RADS CATEGORY: 2 - BENIGN RECOMMENDATION: Return to annual mammography. -------- FINAL REPORT -------- Dictated By: Roscoe Rene Dictated Date: 05/31/2024 14:16 ET Assigned Physician: Roscoe Rene Reviewed and Electronically Signed By: Roscoe Rene Signed Date: 05/31/2024 15:39 ET Workstation ID: [id number] Transcribed By: Self Edit Transcribed Date: 05/31/2024 14:56 ET Narrative 05/31/2024 3:39 PM EDT US BREAST LIMITED RIGHT US BREAST LIMITED LEFT CLINICAL: Left: This is a 6 month follow-up of enlarging biopsy-proven 2 adjacent fibroadenomas located at 2 o'clock position retroareolar. ??The biopsy was performed at the [facility] on May 13, 2021. Right: [...] position retroareolar. The biopsy wasperformed at the [facility] on May 13, 2021. Right: [...] Signed Date: 05/31/2024 15:39 ET Workstation ID: [id number] Transcribed By: Self Edit Transcribed Date: 05/31/2024 14:56 ET us Dorys Tan MD [facility] [place] PROCEDURES Final Result * Depression Screening (11/29/2023) Depression Screening abstracted us Historical Provider HEALTH MAINTENANCE Final Result * Cervical Cancer Screening: HPV (03/10/2023) [facility] Cervical Cancer Screening: HPV negative, abstracted [facility] Provider HEALTH MAINTENANCE Final Result * Lipid panel (04/15/2022) [facility] LDL/HDL Ratio 3 0 - 4 Triglycerides 121 0 - 150 mg/dL Cholesterol 173 0 - 200 mg/dL HDL 61 >=40 mg/dL LDL Cholesterol 88 0 - 100 mg/dL Blood Venous blood specimen / Unknown Result [facility] Provider LAB BLOOD ORDERABLES Carly l Result * HIV Screening (09/22/2020) [facility] HIV Screening abstracted Result [facility] Provider HEALTH MAINTENANCE Final Result * Hepatitis C Screening (09/22/2020) [facility] Hepatitis C Screening abstracted Result [facility] Provider HEALTH MAINTENANCE Final Result from Last 3 Months or Most Recently Relevant to Health Maintenance Insurance [facility] Care Teams Worm Grower Relationship Specialty Start Date End Date Dorys Tan MD [address] [place] [address] [phone] PCP - General Internal Medicine 12/10/21
== END 2024-07-16 09:41 | disposition home or self-care (01) ==
LOC: HO.HOP 09:15
PROVIDERS: PCP Internal Medicine; Visit Provider Clinical Nurse Specialist Psychiatric/Mental Health
DX: F90.2 Attention-deficit hyperactivity disorder, combined type (principal)
CPT/HCPCS: 99214

== ENCOUNTER 2024-07-26 11:23 | Outpatient (AMB) | payer OTHER, SELFPAY ==
--- NOTE | 2024-07-26 11:26 | A.OFFVIS_ITS ---
Vital Signs 07/26/24 11:28 Height 5 ft 5 in Weight 138 lb BMI 23.0 BP 110/80 Blood Pressure Location Rt brachial Position Sitting Pulse 80 Pulse Source Pulse Oximeter Pulse Oximetry (%) 98 Oxygen Delivery Method Room Air Intake Visit Reasons: Follow Up 3mo Public Finance Specialist Required: No Allergies Sulfa (Sulfonamide Antibiotics) Allergy (Intermediate, Verified 07/26/24 11:26) Swelling HPI Comments Details: Right-handed 3-year-old female presents for follow-up of headache can bring fog. She is accompanied by her friend. Patient reports overall she is having less headaches and brain fog. Now having about 3 headache days per week. Pt reports she did not try the sumatriptan, as she was scared to try a new medication. She is curious about the overlap between possible POTS diagnosis, and migraine and Yakelin-Danlos syndrome. She notes flexibility in her fingers and hands. She always has neck and back tightness. States she is unable to touch the floor with her hands due to back tightness. Since last visit, she has seen Cardiology and underwent transthoracic echocardiogram which was normal. Six day Holter monitor was within normal limits. More recently, she underwent tilt-table test, results of which demonstrated orthostatic hypotension. She was advised by the performing cardiac CUSTOMS VERIFIER to increase her oral sodium intake. However, she is not quite sure how to do this. And she generally does not like taking salt. She does try to drink fluids before and during showers for as she can becoming lightheaded in the shower. She generally does not like to wear socks, but is open to considering wearing compression socks. She had ophthalmology evaluation, could not find an objective finding to explain her perceived visual field defect. They suggested patient use Systane eyedrops, and placed a referral to neuro alliances consultant to Dr. Rhoades in [place]. 01/12/2024, initial HPI: Right-handed 33-yr-old female presents for new pt evaluation of headache and brain fog. Pt reports she has had episodes of brain fog, poor recall, forgetfulness. The brain fog started about a year after having mild case of Covid-19 in Feb 2020. She has always been a prone to forgetfulness. The brain fog does not occur every day. Often feels that she cannot think, has run out of battery by the end of the day. She forgets why she went into a room, has poor time management, is always late, procrastinates- her whole life. She completed highschool- was a good student, but could not do work w/o waiting until the last minute. Started an associate's program- did not finish, ? difficulty focusing. Also reports her left eye became worse over a year period- saw an opht halmologist at [facility], who dx'd dry eye. Pt reports that this has not improved. Her most bothersome symptoms are brain fog, forgetfulness, and back pain. 2022 Brain MRI w/wo- unremarkable Rheumatology work-up- labs and x-rays were normal. Was referred to cardiology- but missed appt. She also endorses constant phonophobia. When she the brain fog- has episodes of retroorbital or temporal mild sharp shooting pains She has a pressure headache about once a week which lasts until she goes to sleep, a/w eyes feel straining, photophobia, more phonophobia, overall tiredness. Bending over exacerbates head pressure and causes runny nose. She always feels off-balance. She has had a couple of syncope- states she knew she was about to pass out. She had stood up to take her dog out in the middle of the night- started sweating, ear ringing, f/b passing out for a brief moment (still felt like she was thinking)- denies interictal tongue biting or loss of spincter control. Denies being ill prior to the syncopal event. She has had other episodes of feeling near syncopal, which resolve with sitting down. She also endorses anemia. 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 PMH and ROS are notable for:? General: anemia, purplish/blue extremities Musculoskeletal disorders or injury: neck and back pain. feeling of hair tied around her left 3rd toe. easily prone to limb falling asleep if limb compressed. Mood d/o: Anxiety History of syncope GI d/o: GERD, diarrhea alternating w/ constipation. Had stool sample for OP- neg. ASSET CARD CLERK: Menses is regular Family planning: none Pertinent denials include: Sleep difficulties. History of concussion/head injury, Respiratory d/o, CV disease, Clotting or hematology d/o, Endocrine d/o, metabolic d/o. History of seizure. Family history of similar s/s [facility] Medical History Patient denies medical problems Family History Mother No problems noted. Father No problems noted. Social History Alcohol intake: current Alcohol intake frequency: holidays/special occasions only Patient Tobacco Use Status: Never used Tobacco Physical Exam Vital Signs: Last Vital Signs Pulse 80 07/26/24 11:28 BP 110/80 07/26/24 11:28 Pulse Ox 98 07/26/24 11:28 Oxygen Delivery Method Room Air 07/26/24 11:28 BMI result Body Mass Index 23.0 Const Orientation/consciousness: patient oriented x3 Resp Effort & Inspection: normal respiratory effort and able to speak in complete sentences Neuro Other: Kyphosis BLE purplish at rest, resolves with brief foot movements, but quickly returns General: patient oriented x3 Cranial nerves: Yes CN's II-XII intact bilaterally Cognition (Neuro): normal cognition Gait exam (Neuro): Normal gait present Motor exam (neuro): 5/5 motor strength present throughout Psych Appearance: grossly normal Mental Status: mental status grossly normal Speech and movement: Normal speech and movement present Affect: normal affect Attitude: cooperative Thought process: Normal thought process present Assessment & Plan Assessment & Plan (1) Migraine without aura: Code(s): G43.009 - Migraine without aura, not intractable, without status migrainosus Category: Medical Qualifiers: Intractability: not intractable Status migrainosus presence: without status migrainosus Qualified Code(s): G43.009 - Migraine without aura, not intractable, without status migrainosus (2) Syncope: Comment: Tilt-table test consistent with orthostatic hypotension Code(s): R55 - Syncope and collapse Category: Medical Qualifiers: Syncope type: unspecified Qualified Code(s): R55 - Syncope and collapse (3) Brain fog: Comment: DDx includes migraine, vestibular migraine, ADHD, vascular d/o. Code(s): R41.89 - Other symptoms and signs involving cognitive functions and awareness Category: Medical (4) Cervicalgia: Code(s): M54.2 - Cervicalgia Category: Medical (5) Kyphosis: Code(s): M40.209 - Unspecified kyphosis, site unspecified Category: Medical Qualifiers: Kyphosis type: unspecified Spinal region: cervicothoracic Qualified Code(s): M40.203 - Unspecified kyphosis, cervicothoracic region (6) Decreased vision of left eye: Code(s): H54.62 - Unqualified visual loss, left eye, normal vision right eye Category: Medical Plan Reviewed interval Cardiology, Ophthalmology, psychiatry notes and workup. Follow-up with cardiology as scheduled. In the meantime, strategies discussed to increase oral sodium intake, including measuring daily sodium content for trying OTC sodium tabs, such as Thermotabs. Continue to take fluids prior to shower. Consider trying to wear compression socks. Consider referral back to PT, once orthostatic hypotension symptoms improved. Follow-up with Ophthalmology as scheduled. Follow-up with psychiatry as scheduled. For overall management: * Optimize good self-care, including but not limited to maintaining a healthy diet, adequate fluid intake, adequate sleep, and engaging in regular physical activity. * Track headaches/brain fog/syncopal s/s, especially after any treatment regimen changes. Migraine BudParticle is one of many headache tracking apps. * Information shared on non-pharmacological interventions which may help to alleviate headache attack burden. For light sensitivity: Patient may benefit from trying blue light filtering glasses, green glasses orlight tx. For sound sensitivity: Patent may benefit from trying noise cancellation ear plugs. For acute headache treatment: It is important to take acute medications at the first sign of headache, however avoid taking acute medication 1 in 2-3 times per week. This occurs, please notify us Again, patient encouraged to trial Sumatriptan 100mg tab, 1/2 - 1 tab (50-100mg) at onset of headache, may repeat in 2 hours. Max of 2 tabs (200mg) per 24 hours. May adjunct with OTC Tylenol 650mg q 4 hours, Ibuprofen 600mg q 6 hours, or Naproxen 440mg q 12 hrs prn. Potential adverse effects of triptans, include but are not limited to nausea, fatigue, chest tightness/tingling (usually passes within a few minutes), medication overuse headaches. Would like to see which of her s/s are triptan responsive. Additionally, patient may benefit from trialing neuromodulation device, such as cephaly or nerivio Previous acute migraine medication trials: none at this time Acute migraine medication contraindications: None at this time For headache prevention medication: Patient did not start Sertraline 25mg qam- may help syncopal/pre-syncopal episodes, dizziness, brain fog. Monitor for now, as patient is hesitant to add additional medications at this point. Previous migraine prevention medication trials: none at this time Migraine prevention medication contraindications: caution w/ anti-hypertensives d/t h/o syncope. Aimovig d/t possible Raynaud's or diminished peripheral circulation. We will follow-up upon review of above and plan for you to follow-up in clinic in 6 months or sooner as needed. Coding Level of Care Code Est Pt Level 4 (28505) Diagnoses Migraine without aura and without status migrainosus, not intractable G43.009 Intractability: not intractable Status migrainosus presence: without status migrainosus Syncope, unspecified syncope type R55 Syncope type: unspecified Brain fog R41.89 Cervicalgia M54.2 Kyphosis of cervicothoracic region, unspecified kyphosis type M40.203 Kyphosis type: unspecified Spinal region: cervicothoracic Decreased vision of left eye H54.62
[2024-07-26 11:28] VITALS: BP 110/80; PULSE 80; O2SAT 98; BMI 23.0
--- OUTSIDE RECORDS SUMMARY | 2024-07-26 12:02 | XMS_ITS | Clinical Summary ---
Author Organization [facility] [address] [facility] Address [address] [place] [phone] Phone Care Team Providers Care Operator Supply Name Role Phone Dorys Tan MD Primary [...] Encounters Date Type Department Care Team Description 07/24/2024 2:19 PM EDT - 07/24/2024 11:59 PM EDT Hospital Encounter [facility] Xray [address] [place] [address] Syncope and collapse Discharge Disposition: Home or Self Care 05/31/2024 1:59 PM EDT - 05/31/2024 11:59 PM EDT Hospital Encounter Radiology Department - [address] [phone] Breast lump Discharge Disposition: Home or Self Care 05/31/2024 1:38 PM EDT - 05/31/2024 11:59 PM EDT Hospital Encounter Radiology Department - [address] [phone] Breast lump Discharge Disposition: Home or Self Care from Last 3 Months Immunizations Name Administration Dates Next Due DTaP (Infanrix) 6wks to less than 7yo ,02/25/1994,07/03/1993,02/09 [id number] (Pentacel) 2mo to less than 5yo 02/09/1993 [...] cancer Paternal Grandmother Breast cancer Sister 1 [id number] No Known Problems Sister 2 No Known Problems Sister 3 No Known Problems Sister 4 Ovarian cancer Neg Hx Uterine cancer Neg Hx Relation Name Status Comments Father Alive Maternal Grandmother Alive Mother colon? breast? Mother's side 1 Alive Mother's side 2 Alive Mother's side 3 Mother's side 4 Paternal Grandfather Paternal Grandmother Sister 1 [id number] Sister 2 Alive Sister 3 Alive Sister [...] Care Team (Late st Contact Info) Description 07/31/2024 9:00 AM EDT Office Visit Adult Medicine East - [address] [phone] Niki Mckeon PA [address] [place], [place] 11/02/2024 10:00 AM EDT Office Visit Obstetrics and Gynecology - [address] [phone] [facility] [place], [place] 12/01/2024 11:00 AM EDT Appointment Radiology Department - [address] [phone] Health Maintenance Due Date Last Done Comments [...] Procedure Name Priority Date/Time Associated Diagnosis Comments TILT TABLE Routine 07/24/2024 2:46 PM EDT Syncope and collapse US BREAST LIMITED RIGHT Routine 05/31/2024 2:05 PM EDT Breast lump US BREAST LIMITED LEFT Routine 05/31/2024 1:53 PM EDT Breast lump DEPRESSION SCREENING Routine 11/29/2023 HPV Routine 03/10/2023 LIPID PANEL Routine 04/15/2022 HEPATITIS C SCREENING Routine 09/22/2020 HIV SCREENING Routine 09/22/2020 from Last 3 Months or Most Recently Relevant to Health Maintenance Results * Tilt table (07/24/2024 2:46 PM EDT) Anatomical Region Laterality Modality Radiographic Brittany ging Narrative 07/24/2024 3:30 PM EDT Pt symptomatic less than 90 sec after taking sl NTG. She became tachycardic and hypotensive. ??She currently drinks abt 100 oz of fluid daily. I have asked her to increase her salt intake. After 500 cc IVNS, BP stable with position changes and no symptoms. Tilt Table The patient was brought to lab in fasting state. Patient lied supine for 5 minutes for equilibrium. Baseline ECG showed normal sinus rhythm. Baseline supine minimum BP: 87/62 mmHg Baseline supine minimum HR: 80 bpm Patient tilted to 70 degrees. Tilt maintained for 20 minutes. Minimum BP during tilt: 92/78 mmHg Maximum BP during tilt: 116/82 mmHg Minimum heart rate during tilt: 87 bpm Maximum heart rate during tilt: 115 bpm Rhythm during tilt: normal sinus rhythm There was a clear orthostatic response not noted. Patient experienced an exaggerated HR increase with tilt. No symptoms reported. Nitroglycerin was given during the test. Minimum BP under nitroglycerin: 86/58 Maximum BP under nitroglycerin: 116/82 Minimum HR under nitroglycerin: 92 Maximum HR under nitroglycerin: 121 Rhythm after nitroglycerin administration was sinus tachycardia. There was a clear orthostatic response not noted. Patient experienced an exaggerated HR increase with nitroglycerin. Symptoms seen after the nitroglycerin dose include: flushed, foggy and palpitations. Premonitory symptoms were reproduced. Syncope/presyncope symptoms were not reproduced. A transient increase in HR was seen. brief palpitations when the initially raised with increase in HR from 80's to 115. HR returned to normal within 2 min with sx resolution Conclusion: Abnormal tilt test with findings consistant with orthostatic hypotension. Chris Mills MD [facility] PROCEDURES F inal Result * US Breast Limited Right (05/31/2024 2:05 [...] Signed Date: 05/31/2024 15:39 ET Workstation ID: [id number] Transcribed By: Self Edit Transcribed Date: 05/31/2024 14:56 ET Narrative 05/31/2024 3:39 PM EDT US BREAST LIMITED RIGHT US BREAST LIMITED LEFT CLINICAL: Left: This is a 6 month follow-up of enlarging biopsy-proven 2 adjacent fibroadenomas located at 2 o'clock position retroareolar. ??The biopsy was performed at the [facility] on May 13, 2021. Right: [...] position retroareolar. The biopsy wasperformed at the [facility] on May 13, 2021. Right: [...] Signed Date: 05/31/2024 15:39 ET Workstation ID: [id number] Transcribed By: Self Edit Transcribed Date: 05/31/2024 [...] Signed Date: 05/31/2024 15:39 ET Workstation ID: [id number] Transcribed By: Self Edit Transcribed Date: 05/31/2024 14:56 ET Narrative 05/31/2024 3:39 PM EDT US BREAST LIMITED RIGHT US BREAST LIMITED LEFT CLINICAL: Left: This is a 6 month follow-up of enlarging biopsy-proven 2 adjacent fibroadenomas located at 2 o'clock position retroareolar. ??The biopsy was performed at the [facility] on May 13, 2021. Right: [...] position retroareolar. The biopsy wasperformed at the [facility] on May 13, 2021. Right: [...] Signed Date: 05/31/2024 15:39 ET Workstation ID: [id number] Transcribed By: Self Edit Transcribed Date: 05/31/2024 14:56 ET Dorys Tan MD IM US PROCEDURES Final Result * Depression Screening (11/29/2023) [facility] Depression Screening abstracted Result [facility] Provider HEALTH MAINTENANCE Final Result * Cervical Cancer Screening: HPV (03/10/2023) [facility] Cervical Cancer Screening: HPV negative, abstracted Result [facility] Provider HEALTH MAINTENANCE Final Result * Lipid panel (04/15/2022) [facility] LDL/HDL Ratio 3 0 - 4 Triglycerides 121 0 - 150 mg/dL Cholesterol 173 0 - 200 mg/dL HDL 61 >=40 mg/dL LDL Cholesterol 88 0 - 100 mg/dL Blood Venous blood specimen / Unknown Result [facility] Provider LAB BLOOD ORDERABLES Carly l Result * HIV Screening (09/22/2020) [facility] HIV Screening abstracted Result [facility] Provider HEALTH MAINTENANCE Final Result * Hepatitis C Screening (09/22/2020) [facility] Hepatitis C Screening abstracted Result [facility] Provider HEALTH MAINTENANCE Final Result from Last 3 Months or Most Recently Relevant to Health Maintenance Insurance [facility] Care Teams Operator Supply Relationship Specialty Start Date End Date Dorys Tan MD [address] [place] [id number] PCP - General Internal Medicine 12/10/21
--- OUTSIDE RECORDS SUMMARY | 2024-07-26 12:02 | XMS_ITS | Encounter Summary ---
Author Organization [facility] Address [address] [place] [address] Care Team Providers Care Rodent Exterminator Name Role Phone Dorys Tan MD Primary Care Prov ider Reason for Referral * Cardiac Stress Testing (Routine) - Pending Review Specialty Diagnoses / Procedures Referred By Chelseyac t Referred To Contact Cardiology Diagnoses Syncope and collapse Procedures Tilt table Chris Mills MD [facility] [address] [place] [address] Phone: tel: fax: [facility] Referral ID Status Reason Start Date Expiration Date V isits Requested Visits Authorized [id number] Pending Review 06/06/2024 06/06/2025 1 1 Reason for Visit * Cardiac Stress Testing (Routine) - Pending Review Specialty Diagnoses / Procedures Referred By Contac t Referred To Contact Cardiology Diagnoses Syncope and collapse Procedures Tilt table Chris Mills MD [facility] [address] [place] [address] Phone: tel: fax: [facility] Referral ID Status Reason Start Date Expiration Date V isits Requested Visits Authorized [id number] Pending Review 06/06/2024 06/06/2025 1 1 Encounter Details Date Type Department Care Team (Latest Contact Info) Description 07/24/2024 2:19 PM EDT - 07/24/2024 11:59 PM EDT Hospital Encounter [facility] Xray [address] [place] [phone] Syncope and collapse Discharge Disposition: Home or Self Care Social [...] 9:00 AM EDT Office Visit Adult Medicine [address] [phone] Niki Mckeon PA [address] [place], [place] 11/02/2024 10:00 AM EDT Office Visit Obstetrics and Gynecology - [address] [phone] Chikis Lott, [address] 12/01/2024 11:00 AM EDT Appointment Radiology Department - [address] [phone] documented as of this encounter Procedures Procedure Name Priority Date/Time Associated Diagnosis Comments TILT TABLE Routine 07/24/2024 2:46 PM EDT Syncope and collapse documented in this encounter Results * Tilt table (07/24/2024 2:46 PM [...] [facility] CARDIAC SERVICES PROCEDURES F inal Result documented in this encounter Visit Diagnoses Diagnosis Syncope and collapse Encounter for screening mammogram for breast cancer documented in this encounter Care Teams Rodent Exterminator Relationship Specialty Start Date End Date Dorys Tan MD [address] [place] [id number] PCP - General Internal Medicine 12/10/21 documented as of this encounter
== END 2024-07-26 12:30 | disposition home or self-care (01) ==
LOC: HO.HSMS 11:23
PROVIDERS: PCP Internal Medicine; Visit Provider Nurse Practitioner Family
DX: G43.009 Migraine without aura, not intractable, without status migrainosus (principal); R55 Syncope and collapse; R41.89 Other symptoms and signs involving cognitive functions and awareness; M54.2 Cervicalgia; M40.203 Unspecified kyphosis, cervicothoracic region; H54.62 Unqualified visual loss, left eye, normal vision right eye
CPT/HCPCS: 99214

== ENCOUNTER 2024-08-10 08:34 | Outpatient (AMB) | payer OTHER, SELFPAY ==
--- NOTE | 2024-08-10 08:37 | A.OFFVIS_ITS ---
Vital Signs 08/10/24 08:38 Height 5 ft 5 in Weight 137 lb BMI 22.8 BP 122/62 Blood Pressure Location Lt brachial Position Sitting Pulse 78 Pulse Source Pulse Oximeter Intake Visit Reasons: fu req by Dr. Mills/ citlali tilt table Allergies Sulfa (Sulfonamide Antibiotics) Allergy (Intermediate, Verified 07/26/24 11:26) Swelling HPI HPI fu req by Dr. Mills/ citlali tilt table: Details: Keily is a 33-year-old female presenting with orthostatic hypotension and possible POTS. She has longstanding orthostatic lightheadedness and dizziness with presyncope and syncope. Orthostatic hypotension was confirmed by recent tilt table testing. Her neurology provider previously identified POTS as an additional concern. She manages these conditions with high fluid intake and 1000 mg sodium pills, reporting improvement in symptoms with rest, hydration, and salt. She notes sensations of lightheadedness upon position changes, heart palpitations with prolonged standing and generalized muscle soreness. [facility] Medical History Patient denies medical problems Family History Mother No problems noted. Father No problems noted. Social History Alcohol intake: current Alcohol intake frequency: holidays/special occasions only Patient Tobacco Use Status: Never used Tobacco Review of Systems Const Details: foggy head All systems reviewed & are unremarkable except as noted in HPI and below Denies weakness ENT Reports dizziness Card Details: heart palpitations at times Denies chest pain, Denies chest pain with activity, Denies syncope, Denies rapid heart rate, Denies pedal edema, Denies edema, Denies leg edema, Denies lightheadedness, Denies palpitations, Denies dyspnea, Denies dyspnea on exertion and Denies orthopnea Resp Denies cough, Denies dyspnea and Denies dyspnea on exertion GI Denies hematochezia and Denies change in stool character Musc Details: body aches, tenderness Denies abnormal gait, Denies muscle cramps, Denies muscle weakness, Denies numbness, Denies radiating pain into limb and Denies tingling Neuro Denies abnormal gait, Reports dizziness, Denies syncope, Denies numbness, Denies tingling and Denies weakness Endo Denies palpitations Physical Exam Vital Signs: Last Vital Signs Pulse 78 08/10/24 08:38 BP 122/62 08/10/24 08:38 BMI result Body Mass Index 22.8 Const General: cooperative, healthy appearing, comfortable and no acute distress Orientation/consciousness: patient oriented x3 Neck Neck: Yes normal visual inspection and Yes no JVD Resp Effort & Inspection: normal respiratory effort Auscultation: clear to auscultation bilaterally, no rales, no rhonchi and no wheezes Cardio Jugular venous distension: no JVD Rate: regular rate Rhythm: regular rhythm Heart sounds: S1 normal heart sound present, S2 normal heart sound present, no gallops, no murmurs and no rubs Neuro General: patient oriented x3 Extrem General: Yes normal to inspection, No no pedal edema and No calf tenderness Psych Appearance: grossly normal Mental Status: mental status grossly normal Speech and movement: Normal speech and movement present Assessment & Plan Assessment & Plan (1) Syncope: Comment: Tilt-table test consistent with orthostatic hypotension Code(s): R55 - Syncope and collapse Category: Medical Qualifiers: Syncope type: unspecified Qualified Code(s): R55 - Syncope and collapse Plan: History of syncope and presyncope, with history of lightheadedness on position changes. Cardiac evaluation with EKG 06/06/2024 showing sinus rhythm with short IL, rate 70. Holter monitor done 06/27/2024 for 6 days showed sinus rhythm with average heart rate 79 beats per minute, no significant arrhythmia or pauses. Echocardiogram 06/27/2024 showed EF 60-65%, no valve abnormalities. A tilt-table test was done at [facility] on 07/24/2024 showing orthostatic hypotension. This result was reviewed with her in detail. We discussed management with good hydration, liberal use of salt in her diet, compression stockings. I gave her a pair of compression stockings from our office stock. Exercise encouraged. Cardiology follow-up in 3-4 months to re-evaluate effectiveness of conservative measures. (2) Orthostatic hypotension: Code(s): I95.1 - Orthostatic hypotension Category: Medical Plan: As above (3) Brain fog: Comment: DDx includes migraine, vestibular migraine, ADHD, vascular d/o. Code(s): R41.89 - Other symptoms and signs involving cognitive functions and awareness Category: Medical Plan: Follows with neurology Plan I discussed with the patient the primary diagnosis of orthostatic hypotension and potential management via conservative measures like hydration, sodium intake, and compression therapy. The benefits of exercise in specific recumbent positions were highlighted. Risks of potential symptomatic exacerbation and benefits of consistent positioning were acknowledged. Consent for trialing compression stockings was obtained without need for immediate pharmacotherapy. Additionally, the connection between physical symptoms and POTS was explored to facilitate understanding and onboarding of non-pharmacological strategies. Follow-up care provision was discussed for monitoring progress and potential need for evolving treatment strategies. Patient Instructions: - Drink plenty of fluids daily (at least 64+ ounces) - Take 1000 mg salt pills once to twice a day as needed - Use knee-high compression socks during the day - Try recumbent exercises, like rowing or cycling - Observe symptoms and adapt activity when needed - Contact us if symptoms worsen or you experience fainting - Follow up as discussed for reassessment Patient was informed and verbally consented to the use of an ambient scribe for clinic note documentation during this visit. Visit time spent on chart review, interview, assessment, orders, documentation. Coding Level of Care Code Est Pt Level 4 (75831) Complex EM visit Add On G2211 Diagnoses Syncope, unspecified syncope type R55 Syncope type: unspecified Orthostatic hypotension I95.1 Brain fog R41.89 Time Spent (min) 32
[2024-08-10 08:38] VITALS: BP 122/62; PULSE 78; BMI 22.8
--- OUTSIDE RECORDS SUMMARY | 2024-08-10 08:48 | XMS_ITS | Clinical Summary ---
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 Name Role Phone Dorys Tan MD Primary Care Prov ider Allergies Active Allergy Reactions Criticality Noted Date Comments Sulfa (Sulfonamide Antibiotics) Swelling 08/2014 Medications amphetamine-dex troamphetamine (ADDERALL) 10 mg tablet TAKE 1 TABLET (10 MG)ORALLY 2 TIMES A DAY ADMINISTER DOSES AT LEAST 4-6 HOURS APART Active Active Problems Problem Noted Date Diagnosed Date Attention deficit hyperactiv ity disorder (ADHD), predominantly hyperactive type 07/31/2024 Overview (07/31/2024): 07/2024: Sees [facility] (Lakisha March) POTS (postural orthostatic tachycardia syndrome) 07/31/2024 Left breast mass 05/11/2021 Overview (03/02/2024): 05/2021- [...] Encounters Date Type Department Care Team Description 07/31/2024 9:00 AM EDT Office Visit Adult Medicine [address] [phone] Niki Mckeon PA Routine general medical examination at a health care facility (Primary Dx); Attention deficit hyperactivity disorder (ADHD), predominantly hyperactive type; POTS (postural orthostatic tachycardia syndrome); Recent urinary tract infection; Screening for cardiovascular condition; Encounter for screening involving social determinants of health (SDoH) [Z13.9] 07/24/2024 2:19 PM EDT - 07/24/2024 11:59 PM EDT Hospital Encounter [facility] Xray [address] [place] [address] Syncope and collapse Discharge Disposition: Home or Self Care 05/31/2024 1:59 PM EDT - 05/31/2024 11:59 PM EDT Hospital Encounter Radiology Department - [address] [phone] Breast lump Discharge Disposition: Home or Self Care 05/31/2024 1:38 PM EDT - 05/31/2024 11:59 PM EDT Hospital Encounter Radiology Department [address] [phone] Breast lump Discharge Disposition: Home or Self Care from Last 3 Months Immunizations Name Administration Dates Next Due DTaP (Infanrix) 6wks to less than 7yo ,02/25/1994,07/03/1993,02/09 [id number] (Pentacel) 2mo to less than 5yo 02/09/1993 [...] habits Abdominal cramping DX:Abdominal cramping Diarrhea DX:Diarrhea Attention deficit hyperactiv ity disorder (ADHD), predominantly hyperactive type 07/31/202407/2024: Sees [facility] POTS (postural orthostatic tachycardia syndrome) 07/31/2024 Family History Medical History Relation Name Comments No Known Problems Daughter No Known Problems Father No Known Problems Maternal Grandfather Transient ischemic attack Maternal Grandmother Breast cancer Mother metastatic to colon Thyroid disease Mother Breast cancer Mother's side 1 Great aunt Breast cancer Mother's side 2 Great aunt Other: bone cancer Mother's side 3 great grandmother Testicular cancer Mother's side 4 great g randfather Heart attack Paternal Grandfather Stomach cancer Paternal Grandmother Breast cancer Sister 1 Drug abuse Sister 1 BRCA 1/2 Sister 2 BRCA 1/2 Sister 3 Ovarian cancer Neg Hx Uterine cancer Neg Hx Relation Name Status Comments Daughter Alive Father Alive Maternal Grandfather Maternal Grandmother Alive Mother Mother's side 1 Alive Mother's side 2 Alive Mother's side 3 Mother's side 4 Paternal Grandfather Paternal Grandmother Sister 1 Sister 2 Alive Sister 3 Alive Social History Tobacco Use Types Packs/Day Years Used Date Smoking Tobacco: Former Cigarettes Q uit: 03/07/2014 Smokeless Tobacco: Never Tobacco Cessation:Counseling Given: Not Answered Alcohol Use Standard Drinks/Week Comments Yes 0 (1 standard drink = 0.6 oz pur e alcohol) Housing Instability Answer Date Recorde d Are you worried that in the next 2 months you may not have stable housing? No 07/31/2024 Food Access & Nutrition Answer Date Rec orded Do you have access to a vari ety of food including fruits and vegetables? No 07/31/2024 Access to Healthcare Answer Date Record ed Within the last 3 months, ho jimmie many times did you visit the emergency department for your medical care? 0 07/31/2024 Health Literacy Answer Date Recorded How often do you need to hav e someone help you when you read instructions, pamphlets, or other written material from your doctor or pharmacy? Never 07/31/2024 Caregiver: How often do you need to have someone help you when you read instructions, pamphlets, or other written material from your doctor or pharmacy? Not on file 07/31/2024 Financial Risk Answer Date Recorded How hard is it for you to pa y for the very basics like food, housing, medical care, and air conditioning / heating? Not very hard 07/31/2024 Transportation Answer Date Recorded Has the lack of transportati on kept you from meetings, work, or from getting things needed for daily living? No Has the lack of transportati on kept you from medical appointments or from getting medications? No 07/31/2024 Social Isolation Answer Date Recorded How often do you feel lonely or isolated from th ose around you? Never 07/31/2024 Food Risk Answer Date Recorded Within the past 12 months we worried whether our food would run out before we got money to buy more. Never true 07/31/2024 Within the past 12 months th e food we bought just didn't last and we didn't have money to get more. Never true 07/31/2024 Dependent Care Answer Date Recorded Do you need help finding or paying for care for your loved ones. For example, child support investigator or elderly care for an older adult? No 07/31/2024 Education Answer Date Recorded Do you think completing more education or training, like finishing a GED, going to college, or learning a trade, would be helpful for you? No 07/31/2024 Employment and Income Answer Date Recor ded During the last four weeks, have you been actively looking for work? No 07/31/2024 Living Situation Answer Date Recorded What is your living situation? 0 07/31/2024 Comments Unknown Sex and Gender Information Value Date Recorded Sex Assigned at Not on file Legal Sex Female 9:54 PM EST Gender Identity Not on file Sexual Orientation Not on file Obstetrics History Last Filed Vital Signs Vital Sign Reading Time Taken Comments Blood Pressure 122/80 07/31/2024 9:00 AM EDT Pulse 78 07/31/2024 9:00 AM EDT Temperature 36.7 ??C (98 ??F) 07/31/2024 9:00 AM EDT Respiratory Rate 16 07/31/2024 9:00 AM EDT Oxygen Saturation - - Inhaled Oxygen Concentration - - Weight 61.2 kg (135 lb) 07/31/2024 9:00 AM EDT Height 165.1 cm (5' 5 ) 07/31/2024 9:00 AM EDT Body Mass Index 22.47 07/31/2024 9:00 AM EDT Plan of Treatment Upcoming Encounters Date Type Department Care Team (Late st Contact Info) Description 11/02/2024 10:00 AM EDT Office Visit Obstetrics and Gynecology - [address] [phone] Chikis Lott, [facility] [address] [place] [address] 12/01/2024 11:00 AM EDT Appointment Radiology Department - [address], [place] [phone] 07/31/2025 3:00 PM EDT Office Visit Adult Medicine [facility] [address] [place], [place] [phone] Niki Mckeon PA [address] [place] [address] Health Maintenance Due Date Last Done Comments Hepatitis B Vaccines (2 of 3 - 3-dose series) 05/22/1997 04/24/1997 DTaP,Tdap,and Td Vaccines (7 - Td or Tdap) 08/31/2019 08/30/2009, 11/13/2004, 04/24/1997, Additional history exists Influenza Vaccine (Season Ended) 2024 12/09/2014, 01/05/2014, 11/28/2013, Additional history exists Depression Screening 11/28/2024 11/29/2023 Social Influencers of Health Screening 07/31/2025 07/31/2024 Cervical Cancer Screening: HPV 03/10/2026 03/10/2023 Cholesterol Screening (Lipid Panel) 08/01/2029 08/01/2024, 04/15/2022 HIB Vaccines Aged Out 02/09/1993 No longer eligi ble based on patient's age to complete this topic Varicella Vaccines Aged Out 05/06/1995 No longer eligible based on patient's age to complete this topic IPV Vaccines Completed 04/24/1997, 02/05, 07/03/1993, Additional history exists MMR Vaccines Completed 04/24/1997, 02/26/1994 Meningococcal ACWY Vaccine Completed 01/09/2010 HPV Vaccines Completed 05/14/2010, 1107/2009, 10/30/2009 HIV Screening Completed 09/22/2020 Hepatitis C Screening Completed 09/22/2020 COVID-19 Vaccine Discontinued Hepatitis A Vaccines Aged Out No long [...] Procedure Name Priority Date/Time Associated Diagnosis Comments CBC WITH AUTO DIFFERENTIAL Routine 08/01/2024 9:30 AM EDT Screening for cardiovascular condition LIPID PANEL WITH REFLEX TO DIRECT LDL Routine 08/01/2024 9:30 AM EDT Screening for cardiovascular condition COMPREHENSIVE METABOLIC PANEL Routine 08/01/2024 9:30 AM EDT Screening for cardiovascular condition CBC AND DIFFERENTIAL Routine 08/01/2024 9:30 AM EDT Screening for cardiovascular condition CULTURE URINE Routine 08/01/2024 9:30 AM EDT Recent urinary tract infection TILT TABLE Routine 07/24/2024 2:46 PM EDT Syncope and collapse US BREAST LIMITED RIGHT Routine 05/31/2024 2:05 PM EDT Breast lump US BREAST LIMITED LEFT Routine 05/31/2024 1:53 PM EDT Breast lump DEPRESSION SCREENING Routine 11/29/2023 HM HPV Routine 03/10/2023 HEPATITIS C SCREENING Routine 09/22/2020 HIV SCREENING Routine 09/22/2020 from Last 3 Months or Most Recently Relevant to Health Maintenance Results * (ABNORMAL) Lipid panel with reflex to direct LDL (08/01/2024 9:30 AM EDT) Cholesterol 187 0 - 200 mg/dL LAB CHEMISTRY METHOD 08/01/2024 1:[address] [facility] Triglycerides 48 0 - 150 mg/dL LAB CHEMISTRY METHOD 08/01/2024 1:[address] [facility] HDL 65 >=40 mg/dL LAB CHEMISTRY METHOD 08/01/2024 1:[address] [facility] LDL Calculated 112(H) 0 - 100 mg/dL LAB CHEMISTRY METHOD 08/01/2024 1:[address] [facility] VLDL Cholesterol Nathaniel 9.6 mg/dL LAB CHEMISTRY METHOD 08/01/2024 1:[address] [facility] Non HDL Chol. (LDL+VLDL) 122 <145 mg/dL LAB CHEMISTRY METHOD 08/01/2024 1:[address] [facility] Chol/HDL Ratio 2.9 0.0 - 4.4 LAB CHEMISTRY METHOD 08/01/2024 1:[address] [facility] Blood Venous blood specimen / Unknown Venipuncture / Unknown 08/01/2024 9:30 AM EDT 08/01/2024 9:30 AM EDT Niki ARCEO LAB BLOOD ORDERABLES Final Resu lt [facility] [address] [place] [address], * (ABNORMAL) CBC auto differential (08/01/2024 9:30 AM EDT) WBC 4.1(L) 4.8 - 10.8 K/mcL LAB HEMETOLOGY METHOD 08/01/2024 12:[address] [facility] RBC 3.90 3.80 - 4.80 M/mcL LAB HEMETOLOGY METHOD 08/01/2024 12:[address] [facility] Hemoglobin 11.7 11.5 - 16.0 g/dL LAB HEMETOLOGY METHOD 08/01/2024 12:12 PM [facility] Hematocrit 36.7 35.0 - 47.0 % LAB HEMETOLOGY METHOD 08/01/2024 12:[address] [facility] MCV 94.8 79.0 - 98.0 FL LAB HEMETOLOGY METHOD 08/01/2024 12:[address] [facility] MCH 30.2 27.0 - 32.0 pcg LAB HEMETOLOGY METHOD 08/01/2024 12:12 PM [facility] MCHC 31.9(L) 32.0 - 37.0 g/dL LAB HEMETOLOGY METHOD 08/01/2024 12:[address] [facility] RDW 13.4 11.0 - 15.0 % LAB HEMETOLOGY METHOD 08/01/2024 12:[address] [facility] Platelets 272 130 - 400 K/mcL LAB HEMETOLOGY METHOD 08/01/2024 12:12 PM [facility] MPV 10.7 7.0 - 11.0 FL LAB HEMETOLOGY METHOD 08/01/2024 [facility] NRBC 0.0 <1.0 % LAB HEMETOLOGY METHOD 08/01/2024 12:12 PM [facility] NRBC Absolute 0.00 <0.10 K/mcL LAB HEMETOLOGY METHOD 08/01/2024 12:12 PM [facility] Neutrophils Relative 55.4 % LAB HEMETOLOGY METHOD 08/01/2024 12:12 PM [facility] Lymphocytes Relative 33.1 % LAB HEMETOLOGY METHOD 08/01/2024 12:12 PM [facility] Monocytes Relative 8.7 % LAB HEMETOLOGY METHOD 08/01/2024 12:12 PM [facility] Eosinophils Relative 1.9 % LAB HEMETOLOGY METHOD 08/01/2024 12:12 PM [facility] Basophils Relative 0.7 % LAB HEMETOLOGY METHOD 08/01/2024 12:[address] [facility] Immature Granulocytes Relative 0.2 % LAB HEMETOLOGY METHOD 08/01/2024 12:[address] [facility] Neutrophils Absolute 2.29 1.50 - 7.00 K/mcL LAB HEMETOLOGY METHOD 08/01/2024 12:[address] [facility] Lymphocytes Absolute 1.37 1.00 - 5.00 K/mcL LAB HEMETOLOGY METHOD 08/01/2024 12:[address] [facility] Monocytes Absolute 0.36 0.20 - 1.00 K/mcL LAB HEMETOLOGY METHOD 08/01/2024 12:[address] [facility] Eosinophils Absolute 0.08 0.00 - 0.50 K/mcL LAB HEMETOLOGY METHOD 08/01/2024 12:[address] [facility] Basophils Absolute 0.03 0.00 - 0.20 K/mcL LAB HEMETOLOGY METHOD 08/01/2024 12:[address] [facility] Immature Granulocytes Absolute 0.01 0.00 - 0.03 K/mcL LAB HEMETOLOGY METHOD 08/01/2024 12:[address] [facility] Blood Venous blood specimen / Unknown Venipuncture / Unknown 08/01/2024 9:30 AM EDT 08/01/2024 9:30 AM EDT us Niki ARCEO LAB BLOOD ORDERABLES Final Resu lt [facility] [address] [place] [address], * Culture urine (08/01/2024 9:30 AM EDT) Culture, Urine No growth 08/02/2024 11:[address] [facility] Urine Urine specimen obtained by clean catch procedure / Unknown Non-blood Collection / Unknown 08/01/2024 9:30 AM EDT 08/01/2024 9:30 AM EDT Niki ARCEO LAB MICROBIOLOGY - GENERAL CHAVO TROTTER Final Result [facility] [address] [place] [address], * (ABNORMAL) Comprehensive metabolic panel (08/01/2024 9:30 AM EDT) Sodium 136 133 - 145 mmol/L LAB CHEMISTRY METHOD 08/01/2024 1:23 PM [facility] Potassium 4.0 3.5 - 5.5 mmol/L LAB CHEMISTRY METHOD 08/01/2024 1:23 PM [facility] Chloride 103 96 - 110 mmol/L LAB CHEMISTRY METHOD 08/01/2024 1:23 PM [facility] CO2 25 21 - 32 mmol/L LAB CHEMISTRY METHOD 08/01/2024 1:23 PM [facility] Anion Gap 8 3 - 11 LAB CHEMISTRY METHOD 08/01/2024 1:23 PM [facility] Glucose 92 70 - 100 mg/dL LAB CHEMISTRY METHOD 08/01/2024 1:23 PM [facility] BUN 6 5 - 25 mg/dL LAB CHEMISTRY METHOD 08/01/2024 1:23 PM [facility] Creatinine 0.73 0.50 - 1.10 mg/dL LAB CHEMISTRY METHOD 08/01/2024 1:23 PM [facility] eGFR 113 >=60 mL/min/1. 73m2 LAB CHEMISTRY METHOD 08/01/2024 1:23 PM [facility] Comment:Calculation based on the Chronic Kidney Disease Epidemiology Collaboration (CKD-EPI) equation refit without adjustment for race. BUN/Creatinine Ratio 8.2 LAB CHEMISTRY METHOD 08/01/2024 1:[address] [facility] Calcium 9.2 8.5 - 10.5 mg/dL LAB CHEMISTRY METHOD 08/01/2024 1:[address] [facility] AST (SGOT) 8(L) 10 - 42 unit/L LAB CHEMISTRY METHOD 08/01/2024 1:[address] [facility] ALT (SGPT) 14 10 - 60 unit/L LAB CHEMISTRY METHOD 08/01/2024 1:[address] [facility] Alkaline Phosphatase 53 42 - 121 unit/L LAB CHEMISTRY METHOD 08/01/2024 1:[address] [facility] Total Protein 7.2 6.0 - 8.0 g/dL LAB CHEMISTRY METHOD 08/01/2024 1:[address] [facility] Albumin 4.0 3.2 - 5.0 g/dL LAB CHEMISTRY METHOD 08/01/2024 1:[address] [facility] Total Bilirubin 0.5 0.0 - 1.4 mg/dL LAB CHEMISTRY METHOD 08/01/2024 1:[address] [facility] Blood Venous blood specimen / Unknown Venipuncture / Unknown 08/01/2024 9:30 AM EDT 08/01/2024 9:30 AM EDT us Niki ARCEO LAB BLOOD ORDERABLES Final Resu lt [facility] [address] [place] [address], * Tilt table (07/24/2024 2:46 PM EDT) [...] and recommendations communicated to the patient via processing technologist. BI-RADS CATEGORY: 2 - BENIGN RECOMMENDATION: Return to annual mammography. -------- FINAL REPORT -------- Dictated By: Roscoe Rene Dictated Date: 05/31/2024 14:16 ET Assigned Physician: Roscoe Rene Reviewed and Electronically Signed By: Roscoe Rene Signed Date: 05/31/2024 15:39 ET Workstation ID: [id number] Transcribed By: Self Edit Transcribed Date: 05/31/2024 14:56 ET Narrative 05/31/2024 3:39 PM EDT US BREAST LIMITED RIGHT US BREAST LIMITED LEFT CLINICAL: Left: This is a 6 month follow-up of enlarging biopsy-proven 2 adjacent fibroadenomas located at 2 o'clock position retroareolar. ??The biopsy was performed at the [facility] on May 13, 2021. Right: [...] position retroareolar. The biopsy wasperformed at the [facility], 2021. Right: [...] Signed Date: 05/31/2024 15:39 ET Workstation ID: [id number] Transcribed By: Self Edit Transcribed Date: 05/31/2024 [...] and recommendations communicated to the patient via processing technologist. BI-RADS CATEGORY: 2 - BENIGN RECOMMENDATION: Return to annual mammography. -------- FINAL REPORT -------- Dictated By: Roscoe Rene Dictated Date: 05/31/2024 14:16 ET Assigned Physician: Roscoe Rene Reviewed and Electronically Signed By: Roscoe Rene Signed Date: 05/31/2024 15:39 ET Workstation ID: [id number] Transcribed By: Self Edit Transcribed Date: 05/31/2024 14:56 ET Narrative 05/31/2024 3:39 PM EDT US BREAST LIMITED RIGHT US BREAST LIMITED LEFT CLINICAL: Left: This is a 6 month follow-up of enlarging biopsy-proven 2 adjacent fibroadenomas located at 2 o'clock position retroareolar. ??The biopsy was performed at the [facility] on May 13, 2021. Right: [...] position retroareolar. The biopsy wasperformed at the [facility] on May 13, 2021. Right: [...] Signed Date: 05/31/2024 15:39 ET Workstation ID: [id number] Transcribed By: Self Edit Transcribed Date: 05/31/2024 14:56 ET Dorys Tan MD [facility] US PROCEDURES Final Result * Depression Screening (11/29/2023) Depression Screening abstracted Historical Provider MD HEALTH MAINTENANCE Final Result * Cervical Cancer Screening: HPV (03/10/2023) Pathologist [facility] Cervical Cancer Screening: HPV negative, abstracted Historical Provider HEALTH MAINTENANCE Final Result * HIV Screening (09/22/2020) Pathologist [facility] HIV Screening abstracted Historical Provider HEALTH MAINTENANCE Final Result * Hepatitis C Screening (09/22/2020) Pathologist [facility] Hepatitis C Screening abstracted Historical Provider HEALTH MAINTENANCE Final Result from Last 3 Months or Most Recently Relevant to Health Maintenance Insurance [facility] Care Teams Butting Saw Operator Relationship Specialty Start Date End Date Dorys Tan MD [address] [place] [id number] PCP - General Internal Medicine 12/10/21
== END 2024-08-10 09:10 | disposition home or self-care (01) ==
LOC: HO.HCS 08:35
PROVIDERS: PCP Internal Medicine; Visit Provider Nurse Practitioner Family
DX: R55 Syncope and collapse (principal); I95.1 Orthostatic hypotension; R41.89 Other symptoms and signs involving cognitive functions and awareness
CPT/HCPCS: 99214

== ENCOUNTER → 2024-08-10 08:34 | Outpatient (BNVA) | payer OTHER, SELFPAY | PROVIDERS: PCP Internal Medicine; Visit Provider Nurse Practitioner Family ==

== ENCOUNTER 2024-10-15 09:14 | Outpatient (AMB) | payer OTHER, SELFPAY ==
--- NOTE | 2024-10-15 09:19 | A.OFFPSYCH_ITS ---
Intake Intake Visit Reasons: f/u consultation Money Position Officer Required: No Allergies Sulfa (Sulfonamide Antibiotics) Allergy (Intermediate, Verified 07/26/24 11:26) Swelling Medication List - Last Reconciled 10/15/24 by Lakisha Bruce APRN dextroamphetamine-amphetamine 5 mg (Adderall) 10 mg (2 x 5 mg) PO BID HPI- Psychiatric Chief Complaint: f/u consultation HPI Narrative: pt reports she is responding well to the adderall 10 mg BID. Although she reports that at times the brand changes from pharmacy have had different levels of efficacy. Sometimes she feels like one brand is very helpful and then next time she gets it filled it is less so. She starts her day at 5am and feels the adderall is helpul for her to remember everything to get out the door on time each work day. She has found that if she takes the adderall after 2pm she can have some trouble falling and staying asleep. She is working on self care. She denies SI or HI. she is functioning well at home and work. Past Psychiatric History: none Subjective Subjective Subjective Medication Compliance: Yes Side effects from medications: No Review of Systems Medical Review of Systems: unchanged Mental Status Exam Mental Status Exam Patient Appearance: Well Grooomed and Appropriate Patient Orientation: Person, Place, Time and Situation Level of Consciousness: Awake, Appropriate and Alert Patient Behavior: Appropriate, Cooperative and Good Eye Contact Mood Description: Cheerful and Anxious Affect Description: Cheerful and Anxious Patient Cognition Impaired: No Ability to Follow Directions: Good Speech Pattern: Clear Memory Description: Intact Hallucinations: None Delusions: Not Present Thought Process: Intact Thought Content: positive for Intact Judgement: Good Assessment and Plan Assessment & Plan (1) ADHD (attention deficit hyperactivity disorder): Status: Acute Qualifiers: Attention deficit-hyperactivity disorder type: combined inattentive- hyperactive Qualified Code(s): F90.2 - Attention-deficit hyperactivity disorder, combined type Code(s): F90.9 - Attention-deficit hyperactivity disorder, unspecified type Plan rule out PTSD and OCD Medications: New dextroamphetamine-amphetamine 10 mg (Adderall) administer doses at least 4-6 hours apart; Partial Fill upon patient request. 10 mg PO TID 90 tabs 0RF F90.2 - Attention-deficit hyperactivity disorder, combined type Discontinued dextroamphetamine-amphetamine 5 mg (Adderall) administer doses at least 4-6 hours apart; Partial Fill upon patient request. NO SANDOZ BRAND Discontinued Reason: Doctor's Order 10 mg (2 x 5 mg) PO BID 120 tabs 0RF Counseling and coordination of Care Pt. Self Management counseling: Sleep hygiene and Cognitive restructuring Medication management counseling: Effectiveness, Side effects, Dosing range, Duration, Drug interaction and Adherence Diagnosis and Prognosis Counseling: Accuracy of diagnosis, Prognosis over time, Impact of diagnosis on life functions, Impact of family relationship, Problematic behaviors secondary to diagnosis and Adequacy of current interventions Details: I spent 38 minutes reviewing the record, seeing the patient and documenting in the medical record. Counseling provided to the patient/caregiver as outlined below. Addressed patient/caregiver concerns regarding current medication regime including effective adherence. Addressed patient/caregiver concerns regarding diagnosis and prognosis including accuracy of diagnosis, prognosis over time, impact of diagnosis. Addressed patient/caregiver concerns regarding impact of recent stressors. [facility] Medical History Patient denies medical problems Family History Mother No problems noted. Father No problems noted. 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 Grew up mostaly with grandmother as parents had addiction issues; she and her younger sister went to foster care off and on. She and sister spent 2 yrs in foster care until pt turned 20 and then she took custody of her younger sister. she also has 2 older sister one of whom recently from metastatic breast cancer. Substance History: none Trauma History: yes childhood Coding Level of Care Code Est Pt Level 4 (76551) Diagnoses Attention deficit hyperactivity disorder (ADHD), combined type F90.2 Attention deficit-hyperactivity disorder type: combined inattentive- hyperactive
--- OUTSIDE RECORDS SUMMARY | 2024-10-15 09:41 | XMS_ITS | Clinical Summary ---
Author Organization [facility] [address] [place] [address] [place] [phone] Phone Care Team Providers Care Heating Repair Technician Name Role Phone Dorys Tan MD [...] hyperactive type 07/31/2024 Overview (07/31/2024): 07/2024: Sees [facility] (Lakisha March) POTS (postural orthostatic tachycardia syndrome) [...] 9:00 AM EDT Office Visit Adult Medicine [facility] [address] [place] [address] Niki Mckeon PA Routine general medical examination at a health care facility (Primary Dx); Attention deficit hyperactivity disorder (ADHD), predominantly hyperactive type; POTS (postural orthostatic tachycardia syndrome); Recent urinary tract infection; Screening for cardiovascular condition; Encounter for screening involving social determinants of health (SDoH) [Z13.9] 07/24/2024 2:19 PM EDT - 07/24/2024 11:59 PM EDT Hospital Encounter [facility] Xray [address] [place] [address] Syncope and collapse Discharge Disposition: Home or Self Care from Last 3 Months Immunizations Name Administration Dates Next Due DTaP (Infanrix) 6wks to less than 7yo ,02/25/1994,07/03/1993,02/09 [id number] (Pentacel) 2mo to less than 5yo 02/09/1993 [...] disorder (ADHD), predominantly hyperactive type 07/31/202407/2024: Sees [facility] POTS (postural orthostatic tachycardia syndrome) 07/31/2024 Family [...] ed Within the last 3 months, ho w many times did you visit the emergency [...] for your loved ones. For example, child care counselor or elderly care for an older adult? [...] 78 07/31/2024 9:00 AM EDT Temperature 36.7 C (98 F) 07/31/2024 9:00 AM EDT Respiratory Rate 16 07/31/2024 9:00 AM EDT Oxygen Saturation - - Inhaled Oxygen Concentration - - Weight 61.2 kg (135 lb) 07/31/2024 9:00 AM EDT Height 165.1 cm (5' 5 ) 07/31/2024 9:00 AM EDT Body Mass Index 22.47 07/31/2024 9:00 AM EDT Plan of Treatment Upcoming Encounters Date Type Department Care Team (Late st Contact Info) Description 12/01/2024 11:00 AM EDT Appointment Radiology Department - [address] [phone] 02/05/2025 10:00 AM EST Office Visit Obstetrics and Gynecology - [address] [phone] Chikis Lott, [address] 07/31/2025 3:00 PM EDT Office Visit Adult Medicine East - [address] [phone] Niki Mckeon PA [address] [place], [place] Health Maintenance Due Date Last Done Comments Hepatitis B Vaccines (2 of 3 - 3-dose series) 05/22/1997 04/24/1997 DTaP,Tdap,and Td Vaccines (7 - Td or Tdap) 08/31/2019 08/30/2009, 11/13/2004, 04/24/1997, Additional history exists Depression Screening 03/07/2024 11/29/2023 Influenza Vaccine (#1) 2024 5, 01/05/2014, 11/28/2013, Additional history exists Social Influencers of Health Screening 07/31/2025 07/31/2024 [...] Vaccine Completed 01/09/2010 HPV Vaccines Completed 05/14/2010, 11/0 07/2009, 10/30/2009 HIV Screening Completed 09/22/2020 Hepatitis C Screening Completed 09/22/2020 COVID-19 Vaccine Discontinued Hepatitis A Vaccines Aged Out No long er eligible based on patient's age to complete this topic Meningococcal B Vaccine Aged Out No l onger eligible based on patient's age to complete this topic Pneumococcal Vaccine: Pediatrics (0 to 5 Years) and At-Risk Patients (6 to 49 Years) Aged Out No longer eligible based [...] 07/24/2024 2:46 PM EDT Syncope and collapse DEPRESSION SCREENING Routine 11/29/2023 HM HPV Routine 03/10/2023 HEPATITIS C SCREENING Routine 09/22/2020 HIV SCREENING Routine 09/22/2020 from Last 3 Months or Most Recently Relevant to Health Maintenance Results * (ABNORMAL) Lipid panel with reflex to direct LDL (08/01/2024 9:30 AM EDT) Cholesterol 187 0 - 200 mg/dL LAB CHEMISTRY METHOD 08/01/2024 1:31 PM [facility] Triglycerides 48 0 - 150 mg/dL LAB CHEMISTRY METHOD 08/01/2024 1:31 PM [facility] HDL 65 >=40 mg/dL LAB CHEMISTRY METHOD 08/01/2024 1:31 PM [facility] LDL Calculated 112(H) 0 - 100 mg/dL LAB CHEMISTRY METHOD 08/01/2024 1:31 PM [facility] VLDL Cholesterol Nathaniel 9.6 mg/dL LAB CHEMISTRY METHOD 08/01/2024 1:31 PM [facility] Non HDL Chol. (LDL+VLDL) 122 <145 mg/dL LAB CHEMISTRY METHOD 08/01/2024 1:31 PM [facility] Chol/HDL Ratio 2.9 0.0 - 4.4 LAB CHEMISTRY METHOD 08/01/2024 1:31 PM [facility] Blood Venous blood specimen / Unknown Venipuncture / Unknown 08/01/2024 9:30 AM EDT 08/01/2024 9:30 AM EDT us Niki ARCEO LAB BLOOD ORDERABLES Final Resu lt [facility] [address] [place] [address], [place] [phone] * (ABNORMAL) CBC auto differential (08/01/2024 9:30 AM EDT) [facility] WBC 4.1(L) 4.8 - 10.8 K/mcL LAB HEMETOLOGY METHOD 08/01/2024 12:12 PM EDT [facility] RBC 3.90 3.80 - 4.80 M/mcL LAB HEMETOLOGY METHOD 08/01/2024 12:12 PM EDT [facility] Hemoglobin 11.7 11.5 - 16.0 g/dL LAB HEMETOLOGY METHOD 08/01/2024 12:12 PM EDT [facility] Hematocrit 36.7 35.0 - 47.0 % LAB HEMETOLOGY METHOD 08/01/2024 12:12 PM EDT [facility] MCV 94.8 79.0 - 98.0 FL LAB HEMETOLOGY METHOD 08/01/2024 12:12 PM EDT [facility] MCH 30.2 27.0 - 32.0 pcg LAB HEMETOLOGY METHOD 08/01/2024 12:12 PM EDT [facility] MCHC 31.9(L) 32.0 - 37.0 g/dL LAB HEMETOLOGY METHOD 08/01/2024 12:12 PM EDT [facility] RDW 13.4 11.0 - 15.0 % LAB HEMETOLOGY METHOD 08/01/2024 12:12 PM EDT [facility] Platelets 272 130 - 400 K/mcL LAB HEMETOLOGY METHOD 08/01/2024 12:12 PM EDT [facility] MPV 10.7 7.0 - 11.0 FL LAB HEMETOLOGY METHOD [facility]24 [facility] NRBC 0.0 <1.0 % LAB [...] 12:12 PM [facility] Immature Granulocytes Relative 0.2 % LAB HEMETOLOGY METHOD 08/01/2024 12:12 PM [facility] Neutrophils Absolute 2.29 1.50 - 7.00 K/mcL LAB HEMETOLOGY METHOD [facility]2024 [facility] Lymphocytes Absolute 1.37 1.00 - 5.00 K/mcL LAB HEMETOLOGY METHOD 08/01/2024 12:[facility] Monocytes Absolute 0.36 0.20 - 1.00 K/mcL LAB HEMETOLOGY METHOD 08/01/2024 12:12 PM [facility] Eosinophils Absolute 0.08 0.00 - 0.50 K/mcL LAB HEMETOLOGY METHOD 08/01/2024 12:12 PM EDT [facility] Basophils Absolute 0.03 0.00 - 0.20 K/[facility] LAB HEMETOLOGY METHOD 08/01/2024 12:12 PM EDT [facility] Immature Granulocytes Absolute 0.01 0.00 - 0.03 K/[facility] LAB HEMETOLOGY METHOD 08/01/2024 12:12 PM EDT [facility] Blood Venous blood specimen / Unknown Venipuncture / Unknown 08/01/2024 9:30 AM EDT 08/01/2024 9:30 AM EDT Niki ARCEO LAB BLOOD ORDERABLES Final Resu lt Performing Organization Address City/[facility]/ZIP Co de Phone Number [facility] [address] [place] [address], [place] [phone] * Culture urine (08/01/2024 9:30 AM EDT) Pathologist [facility] Culture, Urine No growth 08/02/2024 11:26 AM EDT [facility] Urine Urine specimen obtained by clean catch procedure / Unknown Non-blood Collection / Unknown 08/01/2024 9:30 AM EDT 08/01/2024 9:30 AM EDT Niki ARCEO LAB MICROBIOLOGY - GENERAL ORDE RABLES Final Result [facility] [address] [place] [address], [place] [phone] * (ABNORMAL) Comprehensive metabolic panel (08/01/2024 9:30 AM EDT) Sodium 136 133 - 145 mmol/L LAB CHEMISTRY METHOD 08/01/2024 1:23 PM EDT [facility] Potassium 4.0 3.5 - 5.5 mmol/L [...] 8.2 LAB CHEMISTRY METHOD 08/01/2024 1:23 PM [facility] Calcium 9.2 8.5 - 10.5 mg/dL LAB CHEMISTRY METHOD 08/01/2024 1:23 PM [facility] AST (SGOT) 8(L) 10 - 42 unit/L LAB CHEMISTRY METHOD 08/01/2024 1:23 PM [facility] ALT (SGPT) 14 10 - 60 unit/L LAB CHEMISTRY METHOD 08/01/2024 1:23 PM [facility] Alkaline Phosphatase 53 42 - 121 unit/L LAB CHEMISTRY METHOD 08/01/2024 1:23 PM [facility] Total Protein 7.2 6.0 - 8.0 g/dL LAB CHEMISTRY METHOD 08/01/2024 1:23 PM EDT [facility] Albumin 4.0 3.2 - 5.0 g/dL LAB CHEMISTRY METHOD 08/01/2024 1:23 PM EDT [facility] Total Bilirubin 0.5 0.0 - 1.4 mg/dL LAB CHEMISTRY METHOD 08/01/2024 1:23 PM EDT [facility] Blood Venous blood specimen / Unknown Venipuncture / Unknown 08/01/2024 9:30 AM EDT 08/01/2024 9:30 AM EDT us Niki ARCEO LAB BLOOD ORDERABLES Final Resu lt [facility] [address] [place] [address], [place] [phone] * Tilt table (07/24/2024 2:46 PM EDT) Anatomical Region Laterality Modality Radiographic Brittany ging Narrative 07/24/2024 3:30 PM EDT Pt symptomatic less than 90 sec after taking sl NTG. She became tachycardic and hypotensive. She currently drinks abt 100 oz of fluid [...] test with findings consistant with orthostatic hypotension. Result [facility] Chris Mills MD CV CARDIAC SERVICES PROCEDURES F inal Result * Depression Screening (11/29/2023) [facility] Depression Screening abstracted Result [facility] HEALTH MAINTENANCE Final Result * Cervical Cancer Screening: HPV (03/10/2023) [facility] Cervical Cancer Screening: HPV negative, abstracted Result [facility] Provider HEALTH MAINTENANCE Final Result * HIV Screening (09/22/2020) [facility] HIV Screening abstracted Result [facility] Provider HEALTH MAINTENANCE Final Result * Hepatitis C Screening (09/22/2020) [facility] Hepatitis C Screening abstracted Result [facility] Provider HEALTH MAINTENANCE Final Result from Last 3 Months or Most Recently Relevant to Health Maintenance Insurance [facility] [place] [phone] Care Teams Heating Repair Technician Relationship Specialty Start Date End Date Dorys Tan MD [address] [place] [phone] PCP - General Internal Medicine 12/10/21
== END 2024-10-15 09:46 | disposition home or self-care (01) ==
LOC: HO.HOP 09:14
PROVIDERS: PCP Internal Medicine; Visit Provider Clinical Nurse Specialist Psychiatric/Mental Health
DX: F90.2 Attention-deficit hyperactivity disorder, combined type (principal)
CPT/HCPCS: 99214

== ENCOUNTER 2024-10-17 09:08 | Outpatient (REF) | payer OTHER, SELFPAY ==
--- NOTE | ~2024-10-17 | XR_ITS ---
EXAMINATION: XR CERVICAL SPINE FLEXION EXTENSION HISTORY: M54.2 - Cervicalgia COMPARISON: There are no prior studies available for comparison. FINDINGS: AP, neutral, flexion, and extension lateral, and open-mouth odontoid views of the cervical spine are submitted. Osseous mineralization is normal. Seven cervical vertebral bodies are identified maintaining normal height and alignment without evidence of fracture or subluxation. The intervertebral disc spaces are preserved. There is no abnormal motion with flexion or extension. The odontoid and lateral masses of C1 are intact. There is no prevertebral soft tissue swelling. XR/XR cervical spine w flex/ext IMPRESSION: Unremarkable examination of the cervical spine. There is no abnormal motion with flexion or extension. Electronically signed by: Michel Beard MD 10/17/2024 09:38 AM EDT
--- NOTE | ~2024-10-17 | XR_ITS ---
EXAMINATION: XR THORACIC SPINE 2 VIEWS HISTORY: M54.9 - Dorsalgia, unspecified COMPARISON: There are no prior studies available for comparison. FINDINGS: AP and lateral views of the thoracic spine are submitted. Osseous mineralization is normal. The vertebral bodies maintain normal height and alignment without evidence of fracture or subluxation. The intervertebral disc spaces are preserved. The visualized paraspinal soft tissues are unremarkable. XR/XR thoracic spine 2V IMPRESSION: Unremarkable examination of the thoracic spine. Electronically signed by: Michel Beard MD 10/17/2024 09:43 AM EDT
--- OUTSIDE RECORDS SUMMARY | 2024-10-17 09:31 | XMS_ITS | Clinical Summary ---
Author Organization [facility] [address] [place] [address] [place] [phone] Phone Care Team Providers Care Security Threat Analyst Name Role Phone Dorys Tan MD Primary [...] hyperactive type 07/31/2024 Overview (07/31/2024): 07/2024: Sees [facility] (Lakisha March) POTS (postural orthostatic tachycardia syndrome) [...] 9:00 AM EDT Office Visit Adult Medicine [facility] [address] [place] [address] Niki Mckeon PA Routine general medical examination at a health care facility (Primary Dx); Attention deficit hyperactivity disorder (ADHD), predominantly hyperactive type; POTS (postural orthostatic tachycardia syndrome); Recent urinary tract infection; Screening for cardiovascular condition; Encounter for screening involving social determinants of health (SDoH) [Z13.9] 07/24/2024 2:19 PM EDT - 07/24/2024 11:59 PM EDT Hospital Encounter [facility] Xray [address] [place] [address] Syncope and collapse Discharge Disposition: Home or Self Care from Last 3 Months Immunizations Name Administration Dates Next Due DTaP (Infanrix) 6wks to less than 7yo ,02/25/1994,07/03/1993,02/09 [id number] (Pentacel) 2mo to less than 5yo 02/09/1993 [...] disorder (ADHD), predominantly hyperactive type 07/31/202407/2024: Sees [facility] POTS (postural orthostatic tachycardia syndrome) 07/31/2024 Family [...] care for your loved ones. For example, childhood teacher or elderly care for an older adult? [...] 11:00 AM EDT Appointment Radiology Department - [address] [phone] 02/05/2025 10:00 AM EST Office Visit Obstetrics and Gynecology - [address] [phone] Chikis Lott, [address] 07/31/2025 3:00 PM EDT Office Visit Adult Medicine East - [address] [phone] Niki Mckeon PA [address] [place], [place] Health Maintenance Due Date Last Done [...] mg/dL LAB CHEMISTRY METHOD 08/01/2024 1:31 PM [facility] Triglycerides 48 0 - 150 mg/dL LAB CHEMISTRY METHOD 08/01/2024 1:31 PM [facility] HDL 65 >=40 mg/dL LAB CHEMISTRY METHOD 08/01/2024 1:31 PM [facility] LDL Calculated 112(H) 0 - 100 mg/dL LAB CHEMISTRY METHOD 08/01/2024 1:31 PM [facility] VLDL Cholesterol Nathaniel 9.6 mg/dL LAB CHEMISTRY METHOD 08/01/2024 1:31 PM [facility] Non HDL Chol. (LDL+VLDL) 122 <145 mg/dL LAB CHEMISTRY METHOD 08/01/2024 1:31 PM [facility] Chol/HDL Ratio 2.9 0.0 - 4.4 LAB CHEMISTRY METHOD 08/01/2024 1:31 PM [facility] Blood Venous blood specimen / Unknown Venipuncture / Unknown 08/01/2024 9:30 AM EDT 08/01/2024 9:30 AM EDT us Niki ARCEO LAB BLOOD ORDERABLES Final Resu lt [facility] [address] [place] [address], [place] [phone] * (ABNORMAL) CBC auto differential (08/01/2024 9:30 AM EDT) [facility] WBC 4.1(L) 4.8 - 10.8 K/mcL LAB HEMETOLOGY METHOD 08/01/2024 12:12 PM EDT [facility] RBC 3.90 3.80 - 4.80 M/mcL LAB HEMETOLOGY METHOD 08/01/2024 12:12 PM EDT [facility] Hemoglobin 11.7 11.5 - 16.0 g/dL LAB HEMETOLOGY METHOD 08/01/2024 12:12 PM EDT [facility] Hematocrit 36.7 35.0 - 47.0 % LAB HEMETOLOGY METHOD 08/01/2024 12:12 PM EDT [facility] MCV 94.8 79.0 - 98.0 FL LAB HEMETOLOGY METHOD 08/01/2024 12:12 PM EDT [facility] MCH 30.2 27.0 - 32.0 pcg LAB HEMETOLOGY METHOD 08/01/2024 12:12 PM EDT [facility] MCHC 31.9(L) 32.0 - 37.0 g/dL LAB HEMETOLOGY METHOD 08/01/2024 12:12 PM EDT [facility] RDW 13.4 11.0 - 15.0 % LAB HEMETOLOGY METHOD 08/01/2024 12:12 PM EDT [facility] Platelets 272 130 - 400 K/mcL LAB HEMETOLOGY METHOD 08/01/2024 12:12 PM EDT [facility] MPV 10.7 7.0 - 11.0 FL LAB HEMETOLOGY METHOD 08/01/2024 12:[facility] NRBC 0.0 <1.0 % LAB HEMETOLOGY METHOD 08/01/2024 12:12 PM [facility] NRBC Absolute 0.00 <0.10 K/mcL LAB HEMETOLOGY METHOD 08/01/2024 12:12 PM [facility] Neutrophils Relative 55.4 % LAB HEMETOLOGY METHOD 08/01/2024 12:12 PM [facility] Lymphocytes Relative 33.1 % LAB HEMETOLOGY METHOD 08/01/2024 12:12 PM [facility] Monocytes Relative 8.7 % LAB HEMETOLOGY METHOD 08/01/2024 12:12 PM [facility] Eosinophils Relative 1.9 % LAB HEMETOLOGY METHOD 08/01/2024 12:12 PM [facility] Basophils Relative 0.7 % LAB HEMETOLOGY METHOD 08/01/2024 12:12 PM [facility] Immature Granulocytes Relative 0.2 % LAB HEMETOLOGY METHOD 08/01/2024 12:12 PM [facility] Neutrophils Absolute 2.29 1.50 - 7.00 K/mcL LAB HEMETOLOGY METHOD 08/01/2024 12:[facility] Lymphocytes Absolute 1.37 1.00 - 5.00 K/mcL LAB HEMETOLOGY METHOD 08/01/2024 12:[facility] Monocytes Absolute 0.36 0.20 - 1.00 K/mcL LAB HEMETOLOGY METHOD 08/01/2024 12:12 PM [facility] Eosinophils Absolute 0.08 0.00 - 0.50 K/mcL LAB HEMETOLOGY METHOD 08/01/2024 12:12 PM EDT [facility] Basophils Absolute 0.03 0.00 - 0.20 K/[facility] LAB HEMETOLOGY METHOD 08/01/2024 12:12 PM EDT [facility] Immature Granulocytes Absolute 0.01 0.00 - 0.03 K/[facility] LAB HEMETOLOGY METHOD 08/01/2024 12:12 PM EDT [facility] Blood Venous blood specimen / Unknown Venipuncture / Unknown 08/01/2024 9:30 AM EDT 08/01/2024 9:30 AM EDT Niki ARCEO LAB BLOOD ORDERABLES Final Resu lt Performing Organization Address City/[facility]/ZIP Co de Phone Number [facility] [address] [place] [address], [place] [phone] * Culture urine (08/01/2024 9:30 AM EDT) Pathologist [facility] Culture, Urine No growth 08/02/2024 11:26 AM EDT [facility] Urine Urine specimen obtained by clean catch procedure / Unknown Non-blood Collection / Unknown 08/01/2024 9:30 AM EDT 08/01/2024 9:30 AM EDT Niki ARCEO LAB MICROBIOLOGY - GENERAL ORDE RABLES Final Result [facility] [address] [place] [address], [place] [phone] * (ABNORMAL) Comprehensive metabolic panel (08/01/2024 9:30 AM EDT) Sodium 136 133 - 145 mmol/L LAB CHEMISTRY METHOD 08/01/2024 1:23 PM EDT [facility] Potassium 4.0 3.5 - 5.5 mmol/L LAB CHEMISTRY METHOD 08/01/2024 1:23 PM [facility] Chloride 103 96 - 110 mmol/L LAB CHEMISTRY METHOD 08/01/2024 1:23 PM [facility] CO2 25 21 - 32 mmol/L LAB CHEMISTRY METHOD 08/01/2024 1:23 PM [facility] Anion Gap 8 3 - 11 LAB CHEMISTRY METHOD 08/01/2024 1:23 PM [facility] Glucose 92 70 - 100 mg/dL LAB CHEMISTRY METHOD 08/01/2024 1:23 PM [facility] BUN 6 5 - 25 mg/dL LAB CHEMISTRY METHOD 08/01/2024 1:23 PM [facility] Creatinine 0.73 0.50 - 1.10 mg/dL LAB CHEMISTRY METHOD 08/01/2024 1:23 PM [facility] eGFR 113 >=60 mL/min/1. 73m2 LAB CHEMISTRY METHOD 08/01/2024 1:23 PM [facility] Comment:Calculation based on the Chronic Kidney Disease Epidemiology Collaboration (CKD-EPI) equation refit without adjustment for race. BUN/Creatinine Ratio 8.2 LAB CHEMISTRY METHOD 08/01/2024 1:23 PM [facility] Calcium 9.2 8.5 - 10.5 mg/dL LAB CHEMISTRY METHOD 08/01/2024 1:23 PM [facility] AST (SGOT) 8(L) 10 - 42 unit/L LAB CHEMISTRY METHOD 08/01/2024 1:23 PM [facility] ALT (SGPT) 14 10 - 60 unit/L LAB CHEMISTRY METHOD 08/01/2024 1:23 PM [facility] Alkaline Phosphatase 53 42 - 121 unit/L LAB CHEMISTRY METHOD 08/01/2024 1:23 PM [facility] Total Protein 7.2 6.0 - 8.0 g/dL LAB CHEMISTRY METHOD 08/01/2024 1:23 PM EDT [facility] Albumin 4.0 3.2 - 5.0 g/dL LAB CHEMISTRY METHOD 08/01/2024 1:23 PM EDT [facility] Total Bilirubin 0.5 0.0 - 1.4 mg/dL LAB CHEMISTRY METHOD 08/01/2024 1:23 PM EDT [facility] Blood Venous blood specimen / Unknown Venipuncture / Unknown 08/01/2024 9:30 AM EDT 08/01/2024 9:30 AM EDT us Niki ARCEO LAB BLOOD ORDERABLES Final Resu lt [facility] [address] [place] [address], [place] [phone] * Tilt table (07/24/2024 2:46 PM EDT) [...] with findings consistant with orthostatic hypotension. Result [facility] Chris Mills MD CV CARDIAC SERVICES PROCEDURES F inal Result * Depression Screening (11/29/2023) [facility] Depression Screening abstracted Result [facility] Provider HEALTH MAINTENANCE Final Result * Cervical Cancer Screening: HPV (03/10/2023) [facility] Cervical Cancer Screening: HPV negative, abstracted Result [facility] Provider HEALTH MAINTENANCE Final Result * HIV Screening (09/22/2020) [facility] HIV Screening abstracted Result [facility] Provider HEALTH MAINTENANCE Final Result * Hepatitis C Screening (09/22/2020) [facility] Hepatitis C Screening abstracted Result [facility] Provider HEALTH MAINTENANCE Final Result from Last 3 Months or Most Recently Relevant to Health Maintenance [facility] [place] [phone] Care Teams Security Threat Analyst Relationship Specialty Start Date End Date Dorys Tan MD [address] [place] [id number] PCP - General Internal Medicine 12/10/21
== END 2024-10-17 09:09 | disposition home or self-care (01) ==
LOC: HO.HMGCX 09:08
PROVIDERS: PCP Internal Medicine; Visit Provider Nurse Practitioner Family
DX: M54.2 Cervicalgia (principal); M54.9 Dorsalgia, unspecified; M40.203 Unspecified kyphosis, cervicothoracic region
CPT/HCPCS: 72052; 72070

== ENCOUNTER → 2024-10-17 09:11 | Outpatient (BNV) | payer OTHER, SELFPAY | PROVIDERS: PCP Internal Medicine; Visit Provider Radiology Diagnostic Radiology | DX: M54.2 Cervicalgia (principal); M54.6 Pain in thoracic spine | CPT/HCPCS: 72052; 72070 ==

== ENCOUNTER 2024-11-12 14:04 | Outpatient (AMB) | payer OTHER, SELFPAY ==
[2024-11-12 14:08] VITALS: BP 118/60; PULSE 97; BMI 22.4
--- NOTE | 2024-11-12 14:08 | MHC.OFFVIS ---
Vital Signs 11/12/24 14:08 Height 5 ft 5 in Weight 134 lb 7.712 oz BMI 22.4 BP 118/60 Blood Pressure Location Lt brachial Position Sitting Pulse 97 Pulse Source Pulse Oximeter Intake Visit Reasons: 3 months Accompanied by: Self / Same As Patient Allergies Sulfa (Sulfonamide Antibiotics) Allergy (Intermediate, Verified 11/12/24 14:11) Swelling Medication List - Last Reconciled 11/12/24 by Mercedes Razo, STARCH COOKER-C dextroamphetamine-amphetamine 10 mg (Adderall) 10 mg PO TID HPI HPI 3 months: Details: Keily is a 33-year-old female with past medical history of presyncope, syncope with newer finding of orthostatic hypotension/dysautonomia who was instructed on conservative management and now presents for follow-up. Today she reports that she continues to have episodes of lightheadedness especially when in an upright position. She feels rapid heart beating at the same time. She gets a closing in of her vision and will need to sit down and wait for it to pass. She has not had any recent syncope. Some days she feels well and other days she is more symptomatic without clear pattern. She has been increasing her fluid intake, taking salt tablets and wearing compression stockings when able. She says she has been experiencing symptoms like this since age 18. She has seen a neurologist and no different treatment options were started. She is expressing concern about ongoing future with this problem and is reluctant to start on medications at this time. REPLACED BY [facility] Medical History Patient denies medical problems Family History Mother No problems noted. Father No problems noted. Social History Alcohol intake: current Alcohol intake frequency: holidays/special occasions only Patient Tobacco Use Status: Never used Tobacco Review of Systems Const Details: episodes of tachycardia and lightheadedness All systems reviewed & are unremarkable except as noted in HPI and below Denies daytime sleepiness, Denies difficulty sleeping, Denies snoring, Denies stops breathing during sleep and Denies weakness Card Denies chest pain, Reports rapid heart rate, Denies irregular heart rhythm, Denies claudication, Denies leg edema, Reports lightheadedness, Denies palpitations, Denies dyspnea, Denies dyspnea on exertion, Denies orthopnea, Denies paroxysmal nocturnal dyspnea and Denies slow heart rate Resp Denies cough, Denies dyspnea, Denies dyspnea on exertion and Denies snoring GI Reports no additional complaints, Denies hematochezia, Denies change in stool character and Denies dyspepsia Musc Denies abnormal gait, Denies muscle weakness and Denies numbness Neuro Denies abnormal gait, Denies numbness and Denies weakness Endo Denies palpitations Physical Exam Vital Signs: Last Vital Signs Pulse 97 11/12/24 14:08 BP 118/60 11/12/24 14:08 BMI result Body Mass Index 22.4 Const General: cooperative, healthy appearing, comfortable and no acute distress Orientation/consciousness: patient oriented x3 Neck Neck: Yes normal visual inspection and Yes no JVD Resp Effort & Inspection: normal respiratory effort and able to speak in complete sentences Cardio Rate: regular rate Rhythm: regular rhythm Heart sounds: S1 normal heart sound present and S2 normal heart sound present Neuro General: patient oriented x3 Extrem General: Yes normal to inspection Psych Appearance: grossly normal Mental Status: mental status grossly normal Speech and movement: Normal speech and movement present Assessment & Plan Assessment & Plan (1) Syncope: Comment: Tilt-table test consistent with orthostatic hypotension Code(s): R55 - Syncope and collapse Category: Medical Qualifiers: Syncope type: unspecified Qualified Code(s): R55 - Syncope and collapse Plan: History of syncope and presyncope, with history of lightheadedness on position changes. Cardiac evaluation with EKG 06/06/2024 showing sinus rhythm with short TX, rate 70. Holter monitor done 06/27/2024 for 6 days showed sinus rhythm with average heart rate 79 beats per minute, no significant arrhythmia or pauses. Echocardiogram 06/27/2024 showed EF 60-65%, no valve abnormalities. A tilt-table test was done at [facility] on 07/24/2024 showing orthostatic hypotension. On last visit we discussed good hydration, liberal use of salt in her diet, compression stockings and these treatments have not improved her symptoms overall. I did discuss trial of either midodrine to help treat hypotension or metoprolol to treat tachycardia and she is not interested in med management at this time. She will further investigate dysautonomia and notify me if she decides to try these medications. She will continue to follow directions previously given and call Cardiology for follow-up PRN. (2) Orthostatic hypotension: Code(s): I95.1 - Orthostatic hypotension Category: Medical Plan: As above (3) Brain fog: Comment: DDx includes migraine, vestibular migraine, ADHD, vascular d/o. Code(s): R41.89 - Other symptoms and signs involving cognitive functions and awareness Category: Medical Plan: Follows with neurology Plan Time spent on chart review, documentation, interview and assessment Coding Level of Care Code Est Pt Level 3 (24349) Complex EM visit Add On G2211 Diagnoses Syncope, unspecified syncope type R55 Syncope type: unspecified Orthostatic hypotension I95.1 Brain fog R41.89 Time Spent (min) 22
--- OUTSIDE RECORDS SUMMARY | 2024-11-12 16:26 | XMS_ITS | Clinical Summary ---
Author Organization [facility] [address] [place] [address] [place] [phone] Phone Care Team Providers Care Signal Timer Name Role Phone Dorys Tan MD Primary [...] hyperactive type 07/31/2024 Overview (07/31/2024): 07/2024: Sees [facility] (Lakisha March) POTS (postural orthostatic [...] medical oncology. GERD (gastroesophageal reflux disease) 5 Immunizations Name Administration Dates Next Due DTaP (Infanrix) 6wks to less than 7yo ,02/25/1994,07/03/1993,02/09 [id number] (Pentacel) 2mo to less than 5yo 02/09/1993 [...] disorder (ADHD), predominantly hyperactive type 07/31/202407/2024: Sees [facility] POTS (postural orthostatic tachycardia syndrome) [...] Record ed Within the last 3 months, radha samuel many times did you visit the emergency [...] care for your loved ones. For example, children's tutor or elderly care for an older adult? [...] Team (Late st Contact Info) Description 12/01/2024 10:50 AM EDT Appointment Radiology Department - [address] [phone] 02/05/2025 10:00 AM EST Office Visit Obstetrics and Gynecology - [address] [phone] Chikis Lott, [facility] [address] [place] [address] 07/31/2025 3:00 PM EDT Office Visit [facility] - [address] [phone] Niki Mckeon PA [address] [place] [address] Health Maintenance Due Date Last Done Comments [...] Procedure Name Priority Date/Time Associated Diagnosis Comments EXTERNAL XRAY REPORT Routine 10/17/2024 3:35 PM EDT EXTERNAL XRAY REPORT Routine 10/17/2024 11:43 AM EDT LIPID PANEL WITH REFLEX TO DIRECT LDL Routine 08/01/2024 9:30 AM EDT Screening for cardiovascular condition DEPRESSION SCREENING Routine 11/29/2023 HPV Routine 03/10/2023 HEPATITIS C SCREENING Routine 09/22/2020 HIV SCREENING Routine 09/22/2020 from Last 3 Months or Most Recently Relevant to Health Maintenance Results * External Xray Report (10/17/2024 3:35 PM EDT) Only the most recent of2 resultswithin the time period is included. Anatomical Region Laterality Modality Radiographic Rbittany ging us Historical Provider MD COLLAZO XR PROCEDURES Final R esult * (ABNORMAL) Lipid panel with reflex to direct LDL (08/01/2024 9:30 AM EDT) Cholesterol 187 0 - 200 mg/dL LAB CHEMISTRY METHOD 08/01/2024 1:31 PM EDT [facility] Triglycerides 48 0 - 150 mg/dL LAB CHEMISTRY METHOD 08/01/2024 1:31 PM EDT [facility] HDL 65 >=40 mg/dL LAB CHEMISTRY METHOD 08/01/2024 1:31 PM EDT [facility] LDL Calculated 112(H) 0 - 100 mg/dL LAB CHEMISTRY METHOD 08/01/2024 1:31 PM EDT [facility] VLDL Cholesterol Nathaniel 9.6 mg/dL LAB CHEMISTRY METHOD 08/01/2024 1:31 PM EDT [facility] Non HDL Chol. (LDL+VLDL) 122 <145 mg/dL LAB CHEMISTRY METHOD 08/01/2024 1:31 PM EDT [facility] Chol/HDL Ratio 2.9 0.0 - 4.4 LAB CHEMISTRY METHOD 08/01/2024 1:31 PM EDT [facility] Blood Venous blood specimen / Unknown Venipuncture / Unknown 08/01/2024 9:30 AM EDT 08/01/2024 9:30 AM EDT Niki ARCEO LAB BLOOD ORDERABLES Final Resu lt [facility] [address] [place] [address], * Depression Screening (11/29/2023) [facility] Depression Screening abstracted Historical Provider HEALTH MAINTENANCE Final Result * Cervical Cancer Screening: HPV (03/10/2023) [facility] Cervical Cancer Screening: HPV negative, abstracted Historical Provider HEALTH MAINTENANCE Final Result * HIV Screening (09/22/2020) [facility] HIV Screening abstracted Historical Provider HEALTH MAINTENANCE Final Result * Hepatitis C Screening (09/22/2020) Hepatitis C Screening abstracted Historical Provider HEALTH MAINTENANCE Final Result from Last 3 Months or Most Recently Relevant to Health Maintenance Insurance [facility] Care Teams Signal Timer Relationship Specialty Start Date End Date Dorys Tan MD [address] [place] [phone] PCP - General Internal Medicine 12/10/21
== END 2024-11-12 14:45 | disposition home or self-care (01) ==
LOC: HO.HCS 14:05
PROVIDERS: PCP Internal Medicine; Visit Provider Nurse Practitioner Family
DX: R55 Syncope and collapse (principal); I95.1 Orthostatic hypotension; R41.89 Other symptoms and signs involving cognitive functions and awareness
CPT/HCPCS: 99213; G2211

== ENCOUNTER → 2024-12-21 18:32 | Outpatient (BNV) | payer OTHER, SELFPAY | PROVIDERS: PCP Internal Medicine; Visit Provider Radiology Diagnostic Radiology | DX: M40.203 Unspecified kyphosis, cervicothoracic region (principal) | CPT/HCPCS: 72141; 72146 ==

== ENCOUNTER 2024-12-21 18:36 | Outpatient (REF) | payer OTHER, SELFPAY ==
--- NOTE | ~2024-12-21 | MR_ITS ---
CLINICAL HISTORY: M40.203 - Unspecified kyphosis, cervicothoracic region MR thoracic spine without gadolinium Comparison: None provided Findings: Normal alignment. No acute fracture or pathologic bone lesion. Unremarkable thoracic cord. No significant spinal canal or foraminal stenoses. No significant degenerative change. Paraspinous musculature intact. IMPRESSION: No acute findings. This document has been electronically signed by: Paola Quinn MD on 12/24/2024 16:49:31
--- NOTE | ~2024-12-21 | MR_ITS ---
CLINICAL HISTORY: M40.203 - Unspecified kyphosis, cervicothoracic region --- Additional Notes or Special Instructions: please assess for indications of cranial-cervical instability MR cervical spine without gadolinium Comparison: None provided Findings: Vertebral alignment is within normal limits. Minimal degenerative changes at C1-C2, otherwise no significant degenerative changes. No acute findings on limited view of the intracranial contents. No cervical fluid collections or masses. The cervical spinal cord is normal in signal and caliber. IMPRESSION: Minimal degenerative change at C1-C2, otherwise normal. This document has been electronically signed by: Yusuf Molina MD on 12/25/2024 13:43:56
== END 2024-12-21 18:37 | disposition home or self-care (01) ==
LOC: HO.MRI 18:36
PROVIDERS: PCP Internal Medicine; Visit Provider Nurse Practitioner Family
DX: M40.203 Unspecified kyphosis, cervicothoracic region (principal); M54.2 Cervicalgia; M54.9 Dorsalgia, unspecified; G43.009 Migraine without aura, not intractable, without status migrainosus
CPT/HCPCS: 72141; 72146

== ENCOUNTER 2025-01-01 09:06 | Outpatient (AMB) | payer OTHER, SELFPAY ==
--- NOTE | 2025-01-01 09:07 | MHC.OFFVISPS ---
Intake Intake Visit Reasons: f/u consultation [employer] Associate Required: No Allergies Sulfa (Sulfonamide Antibiotics) Allergy (Intermediate, Verified 11/12/24 14:11) Swelling Medication List - Last Reconciled 01/01/25 by Lakisha Bruce APRN dextroamphetamine-amphetamine 10 mg (Adderall) 10 mg PO TID HPI- Psychiatric Chief Complaint: f/u consultation HPI Narrative: pt reports she is responding well to the adderall 10 mg. Although she reports that at times the brand changes from pharmacy have had different levels of efficacy. She reports headaches from the brand GRANULES. She starts her day at 5am and feels the adderall is helpul for her to remember everything to get out the door on time each work day. She has found that if she takes the adderall after 2pm she can have some trouble falling and staying asleep. She is working on self care. She denies SI or HI. she is functioning well at home and work. She talked about some conflict in exxtended family and feeling at a loss of how to handle it. TW recommended couples counseling to work together to manage it with hope to maintain close relationship with family Past Psychiatric History: none Subjective Subjective Subjective Medication Compliance: Yes Side effects from medications: No Review of Systems Medical Review of Systems: unchanged Mental Status Exam Mental Status Exam Patient Appearance: Well Grooomed and Appropriate Patient Orientation: Person, Place, Time and Situation Level of Consciousness: Awake, Appropriate and Alert Patient Behavior: Appropriate, Cooperative and Good Eye Contact Mood Description: Cheerful and Anxious Affect Description: Cheerful and Anxious Patient Cognition Impaired: No Ability to Follow Directions: Good Speech Pattern: Clear Memory Description: Intact Hallucinations: None Delusions: Not Present Thought Process: Intact Thought Content: positive for Intact Judgement: Good Assessment and Plan Assessment & Plan (1) ADHD (attention deficit hyperactivity disorder): Status: Acute Qualifiers: Attention deficit-hyperactivity disorder type: combined inattentive-hyperactive Qualified Code(s): F90.2 - Attention-deficit hyperactivity disorder, combined type Code(s): F90.9 - Attention-deficit hyperactivity disorder, unspecified type Plan continue adderall 10mg tid strongly encourage couple's therapy return in 2 months and then refer back to neurology labs reordered TSH b12 b1, b6 levels Medications: Refilled dextroamphetamine-amphetamine 10 mg (Adderall) administer doses at least 4-6 hours apart; Partial Fill upon patient request. 10 mg PO TID 90 tabs 0RF F90.2 - Attention-deficit hyperactivity disorder, combined type Counseling and coordination of Care Pt. Self Management counseling: Nutrition education and improvement, Sleep hygiene, Cognitive restructuring and General coping skills Medication management counseling: Effectiveness, Side effects, Dosing range, Duration, Drug interaction and Adherence Diagnosis and Prognosis Counseling: Accuracy of diagnosis, Prognosis over time, Impact of diagnosis on life functions, Impact of family relationship, Problematic behaviors secondary to diagnosis and Adequacy of current interventions Details: I spent 45 minutes reviewing the record, seeing the patient and documenting in the medical record. Counseling provided to the patient/caregiver as outlined below. Addressed patient/caregiver concerns regarding current medication regime including effective adherence. Addressed patient/caregiver concerns regarding diagnosis and prognosis including accuracy of diagnosis, prognosis over time, impact of diagnosis. Addressed patient/caregiver concerns regarding impact of recent stressors. [facility] Medical History Patient denies medical problems Family History Mother No problems noted. Father No problems noted. 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 Grew up mostaly with grandmother as parents had addiction issues; she and her younger sister went to foster care off and on. She and sister spent 2 yrs in foster care until pt turned 20 and then she took custody of her younger sister. she also has 2 older sister one of whom recently from metastatic breast cancer. Substance History: none Trauma History: yes childhood Coding Level of Care Code Est Pt Level 3 (89811) Therapy 30m w/E&M (18750) Diagnoses Attention deficit hyperactivity disorder (ADHD), combined type F90.2 Attention deficit-hyperactivity disorder type: combined inattentive-hyperactive
== END 2025-01-01 09:52 | disposition home or self-care (01) ==
LOC: HO.HOP 09:06
PROVIDERS: PCP Internal Medicine; Visit Provider Clinical Nurse Specialist Psychiatric/Mental Health
DX: F90.2 Attention-deficit hyperactivity disorder, combined type (principal)
CPT/HCPCS: 90833; 99213

== ENCOUNTER 2025-01-28 09:37 | Outpatient (AMB) | payer OTHER, SELFPAY ==
--- NOTE | 2025-01-28 09:34 | A.OFFVIS_ITS ---
Vital Signs 01/28/25 09:34 Height 5 ft 5 in Intake Visit Reasons: 6 Months F/U Hemp Fiber Taker Off Required: No Accompanied by: Self / Same As Patient Allergies Sulfa (Sulfonamide Antibiotics) Allergy (Intermediate, Verified 11/12/24 14:11) Swelling Medication List - Last Reconciled 01/28/25 by Bárbara Faria, ESTIMATING ENGINEER dextroamphetamine-amphetamine 10 mg (Adderall) 10 mg PO TID HPI Comments Details: Right-handed 3-year-old female presents for follow-up of headache, bring fog, and she is She has started Adderall, which has helped her brain fog. She states that the psychiatric provioder will be requesting us to manage her meds after her next and final visit w/ them. She is still following w/ cardiology. She is taking approx 90 fld oz of H2o per day. 12/24/2024, MRI Thoracic: No acute findings. 12/24/2024, MRI Cervical Spine: Minimal degenerative change at C1-C2, otherwise normal. She reports she is most bothered by mid-lower neck, which moves into her shoulders, feels deep in the shoulders. She feels generally weaker, but does not do strength training. She did PT about a year ago with some benefit, and she has been doing stretching and massage which can help some. She has an appt w// physiatry next month. She has not had a bad pressure headache in a while. However, she does notice some headache if she stretches or sits at her desk for too long. Now the headache passes after an hour. 07/26/2024, HPI: Patient reports overall she is having less headaches and brain fog. Now having about 3 headache days per week. Pt reports she did not try the sumatriptan, as she was scared to try a new medication. She is curious about the overlap between possible POTS diagnosis, and migraine and Yakelin-Danlos syndrome. She notes flexibility in her fingers and hands. She always has neck and back tightness. States she is unable to touch the floor with her hands due to back tightness. Since last visit, she has seen Cardiology and underwent transthoracic echocardiogram which was normal. Six day Holter monitor was within normal limits. More recently, she underwent tilt-table test, results of which demonstrated orthostatic hypotension. She was advised by the performing cardiac FLOOR ASSOCIATE to increase her oral sodium intake. However, she is not quite sure how to do this. And she generally does not like taking salt. She does try to drink fluids before and during showers for as she can becoming lightheaded in the shower. She generally does not like to wear socks, but is open to considering wearing compression socks. She had ophthalmology evaluation, could not find an objective finding to explain her perceived visual field defect. They suggested patient use Systane eye drops, and placed a referral to neuro scientific investigator to Dr. Rhoades in [place]. 01/12/2024, initial HPI: Right-handed 33-yr-old female presents for new pt evaluation of headache and brain fog. Pt reports she has had episodes of brain fog, poor recall, forgetfulness. The brain fog started about a year after having mild case of Covid-19 in Feb 2020. She has always been a prone to forgetfulness. The brain fog does not occur every day. Often feels that she cannot think, has run out of battery by the end of the day. She forgets why she went into a room, has poor time management, is always late, procrastinates- her whole life. 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 Started an associate's program- did not finish, ? difficulty focusing. Also reports her left eye became worse over a year period- saw an scientific investigator at [facility], who dx'd dry eye. Pt reports that this has not improved. Her most bothersome symptoms are brain fog, forgetfulness, and back pain. 2022 Brain MRI w/wo- unremarkable Rheumatology work-up- labs and x-rays were normal. Was referred to cardiology- but missed appt. She also endorses constant phonophobia. When she the brain fog- has episodes of retroorbital or temporal mild sharp shooting pains She has a pressure headache about once a week which lasts until she goes to sleep, a/w eyes feel straining, photophobia, more phonophobia, overall tiredness. Bending over exacerbates head pressure and causes runny nose. She always feels off-balance. She has had a couple of syncope- states she knew she was about to pass out. She had stood up to take her dog out in the middle of the night- started sweating, ear ringing, f/b passing out for a brief moment (still felt like she was thinking)- denies interictal tongue biting or loss of spincter control. Denies b eing ill prior to the syncopal event. She has had other episodes of feeling near syncopal, which resolve with sitting down. She also endorses anemia. She works in [employer] in [employer]. PMH and ROS are notable for:? General: anemia, purplish/blue extremities Musculoskeletal disorders or injury: neck and back pain. feeling of hair tied around her left 3rd toe. easily prone to limb falling asleep if limb compressed. Mood d/o: Anxiety History of syncope GI d/o: GERD, diarrhea alternating w/ constipation. Had stool sample for OP- neg. 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 History of concussion/head injury, Respiratory d/o, CV disease, Clotting or hematology d/o, Endocrine d/o, metabolic d/o. History of seizure. Family history of similar s/s [facility] Medical History Patient denies medical problems Family History Mother No problems noted. Father No problems noted. Social History Alcohol intake: current Alcohol intake frequency: holidays/special occasions only Patient Tobacco Use Status: Never used Tobacco Physical Exam Const Orientation/consciousness: patient oriented x3 Resp Effort & Inspection: normal respiratory effort and able to speak in complete sentences Neuro General: patient oriented x3 Cognition (Neuro): normal cognition Gait exam (Neuro): Normal gait present Motor exam (neuro): 5/5 motor strength present throughout Psych Appearance: grossly normal Mental Status: mental status grossly normal Affect: normal affect Attitude: cooperative Thought process: Normal thought process present Telehealth Telehealth Telehealth Platform: [employer] Location of provider rendering services: practice address Location of patient: address on file Patient Identification confirmed using: Name, : Yes Telehealth method: video Patient verbally consented to treatment: Yes Patient verbally consented to billing insurance company: Yes Patient informed of any privacy concerns related to visit: Yes Minutes spent on Phone/Video with Pt.: 22 Assessment & Plan Assessment & Plan (1) Migraine without aura: Code(s): G43.009 - Migraine without aura, not intractable, without status migrainosus Category: Medical Qualifiers: Status migrainosus presence: without status migrainosus Intractability: not intractable Qualified Code(s): G43.009 - Migraine without aura, not intractable, without status migrainosus (2) Syncope: Comment: Tilt-table test consistent with orthostatic hypotension Code(s): R55 - Syncope and collapse Category: Medical Qualifiers: Syncope type: unspecified Qualified Code(s): R55 - Syncope and collapse (3) Brain fog: Comment: DDx includes migraine, vestibular migraine, ADHD, vascular d/o. Code(s): R41.89 - Other symptoms and signs involving cognitive functions and awareness Category: Medical (4) Cervicalgia: Code(s): M54.2 - Cervicalgia Category: Medical (5) Kyphosis: Code(s): M40.209 - Unspecified kyphosis, site unspecified Category: Medical Qualifiers: Kyphosis type: unspecified Spinal region: cervicothoracic Qualified Code(s): M40.203 - Unspecified kyphosis, cervicothoracic region (6) Decreased vision of left eye: Code(s): H54.62 - Unqualified visual loss, left eye, normal vision right eye Category: Medical Plan Follow-up with cardiology as scheduled. Continue increased oral sodium intake, including measuring daily sodium content for trying OTC sodium tabs, such as Thermotabs. Continue to take fluids prior to shower. Consider trying to wear compression socks. Follow-up with Ophthalmology as scheduled. Continue Adderall Follow-up with psychiatry as scheduled- we can manage her Adderall per psychiatrist's recommendation For cervicalgia: Reviewed T-spine and C-spine, showed only a mild degenerative changes at C1-C2 Physiatry consult as scheduled We will request PT eval and treat For overall management: * Optimize good self-care, including but not limited to maintaining a healthy diet, adequate fluid intake, adequate sleep, and engaging in regular physical activity. * Track headaches/brain fog/syncopal s/s, especially after any treatment regimen changes. Voxel is one of many headache tracking apps. * Information shared on non-pharmacological interventions which may help to alleviate headache attack burden. For light sensitivity: Patient may benefit from trying blue light filtering glasses, green glasses orlight tx. For sound sensitivity: Patent may benefit from trying noise cancellation ear plugs. For acute headache treatment: It is important to take acute medications at the first sign of headache, however avoid taking acute medication 1 in 2-3 times per week. Ibuprofen 608 100 mg every 6-8 hours as needed Naproxen 442 500 mg every 12 hours as needed When needed, trial Sumatriptan 100mg tab, 1/2 - 1 tab (50-100mg) at onset of headache, may repeat in 2 hours. Max of 2 tabs (200mg) per 24 hours. May adjunct with OTC Tylenol 650mg q 4 hours, Ibuprofen 600mg q 6 hours, or Naproxen 440mg q 12 hrs prn. Potential adverse effects of triptans, include but are not limited to nausea, fatigue, chest tightness/tingling (usually passes within a few minutes), medication overuse headaches. Would like to see which of her s/s are triptan responsive. Additionally, patient may benefit from trialing neuromodulation device, such as cephaly or nerivio Previous acute migraine medication trials: none at this time Acute migraine medication contraindications: None at this time For headache prevention medication: Monitor for now, as patient is hesitant to add additional medications at this point. Previous migraine prevention medication trials: none at this time Migraine prevention medication contraindications: caution w/ anti-hypertensives d/t h/o syncope. Aimovig d/t possible Raynaud's or diminished peripheral circulation. We will follow-up upon review of above and plan for you to follow-up in clinic in 6 months or sooner as needed. Orders: Orders PT Evaluation and Treatment Today M40.203 - Unspecified kyphosis, cervicothoracic region, M54.2 - Cervicalgia, M54.9 - Dorsalgia, unspecified Coding Level of Care Code Tele Est Pt Level 4 (24044) Diagnoses Migraine without aura and without status migrainosus, not intractable G43.009 Status migrainosus presence: without status migrainosus Intractability: not intractable Syncope, unspecified syncope type R55 Syncope type: unspecified Brain fog R41.89 Cervicalgia M54.2 Kyphosis of cervicothoracic region, unspecified kyphosis type M40.203 Kyphosis type: unspecified Spinal region: cervicothoracic Decreased vision of left eye H54.62
--- OUTSIDE RECORDS SUMMARY | 2025-01-28 11:06 | XMS_ITS | Encounter Summary ---
Author Organization [facility] Address [address] [place] [address] Care Team Providers Care Hotel Yardperson Name Role Phone Dorys Tan MD Primary Care Prov ider Encounter Details Date Type Department Care Team ([facility] st Contact Info) Description 12/04/2024 Results Follow-Up Adult [address] [phone] Dorys Tan MD [address] [place], [place] Social History Tobacco Use Types Packs/Day Years Used Date Smoking Tobacco: Former Cigarettes 0.3 Q uit: 03/07/2014 Smokeless Tobacco: Never Alcohol [...] care for your loved ones. For example, director of early childhood education or elderly care for an older adult? [...] Date Recorded What is your living situation? Unrecognized valu e 07/31/2024 Comments No Sex and Gender Information Value Date Recorded Sex Assigned at Not on file Legal Sex Female 9:54 PM EST Gender Identity Not on file Sexual Orientation Not on file documented as of this encounter Plan of Treatment Upcoming Encounters Date Type Department Care Team (Late st Contact Info) Description 07/31/2025 3:00 PM EDT Office Visit Adult Medicine [facility] [address] [place] [address] Niki Mckeon PA [address] [place], [place] documented as of this encounter Visit Diagnoses Not on filedocumented in this encounter Care Teams Hotel Yardperson Relationship Specialty Start Date End Date Dorys Tan MD [address] [place] [phone] PCP - General Internal Medicine 12/10/21 documented as of this encounter
--- OUTSIDE RECORDS SUMMARY | 2025-01-28 11:06 | XMS_ITS | Clinical Summary ---
Author Organization [facility] [address] [place] [address] [place] [phone] Phone Care Team Providers Care Hydroelectric Plant Maintainer Name Role Phone Dorys Tan MD Primary [...] hyperactive type 07/31/2024 Overview (07/31/2024): 07/2024: Sees [facility] (Lakisha March) POTS (postural [...] Encounters Date Type Department Care Team Description 12/04/2024 Results Follow-Up Adult [facility] - [address] [phone] Dorys Almaraz MD 12/01/2024 10:50 AM EDT - 12/01/2024 11:59 PM EDT Hospital Encounter Radiology Department - [address] [phone] Encounter for screening mammogram for breast cancer Discharge Disposition: Home or Self Care from Last 3 Months Immunizations Immunization Administration Dates Next Due DTaP (Infanrix) 6wks to less than 7yo ,02/25/1994,07/03/1993,02/09 [id number] (Pentacel) 2mo to less than 5yo 02/09/1993 [...] disorder (ADHD), predominantly hyperactive type 07/31/202407/2024: Sees [facility] POTS (postural orthostatic tachycardia [...] Mother's side 1 Alive Mother's side 2 Mother's side 3 Mother's side 4 Paternal Grandfather Paternal Grandmother Sister 1 Sister 2 Alive Sister 3 Alive Social History Tobacco Use Types Packs/Day Years Used Date Smoking Tobacco: Former Cigarettes 0.3 Q uit: 03/07/2014 Smokeless Tobacco: Never Tobacco [...] care for your loved ones. For example, teacher early childhood development or elderly care for an older adult? [...] Sexual Orientation Not on file Obstetrics History Para Term AB IAB SAB Ectopic Multiple Livin g Live Births 1 1 1 1 Date Outcome GA Total Labor Labor/2nd/3rd Weight Sex Type Anes PTL Stefany A1 A5 Name Clin Term Last Filed Vital Signs Vital Sign Reading [...] 3:00 PM EDT Office Visit Adult Medicine [facility] [address] [place], [place] [phone] Niki Mckeon PA [address] [place], [place] Health Maintenance Due Date Last Done [...] Cholesterol Screening (Lipid Panel) 08/01/2029 08/01/2024, 04/15/2022 RSV Immunization Adult Patients (1 - 1-dose 75+ series) 11/28/2067 HIB Vaccines Aged Out 02/09/1993 No longer [...] Procedure Name Priority Date/Time Associated Diagnosis Comments MG MAMMO DIGITAL SCREENING W RAS BILAT Routine 12/01/2024 11:10 AM EDT Encounter for screening mammogram for breast cancer LIPID PANEL WITH REFLEX TO DIRECT LDL Routine 08/01/2024 9:30 AM EDT Screening for cardiovascular condition DEPRESSION SCREENING Routine 11/29/2023 HPV Routine 03/10/2023 HEPATITIS C SCREENING Routine 09/22/2020 HIV SCREENING Routine 09/22/2020 from Last 3 Months or Most Recently Relevant to Health Maintenance Results * MG Mammo Digital Screening w Ras bilat (12/01/2024 11:10 AM EDT) Anatomical Region Laterality Modality Breast Bilateral Mammography 12/04/2024 4:38 PM EDT Impressions 12/04/2024 4:47 PM EDT 1. No mammographic evidence of malignancy 2. Heterogeneous breast parenchyma BI-RADS CATEGORY: 2 - BENIGN RECOMMENDATION: Screening bilateral mammogram is recommended in 1 year. Patient may be eligible for screening breast MRI due to dense breasts and family history Mammo Location: [facility], [address] [place] [address], [phone], . -------- FINAL REPORT -------- Dictated By: See Ferris Dictated Date: 12/04/2024 16:38 ET Assigned Physician: See Ferris Reviewed and Electronically Signed By: See Ferris Signed Date: 12/04/2024 16:47 ET Workstation ID: [id number] Transcribed By: Self Edit Transcribed Date: 12/04/2024 16:38 ET Narrative 12/04/2024 4:47 PM EDT A BILATERAL DIGITAL 3D SCREENING MAMMOGRAPHY HISTORY: Routine screening. Family history of breast cancer in mother, sister and great aunt COMPARISON: Mammogram from 12/02/2023 Technique: Bilateral full field digital mammography (3D) was performed using standard CC and MLO projections CAD was used to evaluate this mammogram. FINDINGS: Right: No suspicious masses, groups of microcalcification or areas of architectural distortion identified. Stable typically benign parenchymal asymmetries. Left: No suspicious masses, groups of microcalcification or areas of architectural distortion identified. Stable typically benign parenchymal asymmetries. BREAST DENSITY: C - The breasts are heterogeneously dense which may obscure small masses. Procedure Note See Ferris MD - 12/04/2024 A BILATERAL DIGITAL 3D SCREENING MAMMOGRAPHY HISTORY: Routine screening. Family history of breast cancer in mother,sister and great aunt COMPARISON: Mammogram from 12/02/2023 Technique: Bilateral full field digital mammography (3D) was performedusing standard CC and MLO projections CAD was used to evaluate this mammogram. FINDINGS: Right: No suspicious masses, groups of microcalcification or areas ofarchitectural distortion identified. Stable typically benign parenchymalasymmetries. Left: No suspicious masses, groups of microcalcification or areas ofarchitectural distortion identified. Stable typically benign parenchymalasymmetries. BREAST DENSITY: C - The breasts are heterogeneously dense which mayobscure small masses. IMPRESSION: 1. No mammographic evidence of malignancy 2. Heterogeneous breast parenchyma BI-RADS CATEGORY: 2 - BENIGN RECOMMENDATION: Screening bilateral mammogram is recommended in 1 year. Patient may beeligible for screening breast MRI due to dense breasts and familyhistory Mammo Location: [facility], [address] [place] [address], [phone], . -------- FINAL REPORT -------- Dictated By: See Ferris Dictated Date: 12/04/2024 16:38 ET Assigned Physician: See Ferris Reviewed and Electronically Signed By: See Ferris Signed Date: 12/04/2024 16:47 ET Workstation ID: [id number] Transcribed By: Self Edit Transcribed Date: 12/04/2024 16:38 ET us Dorys Tan MD IMG BI PROCEDURES Final Result * (ABNORMAL) Lipid panel with reflex to direct LDL (08/01/2024 9:30 AM EDT) Cholesterol 187 0 - 200 mg/dL LAB CHEMISTRY METHOD 08/01/2024 1:31 PM EDT [facility] Triglycerides 48 0 - 150 mg/dL LAB CHEMISTRY METHOD 08/01/2024 1:31 PM EDT [facility] HDL 65 >=40 mg/dL LAB CHEMISTRY METHOD 08/01/2024 1:31 PM EDT [facility] LDL Calculated 112(H) 0 - 100 mg/dL LAB CHEMISTRY METHOD 08/01/2024 1:31 PM [facility] VLDL Cholesterol Nathaniel 9.6 mg/dL LAB CHEMISTRY METHOD 08/01/2024 1:31 PM EDT [facility] Non HDL Chol. (LDL+VLDL) 122 <145 mg/dL LAB CHEMISTRY METHOD 08/01/2024 1:31 PM EDT [facility] Chol/HDL Ratio 2.9 0.0 - 4.4 LAB CHEMISTRY METHOD 08/01/2024 1:31 PM EDT [facility] Blood Venous blood specimen / Unknown Venipuncture / Unknown 08/01/2024 9:30 AM EDT 08/01/2024 9:30 AM EDT Niki ARCEO LAB BLOOD ORDERABLES Final Resu lt [facility] [address] [place] [address], * Depression Screening (11/29/2023) [facility] Depression Screening abstracted [facility] Provider HEALTH MAINTENANCE Final Result * Cervical Cancer Screening: HPV (03/10/2023) [facility] Cervical Cancer Screening: HPV negative, abstracted [facility] Provider HEALTH MAINTENANCE Final Result * HIV Screening (09/22/2020) [facility] HIV Screening abstracted [facility] Provider HEALTH MAINTENANCE Final Result * Hepatitis C Screening (09/22/2020) [facility] Hepatitis C Screening abstracted [facility] Provider HEALTH MAINTENANCE Final Result from Last 3 Months or Most Recently Relevant to Health Maintenance Insurance [facility] Care Teams 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
== END 2025-01-28 14:51 | disposition home or self-care (01) ==
LOC: HO.HSMS 09:37
PROVIDERS: PCP Internal Medicine; Visit Provider Nurse Practitioner Family
DX: G43.009 Migraine without aura, not intractable, without status migrainosus (principal); R55 Syncope and collapse; R41.89 Other symptoms and signs involving cognitive functions and awareness; M54.2 Cervicalgia; M40.203 Unspecified kyphosis, cervicothoracic region; H54.62 Unqualified visual loss, left eye, normal vision right eye
CPT/HCPCS: 99214

== ENCOUNTER 2025-02-20 08:54 | Outpatient (REF) | payer OTHER, SELFPAY ==
--- NOTE | ~2025-02-20 | XR_ITS ---
EXAMINATION: XR CHEST 2 VIEWS HISTORY: R05.9 - Cough, unspecified COMPARISON: Comparison is made with the prior examination dated 04/04/2022. FINDINGS: PA and lateral views of the chest are submitted. The lungs are expanded and clear. There is no pleural effusion, pneumothorax, or pulmonary vascular congestion. The heart is normal in size. The bones are intact. XR/XR chest 2V IMPRESSION: No acute cardiopulmonary abnormality. Electronically signed by: Michel Beard MD 02/20/2025 09:52 AM R[facility]ETTA
[2025-02-20 15:17] LABS: Resp Syncy Virus RNA Qual PCR NEGATIVE (Negative); SARS COV2 PCR INHOUSE NEGATIVE (Negative)
== END 2025-02-20 08:55 | disposition home or self-care (01) ==
LOC: HO.HMGCX 08:54
PROVIDERS: PCP Internal Medicine; Visit Provider Physician Assistant Medical
DX: R06.02 Shortness of breath (principal); R09.3 Abnormal sputum; R07.89 Other chest pain; R05.3 Chronic cough; R53.83 Other fatigue; J02.9 Acute pharyngitis, unspecified
CPT/HCPCS: 71046; 87637

== ENCOUNTER 2025-02-20 08:54 | Outpatient (AMB) | payer OTHER, SELFPAY ==
[2025-02-20 09:07] VITALS: BP 100/64; PULSE 100; TEMP 36.9; O2SAT 100; BMI 22.5
--- NOTE | 2025-02-20 09:07 | AM.OFFWIN_ITS ---
Intake Vital Signs 02/20/25 09:07 Height 5 ft 5 in Weight 135 lb BMI 22.5 BP 100/64 Blood Pressure Location Lt brachial Position Sitting Pulse 100 Pulse Source Pulse Oximeter Temp 98.4 F Temp Source Oral Pulse Oximetry (%) 100 Oxygen Delivery Method Room Air Intake Visit Reasons: EP cough tightness in chest sore throat Intake Note: Patient presents c/o chest tightness/congestion/burning, SOB, cough, phlegm x1 week Patient Tobacco Use Status: Never used Tobacco Allergies Sulfa (Sulfonamide Antibiotics) Allergy (Intermediate, Verified 02/20/25 09:10) Swelling Do you need a note to return to daycare/school/sports/work: No HPI HPI Comments History of Present Illness Details History - The patient is a 34-year-old female pr esenting with a persistent cough that began approximately 10 days ago. - The cough is productive of mucus and i s associated with a burning pain in the chest, which is worse at night. - She reports associated fatigue and aisha e shortness of breath. - She has been taking Mucinex at night t o manage symptoms. - The patient denies any history of asth ma, allergies, postnasal drip, or fever. - She has had no sick contacts at home a nd reports negative lzyj-lwr-wstqucy tests for COVID-19 and influenza at home. - She denies SOB, abd pain, n/v/d. - She is not a smoker. - She has no recent travel. Physical Exam General: Cooperative, healthy appearing, comfortable and no acute distress Orientation/consciousness: Patient oriented x3 Limitations: No limitations Head: Normal to inspection Ears: Hearing grossly normal bilaterally, external ears normal and TM's normal bilaterally Nose: Normal external nose present, normal nares present, and no nasal discharge present. Face and sinus: Sinuses nontender to palpation. Mouth: Normal oral and palatal mucosa present and moist mucous membranes noted. Throat: Tonsils normal. Uvula is midline. Posterior oropharynx with erythema and no exudates. Eyes: Appearance normal, both eyes and all related structures Neck: Normal visual inspection, full ROM. No lymphadenopathy noted. Respiratory: Clear to auscultation bilaterally. Normal respiratory effort, able to speak in complete sentences. No respiratory distress, not tachypneic, no tripod positioning and no use of accessory muscles. Cardiovascular: Regular rate and rhythm. Normal S1 and S2 Skin: No rashes or lesions noted Patient was informed and verbally consented to the use of an ambient scribe for clinic note documentation during this visit FOR[facility]LY [facility] Medical History Patient denies medical problems Family History Mother No problems noted. Father No problems noted. Social History Alcohol intake: current Alcohol intake frequency: holidays/special occasions only Patient Tobacco Use Status: Never used Tobacco Review of Systems Const All systems reviewed & are unremarkable except as noted in HPI and below Physical Exam Vital Signs: Last Vital Signs Temp 98.4 F 02/20/25 09:07 Pulse 100 02/20/25 09:07 BP 100/64 02/20/25 09:07 Pulse Ox 100 02/20/25 09:07 Oxygen Delivery Method Room Air 02/20/25 09:07 BMI result Body Mass Index 22.5 Results Reviewed Results Reviewed: will review the CXR in the office Assessment & Plan Assessment & Plan (1) Cough: Code(s): R05.9 - Cough, unspecified Qualifiers: Cough type: acute Qualified Code(s): R05.1 - Acute cough Plan Most likely Acute Cough due to RSV vs CAP vs covid vs flu vs URI vs bronchitis plan - The patient presents with a productive cough lasting approximately 10 days, concerning for a lower respiratory tract infection. - To further evaluate the etiology, a respiratory panel for COVID-19, influenza, and RSV will be performed. - A chest x-ray is ordered to rule out pneumonia, which is a eng differential. - The patient will be started on a Z-Cl empirically. - If the chest x-ray is negative, the patient is to continue the Z-Cl for presumed bronchitis. - A prescription for cough medicine will also be sent. - The results of the diagnostic tests will be communicated to the patient via phone call. Orders: Orders SARS-CoV2/FLU/RSV Today R09.89 - Other specified symptoms and signs involving the circulatory and respiratory systems XR chest 2V Today R05.9 - Cough, unspecified Medications: New azithromycin For 250 mg dose pack: take 500 mg today (day 1), then 250 mg for 4 days (days 2-5) PO 6 tabs 0RF benzonatate 100 mg PO bid-tid PRN 21 caps 0RF Cough 7 days Coding Level of Care Code Est Pt Level 4 (30957) Diagnoses Acute cough R05.1 Cough type: acute
--- OUTSIDE RECORDS SUMMARY | 2025-02-20 09:35 | XMS_ITS | Clinical Summary ---
Author Organization [facility] [address] [place] [address] [place] [phone] Phone Care Team Providers Care Physician Scientist Name Role Phone Dorys Tan MD Primary [...] 12/04/2024 Results [facility]-Up [facility] [address] [phone] Dorys Almaraz MD 12/01/2024 10:50 AM EDT - 12/01/2024 11:59 PM EDT Hospital Encounter Radiology Department - [address] [phone] Encounter for screening mammogram for breast cancer Discharge Disposition: Home or Self Care from Last 3 Months Immunizations Immunization Administration Dates Next Due DTaP (Infanrix) 6wks to less than 7yo ,02/25/1994,07/03/1993,02/09 [id number] (Pentacel) 2mo to less than 5yo 02/09/1993 [...] for your loved ones. For example, child psychiatrist or elderly care for an older adult? [...] 3:00 PM EDT Office Visit Adult Medicine [facility] [address] [place], [place] [phone] Niki Mckeon PA [address] [place], [place] Health Maintenance Due Date Last Done [...] dense breasts and family history Mammo Location: [facility], [address] [place] [address], [phone], . -------- FINAL REPORT -------- Dictated By: See Ferris Dictated Date: 12/04/2024 16:38 ET Assigned Physician: See Ferris Reviewed and Electronically Signed By: See Ferris Signed Date: 12/04/2024 16:47 ET Workstation ID: [id number] Transcribed By: Self Edit Transcribed Date: 12/04/2024 [...] to dense breasts and familyhistory Mammo Location: [facility], [address] [place] [address], [id number], . -------- FINAL REPORT -------- Dictated By: See Ferris Dictated Date: 12/04/2024 16:38 ET Assigned Physician: See Ferris Reviewed and Electronically Signed By: See Ferris Signed Date: 12/04/2024 16:47 ET Workstation ID: [id number] Transcribed By: Self Edit Transcribed Date: 12/04/2024 16:38 ET us Dorys Tan MD IMG BI PROCEDURES Final Result * (ABNORMAL) Lipid panel with reflex to direct LDL (08/01/2024 9:30 AM EDT) Cholesterol 187 0 - 200 mg/dL LAB CHEMISTRY METHOD 08/01/2024 1:31 PM EDT [facility] Triglycerides 48 0 - 150 mg/dL LAB CHEMISTRY METHOD 08/01/2024 1:31 PM EDT [facility] HDL 65 >=40 mg/dL LAB CHEMISTRY METHOD 08/01/2024 1:31 PM EDT [facility] LDL Calculated 112(H) 0 - 100 mg/dL LAB CHEMISTRY METHOD 08/01/2024 1:31 PM [facility] VLDL Cholesterol Nathaniel 9.6 mg/dL LAB CHEMISTRY METHOD 08/01/2024 1:31 PM EDT [facility] Non HDL Chol. (LDL+VLDL) 122 <145 mg/dL LAB CHEMISTRY METHOD 08/01/2024 1:31 PM EDT [facility] Chol/HDL Ratio 2.9 0.0 - 4.4 LAB CHEMISTRY METHOD 08/01/2024 1:31 PM EDT [facility] Blood Venous blood specimen / Unknown Venipuncture / Unknown 08/01/2024 9:30 AM EDT 08/01/2024 9:30 AM EDT Niki ARCEO LAB BLOOD ORDERABLES Final Resu lt [facility] [address] [place] [address], * Depression Screening (11/29/2023) [facility] Depression Screening abstracted [facility] Provider HEALTH MAINTENANCE Final Result * Cervical Cancer Screening: HPV (03/10/2023) [facility] Cervical Cancer Screening: HPV negative, abstracted [facility] Provider HEALTH MAINTENANCE Final Result * HIV Screening (09/22/2020) [facility] HIV Screening abstracted [facility] Provider HEALTH MAINTENANCE Final Result * Hepatitis C Screening (09/22/2020) [facility] Hepatitis C Screening abstracted [facility] Provider HEALTH MAINTENANCE Final Result from Last 3 Months or Most Recently Relevant to Health Maintenance Insurance [facility] Care Teams Physician Scientist Relationship Specialty Start Date End Date Dorys Tan MD [address] [place] [phone] PCP - General Internal Medicine 12/10/21
== END 2025-02-20 10:02 | disposition home or self-care (01) ==
PROVIDERS: PCP Internal Medicine; Visit Provider Physician Assistant Medical
DX: R05.1 Acute cough (principal)

== ENCOUNTER → 2025-02-20 09:42 | Outpatient (BNV) | payer OTHER, SELFPAY | PROVIDERS: PCP Internal Medicine; Visit Provider Radiology Diagnostic Radiology | DX: R05.9 Cough, unspecified (principal) | CPT/HCPCS: 71046 ==

== ENCOUNTER 2025-03-05 17:07 | Outpatient (AMB) | payer OTHER, SELFPAY ==
--- NOTE | 2025-03-05 15:49 | MHC.OFFVISPS ---
Intake Intake Visit Reasons: f/u consultation Chinese Medicine Practitioner Required: No Allergies Sulfa (Sulfonamide Antibiotics) Allergy (Intermediate, Verified 02/20/25 09:10) Swelling Medication List - Last Reconciled 03/05/25 by Lakisha Bruce APRN azithromycin For 250 mg dose pack: take 500 mg today (day 1), then 250 mg for 4 days (days 2-5) PO benzonatate 100 mg PO bid-tid PRN 7 days dextroamphetamine-amphetamine 10 mg (Adderall) 10 mg PO TID HPI- Psychiatric Chief Complaint: f/u consultation HPI Narrative: pt reports she is responding well to the adderall 10 mg 2-3 times a day depending on how long her work day is. Her concentration and focus is much improved. No side effects. She is working on self care. She denies SI or HI. She is functioning well at home and work. She started couples therapy and finds it very helpful. We discussed ending and her following up with neurology Past Psychiatric History: none Subjective Subjective Medication Compliance: Yes Side effects from medications: No Review of Systems Medical Review of Systems: unchanged Mental Status Exam Mental Status Exam Patient Appearance: Well Grooomed and Appropriate Patient Orientation: Person, Place, Time and Situation Level of Consciousness: Awake, Appropriate and Alert Patient Behavior: Appropriate, Cooperative and Good Eye Contact Mood Description: Cheerful and Anxious Affect Description: Cheerful and Anxious Patient Cognition Impaired: No Ability to Follow Directions: Good Speech Pattern: Clear Memory Description: Intact Hallucinations: None Delusions: Not Present Thought Process: Intact Thought Content: positive for Intact Judgement: Good Telehealth Telehealth Telehealth Platform: [facility] Location of provider rendering services: practice address Location of patient: address on file Patient Identification confirmed using: Name, : Yes Telehealth method: video Patient verbally consented to treatment: Yes Patient verbally consented to billing insurance company: Yes Patient informed of any privacy concerns related to visit: Yes Minutes spent on Phone/Video with Pt.: 22 Assessment and Plan Assessment & Plan (1) ADHD (attention deficit hyperactivity disorder): Status: Acute Qualifiers: Attention deficit-hyperactivity disorder type: combined inattentive-hyperactive Qualified Code(s): F90.2 - Attention-deficit hyperactivity disorder, combined type Code(s): F90.9 - Attention-deficit hyperactivity disorder, unspecified type Plan continue adderall 10mg tid refer back to neurology Medications: Refilled dextroamphetamine-amphetamine 10 mg (Adderall) administer doses at least 4-6 hours apart; Partial Fill upon patient request. 10 mg PO TID 90 tabs 0RF F90.2 - Attention-deficit hyperactivity disorder, combined type Counseling and coordination of Care Pt. Self Management counseling: Nutrition education and improvement, Sleep hygiene, Cognitive restructuring and General coping skills Medication management counseling: Effectiveness, Side effects, Dosing range, Duration, Drug interaction and Adherence Diagnosis and Prognosis Counseling: Accuracy of diagnosis, Prognosis over time, Impact of diagnosis on life functions, Impact of family relationship, Problematic behaviors secondary to diagnosis and Adequacy of current interventions Details: I spent 30 minutes reviewing the record, seeing the patient and documenting in the medical record. Counseling provided to the patient/caregiver as outlined below. Addressed patient/caregiver concerns regarding current medication regime including effective adherence. Addressed patient/caregiver concerns regarding diagnosis and prognosis including accuracy of diagnosis, prognosis over time, impact of diagnosis. Addressed patient/caregiver concerns regarding impact of recent stressors. [facility] Medical History Patient denies medical problems Family History Mother No problems noted. Father No problems noted. 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 Grew up mostaly with grandmother as parents had addiction issues; she and her younger sister went to foster care off and on. She and sister spent 2 yrs in foster care until pt turned 20 and then she took custody of her younger sister. she also has 2 older sister one of whom recently from metastatic breast cancer. Substance History: none Trauma History: yes childhood Coding Level of Care Code Tele Est Pt Level 4 (05164) Diagnoses Attention deficit hyperactivity disorder (ADHD), combined type F90.2 Attention deficit-hyperactivity disorder type: combined inattentive-hyperactive
--- OUTSIDE RECORDS SUMMARY | 2025-03-05 19:11 | XMS_ITS | Clinical Summary ---
Author Organization [facility] [address] [place] [address] [place] [phone] Phone Care Team Providers Care Twister Doffer Name Role Phone Dorys Tan MD Primary [...] hyperactive type 07/31/2024 Overview (07/31/2024): 07/2024: Sees [facility] (Lakisha March) POTS (postural orthostatic tachycardia syndrome) [...] Department Care Team Description 12/04/2024 Results Follow-Up [facility] Medicine [address] [phone] oDrys Tan MD from Last 3 Months Immunizations Immunization Administration Dates Next Due DTaP (Infanrix) 6wks to less than 7yo ,02/25/1994,07/03/1993,02/09 [id number] (Pentacel) 2mo to less than 5yo 02/09/1993 [...] disorder (ADHD), predominantly hyperactive type 07/31/202407/2024: Sees [facility] POTS (postural orthostatic tachycardia syndrome) 07/31/2024 Family [...] your loved ones. For example, child care coordinator or elderly care for an older adult? [...] 3:00 PM EDT Office Visit Adult Medicine [facility] [address] [place], [place] [phone] Niki Mckeon PA [address] [place], [place] Health Maintenance Due Date Last Done Comments Drug Screen 1992 Non-Opioid Controlled Substance Agreement 1992 Hepatitis B Vaccines (2 of 3 - [...] Procedure Name Priority Date/Time Associated Diagnosis Comments XR CHEST 2 VIEWS Routine 02/20/2025 2:02 PM EST LIPID PANEL WITH REFLEX TO DIRECT LDL Routine 08/01/2024 9:30 AM EDT Screening for cardiovascular condition DEPRESSION SCREENING Routine 11/29/2023 HPV Routine 03/10/2023 HEPATITIS C SCREENING Routine 09/22/2020 HIV SCREENING Routine 09/22/2020 from Last 3 Months or Most Recently Relevant to Health Maintenance Results * XR Chest 2 Views (02/20/2025 2:02 PM EST) Anatomical Region Laterality Modality Body Radiographic Brittany ging Salma ARCEO IMG XR PROCEDURES Final Result * (ABNORMAL) Lipid panel with reflex to direct LDL (08/01/2024 9:30 AM EDT) Cholesterol 187 0 - 200 mg/dL LAB CHEMISTRY METHOD 08/01/2024 1:31 PM EDT [facility] Triglycerides 48 0 - 150 mg/dL LAB CHEMISTRY METHOD 08/01/2024 1:31 PM EDT [facility] HDL 65 >=40 mg/dL LAB CHEMISTRY METHOD 08/01/2024 1:31 PM EDT [facility] LDL Calculated 112(H) 0 - 100 mg/dL LAB CHEMISTRY METHOD 08/01/2024 1:31 PM EDT [facility] VLDL Cholesterol Nathaniel 9.6 mg/dL LAB CHEMISTRY METHOD 08/01/2024 1:31 PM EDT [facility] Non HDL Chol. (LDL+VLDL) 122 <145 mg/dL LAB CHEMISTRY METHOD 08/01/2024 1:31 PM T [facility] Chol/HDL Ratio 2.9 0.0 - 4.4 LAB CHEMISTRY METHOD 08/01/2024 1:31 PM EDT [facility] Blood Venous blood specimen / Unknown Venipuncture / Unknown 08/01/2024 9:30 AM EDT 08/01/2024 9:30 AM EDT Niki ARCEO LAB BLOOD ORDERABLES Final Resu lt [facility] [address] [place] [address], * Depression Screening (11/29/2023) [facility] Depression Screening abstracted Historical Provider HEALTH MAINTENANCE Final Result * Cervical Cancer Screening: HPV (03/10/2023) [facility] Cervical Cancer Screening: HPV negative, abstracted [facility] Provider HEALTH MAINTENANCE Final Result * HIV Screening (09/22/2020) [facility] HIV Screening abstracted [facility] Provider HEALTH MAINTENANCE Final Result * Hepatitis C Screening (09/22/2020) Hepatitis C Screening abstracted Historical Provider HEALTH MAINTENANCE Final Result from Last 3 Months or Most Recently Relevant to Health Maintenance Insurance [facility] Care Teams Twister Doffer Relationship Specialty Start Date End Date Dorys Tan MD [address] [place] [phone] PCP - General Internal Medicine 12/10/21
== END 2025-03-05 17:08 | disposition home or self-care (01) ==
LOC: HO.HOP 17:07
PROVIDERS: PCP Internal Medicine; Visit Provider Clinical Nurse Specialist Psychiatric/Mental Health
DX: F90.2 Attention-deficit hyperactivity disorder, combined type (principal)
CPT/HCPCS: 99214